=== PATIENT | female | born 1950 | race Caucasian/White ===

== ENCOUNTER 2016-05-30 12:26 | Outpatient (CLI) | payer OTHER | END 2016-05-30 12:27 | disposition home or self-care (01) | DX: E11.9 Type 2 diabetes mellitus without complications (principal) ==

== ENCOUNTER 2016-06-06 10:42 | Outpatient (CLI) | payer OTHER | END 2016-06-06 10:43 | disposition home or self-care (01) | DX: M25.50 Pain in unspecified joint (principal) ==

== ENCOUNTER 2016-07-03 09:10 | Outpatient (CLI) | payer OTHER | END 2016-07-03 09:11 | disposition home or self-care (01) | DX: Z12.2 Encounter for screening for malignant neoplasm of respiratory organs (principal); Z87.891 Personal history of nicotine dependence; J43.9 Emphysema, unspecified ==

== ENCOUNTER 2016-12-31 09:56 | Outpatient (CLI) | payer OTHER ==
--- NOTE | 2017-01-01 16:06 | Mammography Report ---
DIGITAL SCREENING MAMMOGRAM: 12/31/2016 CLINICAL INDICATION: A 66-year-old, for screening. COMPARISON: 10/2015, 10/2014, 09/2013, 09/2012, 09/2011, 07/2010, 07/2009. TECHNIQUE: Routine CC and MLO projections were obtained of the breasts. FINDINGS: Parenchymal tissue within both breasts is heterogeneously dense, which may lower the sensi tivity of mammography; however, there are no dominant masses, suspicious microcalcifications, or seco ndary signs of malignancy. In comparison to the previous studies, there are no significant changes. ASSESSMENT: NO MAMMOGRAPHIC EVIDENCE OF MALIGNANCY. NO SIGNIFICANT INTERVAL CHANGES. RECOMMENDATION: Screening mammography is recommended annually. BIRADS category 1 - negative. STANDARD QUALIFYING STATEMENTS 1. This examination was reviewed with the aid of Computed-Aided Detection (CAD). 2. A negative or benign imaging report should not delay biopsy if clinically suspicious findings are present. Consider surgical consultation if warranted. More than 5% of cancers are not identified by i maging. 3. Dense breasts may obscure an underlying neoplasm. JOB #: [id number] EXT JOB #:[id number]
== END 2016-12-31 09:57 | disposition home or self-care (01) ==
LOC: DI.N 09:56
PROVIDERS: ATTEND Family Medicine
DX: Z12.31 Encounter for screening mammogram for malignant neoplasm of breast (principal)
CPT/HCPCS: 77067

== ENCOUNTER 2017-06-27 08:00 | Outpatient (CLI) | payer OTHER ==
[2017-06-27 13:42] LABS: BASOPHILS % (AUTO) 0.3 %; EOSINOPHILS # (AUTO) 0.2 10^3/uL (0.0-0.7); EOSINOPHILS % (AUTO) 2.5 %; HGB - HEMOGLOBIN 12.4 g/dL (12.0-16.0); LYMPHOCYTES # (AUTO) 2.9 10^3/uL (1.5-3.5); LYMPHOCYTES % (AUTO) 44.2 %; MEAN CORPUSCULAR HEMOGLOBIN 30.5 pg (27.0-31.0); MEAN CORPUSCULAR VOLUME 89.8 fL (81.0-99.0); MEAN PLATELET VOLUME 8.2 fL (7.9-10.8); MONOCYTES # (AUTO) 0.6 10^3/uL (0.0-1.0); MONOCYTES % (AUTO) 9.2 %; NEUTROPHILS # (AUTO) 2.9 10^3/uL (1.5-6.6); NEUTROPHILS % (AUTO) 43.8 %; PLT - PLATELET COUNT 234 10^3/uL (130-450); RED BLOOD COUNT 4.05 10^6/uL (4.20-5.40); RED CELL DISTRIBUTION WIDTH 13.9 % (12.0-15.0); WHITE BLOOD COUNT 6.6 x10^3/uL (4.8-10.8)
[2017-06-27 14:04] LABS: ALBUMIN 4.1 g/dL (3.2-5.5); ALBUMIN/GLOBULIN RATIO 1.3 (1.0-2.2); ALKALINE PHOSPHATASE 61 IU/L (42-121); ALT ALANINE AMINOTRANSFERASE 17 IU/L (10-60); AST ASPARTATE AMINOTRANSFERASE 22 IU/L (10-42); BILIRUBIN,TOTAL 0.7 mg/dL (0.2-1.0); BUN - BLOOD UREA NITROGEN 13 mg/dL (6-20); CALCIUM 8.8 mg/dL (8.5-10.3); CARBON DIOXIDE - CO2 22 mmol/L (21-32); CHLORIDE 100 mmol/L (101-111); CHOL/HDL RATIO 3.1 (<4.4); CHOLESTEROL 137 mg/dL; GFR - MDRD 56 (>89); GLUCOSE 125 mg/dL (70-100); HDL CHOLESTEROL 44 mg/dL; LDL CHOLESTEROL,CALCULATED 52 mg/dL; LDL/HDL RATIO 1.2 (<4.4); SODIUM 131 mmol/L (135-145); TOTAL PROTEIN 7.2 g/dL (6.7-8.2); VLDL CHOLESTEROL 41 mg/dL
[2017-06-27 14:07] LABS: THYROID STIMULATING HORMONE 4.24 uIU/mL (0.34-5.60)
[2017-06-27 14:12] LABS: HB2 TOTAL 13.4 g/dL; HEMOGLOBIN A1C 0.63 g/dL; HEMOGLOBIN A1C % 6.5 % (4.6-6.2)
[2017-06-27 14:13] LABS: FERRITIN 26.4 ng/mL (11.0-306.8)
== END 2017-06-27 08:01 | disposition home or self-care (01) ==
LOC: LAB.WCP 08:00
PROVIDERS: ATTEND Family Medicine
DX: E11.9 Type 2 diabetes mellitus without complications (principal); G25.9 Extrapyramidal and movement disorder, unspecified
CPT/HCPCS: 36415; 80053; 80061; 82043; 82728; 83036; 83721; 84443; 85025

== ENCOUNTER 2017-07-12 07:31 | Outpatient (CLI) | payer OTHER ==
--- NOTE | 2017-07-14 10:42 | CT Report ---
EXAM CT LUNG SCREEN EXAM DATE: 07/12/2017 08:00 AM. HISTORY: 67-year-old patient with 84-ibbq-dvyn smoking history and other risk factors. Currently smok ing: No. Years since quitting: Within the last 15 years. In remission. COMPARISON: 07/03/2016. 10/31/2012. TECHNIQUE: CT examination of the entire thorax without contrast was performed using low-dose techniqu e. Thin section coronal, axial, sagittal and MIP axial images were obtained. In accordance with CT protocol optimization, one or more of the following dose reduction techniques w ere utilized for this exam: automated exposure control, adjustment of mA and/or KV based on patient s ize, or use of iterative reconstructive technique. FINDINGS: Nodules: Right upper lobe: None. Right middle lobe: None. Right lower lobe: None. Left upper lobe: None. Left lower lobe: None. Emphysema: Emphysematous changes again evident. Pleura: Unremarkable. Aorta: Calcified plaque in the thoracic aorta. No aneurysm. Mediastinum: Visualized thyroid gland is unremarkable. No enlarged mediastinal or hilar lymph nodes o n these unenhanced images. The largest lymph node is precarinal measuring 8-9 mm with fatty hilum. Fi ndings are unchanged. Tiny hiatal hernia. Coronary Calcifications: Moderate degree of coronary artery calcified plaque. Other Findings: Bronchial dilatation is noted bilaterally with scattered very minimal ground-glass op acities. There is bronchial dilatation. There is linear scar/atelectasis bilaterally. Included portions of the liver, gallbladder, spleen, adrenals and kidneys are unremarkable. Fatty rep lacement of the pancreas. Abdominal aortic calcified plaque. Included portions of the stomach and sma ll bowel are unremarkable. Included portions of the colon demonstrate several diverticula. Degenerative changes of the thoracic spine. Thoracic scoliosis. Small left fifth rib again seen. IMPRESSION: Lung-RADS ASSESSMENT CATEGORY: 1 - negative. Probability of malignancy: Follow-up low-dose chest CT in 12 months with annual screening. RECOMMENDATION: Recommended follow up based on Lung-RADS guidelines. [facility] Referring Provider Line: [phone] SITE ID: [id number]
== END 2017-07-12 07:32 | disposition home or self-care (01) ==
LOC: DI 07:31
PROVIDERS: ATTEND Family Medicine
DX: Z12.2 Encounter for screening for malignant neoplasm of respiratory organs (principal); J43.9 Emphysema, unspecified; I25.10 Atherosclerotic heart disease of native coronary artery without angina pectoris; Z87.891 Personal history of nicotine dependence

== ENCOUNTER 2018-04-01 10:09 | Outpatient (CLI) | payer MEDICARE ==
--- NOTE | 2018-04-03 08:46 | Mammography Report ---
Reason: SCREENING MAMMO Procedure Date: 04/01/2018 Accession Number: [id number] / [id number] Procedure: MGN - Screening Mammo Dig Bilat CPT Code: FULL RESULT: EXAM: Screening Mammo Dig Bilat DATE: 04/01/2018 10:41 AM CLINICAL HISTORY: 68-year-old female presents for screening. TECHNIQUE: Bilateral CC and MLO views were obtained. COMPARISON: 12/31/2016, 10/24/2015, 10/20/2014, 10/10/2014. FINDINGS: The breasts demonstrate heterogeneously dense fibroglandular parenchyma bilaterally. No suspicious masses, clustered microcalcifications, or regions of architectural distortion are identified. IMPRESSION: Negative examination RECOMMENDATION: Routine annual screening unless otherwise clinically indicated. BIRADS CATEGORY 1: Negative STANDARD QUALIFYING STATEMENTS: 1. This examination was reviewed with the aid of Computer-Aided Detection (CAD). 2. A negative or benign imaging report should not delay biopsy if clinically suspicious findings are present. Consider surgical consultation if warranted. More than 5% of cancers are not identified by imaging. 3. Dense breasts may obscure an underlying neoplasm. 4. This examination was reviewed without the aid of 3D breast imaging (tomosynthesis).
== END 2018-04-01 10:10 | disposition home or self-care (01) ==
LOC: DI.N 10:09
DX: Z12.31 Encounter for screening mammogram for malignant neoplasm of breast (principal)
CPT/HCPCS: 77067

== ENCOUNTER 2018-10-01 12:25 | Outpatient (CLI) | payer MEDICARE ==
--- NOTE | 2018-10-01 15:33 | CT Report ---
Reason: HX OF TOBACCO USE Procedure Date: 10/01/2018 Accession Number: [id number] / [id number] Procedure: CT - Low Dose Lung Cancer Screen CPT Code: FULL RESULT: EXAM CT LUNG SCREEN EXAM DATE: 10/01/2018 12:47 PM. HISTORY: 68-year-old patient with 21-kogl-dylt smoking history. Currently smoking: No. Years since quittin. COMPARISON: CHEST SCREEN LOW DOSE W/O 07/12/2017 7:50 AM. TECHNIQUE: CT examination of the entire thorax without contrast was performed using low-dose technique. Thin section coronal, axial, sagittal and MIP axial images were obtained. In accordance with CT protocol optimization, one or more of the following dose reduction techniques were utilized for this exam: automated exposure control, adjustment of mA and/or KV based on patient size, or use of iterative reconstructive technique. FINDINGS: Nodules: Right upper lobe: 0.6 cm groundglass focus image 30 series 4. 2 mm nodule medially image 30 peripheral calcified 2 mm nodule consistent with granuloma image 51. Right middle lobe: None. Right lower lobe: None. Left upper lobe: None. Left lower lobe: 3 mm nodule image 98. Emphysema: Moderate. Pleura: Unremarkable. Aorta: Mildly calcified. Mediastinum: Prominent subcarinal lymph node measuring up to 1.5 cm in short axis with preserved morphology, and does not meet size criteria. Coronary calcifications: Moderate three-vessel calcifications. Other pulmonary findings: None. Other extrapulmonary findings: None. IMPRESSION: Lung-RADS ASSESSMENT CATEGORY: 2 - benign appearance. Probability of malignancy: Less than 1%. RECOMMENDATION: Continue annual low-dose chest CT screening. [facility]
== END 2018-10-01 12:26 | disposition home or self-care (01) ==
LOC: DI 12:25
PROVIDERS: ATTEND Family Medicine
DX: Z12.2 Encounter for screening for malignant neoplasm of respiratory organs (principal); J43.9 Emphysema, unspecified; Z87.891 Personal history of nicotine dependence

== ENCOUNTER 2018-10-28 07:13 | Outpatient (CLI) | payer MEDICARE ==
[2018-10-28 12:52] LABS: ALBUMIN 4.1 g/dL (3.2-5.5); ALBUMIN/GLOBULIN RATIO 1.2 (1.0-2.2); ALKALINE PHOSPHATASE 62 IU/L (42-121); ALT ALANINE AMINOTRANSFERASE 19 IU/L (10-60); AST ASPARTATE AMINOTRANSFERASE 19 IU/L (10-42); BILIRUBIN,TOTAL 0.7 mg/dL (0.2-1.0); BUN - BLOOD UREA NITROGEN 9 mg/dL (6-20); CALCIUM 8.9 mg/dL (8.5-10.3); CARBON DIOXIDE - CO2 23 mmol/L (21-32); CHLORIDE 100 mmol/L (101-111); CHOL/HDL RATIO 2.7 (<4.4); CHOLESTEROL 142 mg/dL; CREATININE 0.9 mg/dL (0.4-1.0); GFR - MDRD 63 (>89); GLUCOSE 141 mg/dL (70-100); HDL CHOLESTEROL 52 mg/dL; LDL CHOLESTEROL,CALCULATED 62 mg/dL; LDL/HDL RATIO 1.2 (<4.4); SODIUM 133 mmol/L (135-145); TOTAL PROTEIN 7.5 g/dL (6.7-8.2); VLDL CHOLESTEROL 28 mg/dL
[2018-10-28 12:59] LABS: HB2 TOTAL 13.3 g/dL; HEMOGLOBIN A1C 0.69 g/dL; HEMOGLOBIN A1C % 6.9 % (4.6-6.2)
== END 2018-10-28 07:14 | disposition home or self-care (01) ==
LOC: LAB.WCP 07:13
PROVIDERS: ATTEND Family Medicine
DX: I10 Essential (primary) hypertension (principal); E78.5 Hyperlipidemia, unspecified; E11.9 Type 2 diabetes mellitus without complications
CPT/HCPCS: 36415; 80053; 80061; 83036; 83721

== ENCOUNTER 2018-12-04 11:15 | Outpatient (CLI) | payer MEDICARE ==
--- NOTE | 2018-12-04 23:36 | Ultrasound Report ---
Reason: DIABETES MELLITUS, NICOTINE ADDICTION, IN REMISSIO Procedure Date: 12/04/2018 Accession Number: [id number] / [id number] Procedure: US - Ankle Brachial Index CPT Code: FULL RESULT: EXAM: BILATERAL ANKLE/BRACHIAL INDEX EXAM DATE: 12/04/2018 12:12 PM. CLINICAL HISTORY: DIABETES MELLITUS, NICOTINE ADDICTION, IN REMISSION. COMPARISON: None. TECHNIQUE: A blood pressure cuff and pulse volume recording Doppler ultrasound was used to evaluate the arterial pressures in the arms and ankle. No images were acquired. FINDINGS: Brachial pressure: Right brachial artery: 155 mmHg, index 1.00 Left brachial artery: 155 mmHg, index 1.00 Right ankle pressures: 155 mmHg, index 1.0 Left ankle pressures: 164 mmHg, index 1.06 IMPRESSION: 1. Right ankle/brachial index: 1.0. 2. Left ankle/brachial index: 1.06. ANKLE/BRACHIAL INDEX REFERENCE STANDARDS 1.0-1.4: Normal 0.90-0.99: Borderline < 0.9: Abnormal [facility]
== END 2018-12-04 11:16 | disposition home or self-care (01) ==
LOC: DI 11:15
PROVIDERS: ATTEND Family Medicine
DX: E11.9 Type 2 diabetes mellitus without complications (principal); F17.201 Nicotine dependence, unspecified, in remission
CPT/HCPCS: 93922

== ENCOUNTER 2019-04-13 09:13 | Outpatient (CLI) | payer MEDICARE ==
--- NOTE | 2019-04-13 15:03 | Mammography Report ---
Reason: ROUTINE MAMMO Procedure Date: 04/13/2019 Accession Number: [id number] / [id number] Procedure: MGN - Screening Mammo Dig Bilat CPT Code: Final Report FULL RESULT: EXAM: Screening Mammo Dig Bilat DATE: 04/13/2019 9:43 AM CLINICAL HISTORY: The patient is an asymptomatic 68-year-old female presenting for screening mammography. No personal nor family history breast cancer. TECHNIQUE: (B) - Bilateral CC and MLO views were obtained. COMPARISON: 04/01/2018, a 01/07/2016, 10/24/2015, 10/10/2014 and 10/05/2013 PARENCHYMAL PATTERN: (D) - The breasts demonstrate heterogeneously dense fibroglandular parenchyma bilaterally. FINDINGS: The pattern of asymmetry is stable given positional variation. There are no suspicious masses, calcifications, or areas of distortion. IMPRESSION: Negative examination. BI-RADS category 1. RECOMMENDATION: (ANNUAL) - Recommend routine annual screening mammography. BI-RADS CATEGORY: (1) - Negative. STANDARD QUALIFYING STATEMENTS: 1. This examination was not reviewed with the aid of Computer-Aided Detection (CAD). 2. A negative or benign imaging report should not preclude biopsy if clinically suspicious findings are present. 3. Dense breasts may obscure an underlying neoplasm.
== END 2019-04-13 09:14 | disposition home or self-care (01) ==
LOC: DI.N 09:13
DX: Z12.31 Encounter for screening mammogram for malignant neoplasm of breast (principal)
CPT/HCPCS: 77067

== ENCOUNTER 2019-04-20 08:00 | Outpatient (CLI) | payer MEDICARE ==
[2019-04-20 13:53] LABS: BASOPHILS % (AUTO) 0.5 %; EOSINOPHILS # (AUTO) 0.2 10^3/uL (0.0-0.7); EOSINOPHILS % (AUTO) 2.9 %; HGB - HEMOGLOBIN 12.7 g/dL (12.0-16.0); LYMPHOCYTES # (AUTO) 2.8 10^3/uL (1.5-3.5); LYMPHOCYTES % (AUTO) 36.2 %; MEAN CORPUSCULAR HEMOGLOBIN 30.5 pg (27.0-31.0); MEAN CORPUSCULAR HGB CONC 32.2 g/dL (32.0-36.0); MEAN CORPUSCULAR VOLUME 94.5 fL (81.0-99.0); MONOCYTES # (AUTO) 0.7 10^3/uL (0.0-1.0); MONOCYTES % (AUTO) 8.7 %; NEUTROPHILS # (AUTO) 3.9 10^3/uL (1.5-6.6); NEUTROPHILS % (AUTO) 51.2 %; PLT - PLATELET COUNT 246 10^3/uL (130-450); RED BLOOD COUNT 4.17 10^6/uL (4.20-5.40); RED CELL DISTRIBUTION WIDTH 13.8 % (12.0-15.0); WHITE BLOOD COUNT 7.7 x10^3/uL (4.8-10.8)
[2019-04-20 14:04] LABS: ALBUMIN 4.1 g/dL (3.2-5.5); ALBUMIN/GLOBULIN RATIO 1.3 (1.0-2.2); ALKALINE PHOSPHATASE 56 IU/L (42-121); ALT ALANINE AMINOTRANSFERASE 17 IU/L (10-60); AST ASPARTATE AMINOTRANSFERASE 18 IU/L (10-42); BILIRUBIN,TOTAL 0.9 mg/dL (0.2-1.0); BUN - BLOOD UREA NITROGEN 8 mg/dL (6-20); CALCIUM 9.1 mg/dL (8.5-10.3); CARBON DIOXIDE - CO2 25 mmol/L (21-32); CHLORIDE 97 mmol/L (101-111); CHOL/HDL RATIO 2.8 (<4.4); CHOLESTEROL 129 mg/dL; CREATININE 0.9 mg/dL (0.4-1.0); GFR - MDRD 62 (>89); GLUCOSE 136 mg/dL (70-100); HDL CHOLESTEROL 46 mg/dL; LDL CHOLESTEROL,CALCULATED 52 mg/dL; LDL/HDL RATIO 1.1 (<4.4); SODIUM 132 mmol/L (135-145); TOTAL PROTEIN 7.3 g/dL (6.7-8.2); VLDL CHOLESTEROL 31 mg/dL
[2019-04-20 14:27] LABS: HB2 TOTAL 12.9 g/dL; HEMOGLOBIN A1C 0.68 g/dL
[2019-04-20 14:44] LABS: CREATININE,URINE 211.9 mg/dL; MICROALBUM/CREATININE RATIO,UR 265.2 ug/mg (<30.0); MICROALBUMIN,URINE 56.2 mg/dL (0-300.0)
== END 2019-04-20 23:59 | disposition home or self-care (01) ==
LOC: LAB.WCP 08:00
PROVIDERS: ATTEND Family Medicine
DX: I10 Essential (primary) hypertension (principal); E11.9 Type 2 diabetes mellitus without complications; E78.5 Hyperlipidemia, unspecified
CPT/HCPCS: 36415; 80053; 80061; 82043; 82570; 83036; 83721; 84443; 85025

== ENCOUNTER 2019-11-16 07:19 | Outpatient (CLI) | payer MEDICARE ==
[2019-11-16 12:57] LABS: ALBUMIN 4.5 g/dL (3.2-5.5); ALBUMIN/GLOBULIN RATIO 1.6 (1.0-2.2); BILIRUBIN,TOTAL 0.6 mg/dL (0.2-1.0); CALCIUM 9.4 mg/dL (8.5-10.3); CREATININE 0.9 mg/dL (0.4-1.0); TOTAL PROTEIN 7.3 g/dL (6.7-8.2)
[2019-11-16 13:31] LABS: HB2 TOTAL 13.1 g/dL; HEMOGLOBIN A1C 0.63 g/dL; HEMOGLOBIN A1C % 6.6 % (4.6-6.2)
== END 2019-11-16 23:59 | disposition home or self-care (01) ==
LOC: LAB.WCP 07:19
PROVIDERS: ATTEND Family Medicine
DX: G89.18 Other acute postprocedural pain (principal); M25.561 Pain in right knee
CPT/HCPCS: 36415; 80053; 83036

== ENCOUNTER 2020-01-19 10:56 | Outpatient (CLI) | payer MEDICARE ==
--- NOTE | 2020-01-19 14:10 | CT Report ---
PROCEDURE: Low Dose Lung Cancer Screen INDICATIONS: NICOTINE ADDICTION,IN REMISSION TECHNIQUE: Noncontrast low-dose 5 mm thick sections acquired from the pulmonary apices to the posterior costophr enic angles. 7 mm thick coronal and sagittal MIP reformats were then acquired. For radiation dose r eduction, the following was used: automated exposure control, adjustment of mA and/or kV according t o patient size. COMPARISON: 10/01/2018 FINDINGS: Image quality: Excellent. Lungs and pleura: Subpleural paraseptal emphysematous changes in the apices bilaterally. Occasional centrilobular emphysema. Minor peripheral reticulation in the midlung zones and septal thickening at the lung bases. The right upper lobe 6 mm groundglass nodule and 2 mm medial apical nodule are no quynh yamilet seen. Subpleural granuloma anteriorly in the right upper lobe is stable. There is a 5 mm nodule i n the juxta fissural right middle lobe adjacent patchy groundglass atelectatic changes. No left lung nodules or suspicious masses. Airways are patent and of normal caliber. No pleural effusion. Mediastinum: Heart size is normal. Mild coronary artery calcification. No pericardial effusion. St able prominent precarinal lymph node measures 1.3 cm with preserved benign morphology. No other adeno chidi. Thoracic aorta and central pulmonary arteries are normal in size. Esophagus is normal in robert lisa. No hiatal hernia. Bones and chest wall: There is been a left fifth rib resection and there is mild thickening of the p osterolateral left pleural surface. Moderate S-shaped scoliosis of the thoracic spine with multilevel disc and endplate degeneration. No suspicious bony lesions. No vertebral body compression fractures . No axillary or supraclavicular adenopathy by size criteria. The thyroid is normal in size. Abdomen: Visualized upper abdomen solid organs and bowel loops appear normal in the absence of contr ast. IMPRESSION: 1. 5 mm juxta fissural right middle lobe lung nodule is likely a lymph node. 2. Emphysematous changes and minor peripheral reticulation. No other changes of pulmonary fibrosis. 3. Scoliosis, accentuated by remote left fifth rib resection. Reviewed by: Yovana Bryson MD on 01/19/2020 2:08 PM PDT Approved by: Yovana Bryson MD on 01/19/2020 2:08 PM PDT Station ID: [id number]
== END 2020-01-19 10:57 | disposition home or self-care (01) ==
LOC: DI 10:56
PROVIDERS: ATTEND Family Medicine
DX: Z12.2 Encounter for screening for malignant neoplasm of respiratory organs (principal); R91.1 Solitary pulmonary nodule; J43.9 Emphysema, unspecified; M41.9 Scoliosis, unspecified; F17.201 Nicotine dependence, unspecified, in remission
CPT/HCPCS: G0297 ×2

== ENCOUNTER 2020-03-02 06:32 | Day surgery (SDC) | payer MEDICARE ==
[2020-03-02] MEDS ORDERED: LACTATED RINGERS 1,000 ML IV ONE ×2 (06:55→09:01)
[2020-03-02] MEDS ORDERED: MIDAZOLAM 2 MG/2 ML VIAL IVP ONE (08:15)
[2020-03-02] MEDS ORDERED: fentaNYL 250 MCG/5 ML VIAL IVP ONE (08:15)
[2020-03-02 09:25] VITALS: BP 112/54
== END 2020-03-02 06:33 | disposition home or self-care (01) ==
LOC: SDS 06:32
PROVIDERS: ATTEND Surgery
PROC: 0DBL8ZZ Excision of Transverse Colon, Via Natural or Artificial Opening Endoscopic (ICD-10-PCS; 2020-03-02)
PROC: 0DBM8ZZ Excision of Descending Colon, Via Natural or Artificial Opening Endoscopic (ICD-10-PCS; principal; 2020-03-02 07:30)
DX: Z12.11 Encounter for screening for malignant neoplasm of colon (principal); D12.3 Benign neoplasm of transverse colon; K63.89 Other specified diseases of intestine; K57.30 Diverticulosis of large intestine without perforation or abscess without bleeding; Z87.891 Personal history of nicotine dependence
CPT/HCPCS: 45380; J3010; J7120

== ENCOUNTER 2020-05-17 08:49 | Outpatient (CLI) | payer MEDICARE ==
--- NOTE | 2020-05-18 12:30 | Mammography Report ---
BILATERAL DIGITAL SCREENING MAMMOGRAM 3D/2D: 05/17/2020 CLINICAL: Routine screening. Comparison is made to exams dated: 04/13/2019 mammogram, 04/01/2018 mammogram, 12/31/2016 mammogram, mammogram, 10/20/2014 mammogram, and 10/10/2014 mammogram - [facility]. The tissue of both breasts is predominantly fatty. No significant masses, calcifications, or other findings are seen in either breast. There has been no significant interval change. IMPRESSION: NEGATIVE There is no mammographic evidence of malignancy. Return to annual mammogram screening schedule is rec ommended. This exam was interpreted at Station ID: [id number]. NOTE: For mammograms, a report in lay terms will be sent to the patient. Approximately 15% of breast malignancies will not be visualized mammographically. In the management of a palpable breast mass, a negative mammogram must not discourage biopsy of a clinically suspicious lesion. Electronically Signed By: Vitaly Webber M.D., jr/velma:05/17/2020 09:27:41 ACR BI-RADS Category 1: Negative 3341F PARENCHYMAL PATTERN: (F) - The breast(s) demonstrate(s) diffuse fatty replacement. BI-RADS CATEGORY: (1) - 1 RECOMMENDATION: (ANNUAL) - Recommend routine annual screening mammography. [id number] return to screening LATERALITY: (B)
== END 2020-05-17 08:50 | disposition home or self-care (01) ==
LOC: DI.N 08:49
DX: Z12.31 Encounter for screening mammogram for malignant neoplasm of breast (principal)
CPT/HCPCS: 77067

== ENCOUNTER 2020-05-23 07:20 | Outpatient (CLI) | payer MEDICARE ==
[2020-05-23 12:56] LABS: HEMOGLOBIN A1c% 6.9 % (4.27-6.07)
[2020-05-23 13:20] LABS: BASOPHILS % (AUTO) 0.3 %; EOSINOPHILS # (AUTO) 0.3 10^3/uL (0.0-0.7); EOSINOPHILS % (AUTO) 4.9 %; HGB - HEMOGLOBIN 12.2 g/dL (12.0-16.0); LYMPHOCYTES # (AUTO) 2.5 10^3/uL (1.5-3.5); LYMPHOCYTES % (AUTO) 37.1 %; MEAN CORPUSCULAR HGB CONC 32.8 g/dL (32.0-36.0); MEAN CORPUSCULAR VOLUME 94.4 fL (81.0-99.0); MONOCYTES # (AUTO) 0.5 10^3/uL (0.0-1.0); NEUTROPHILS # (AUTO) 3.3 10^3/uL (1.5-6.6); NEUTROPHILS % (AUTO) 49.4 %; PLT - PLATELET COUNT 252 10^3/uL (130-450); RED BLOOD COUNT 3.94 10^6/uL (4.20-5.40); RED CELL DISTRIBUTION WIDTH 13.3 % (12.0-15.0); WHITE BLOOD COUNT 6.8 x10^3/uL (4.8-10.8)
[2020-05-23 13:42] LABS: CREATININE,URINE 140.4 mg/dL; MICROALBUM/CREATININE RATIO,UR 67.7 ug/mg (<30.0); MICROALBUMIN,URINE 9.5 mg/dL (0-300.0)
[2020-05-23 14:00] LABS: ALBUMIN/GLOBULIN RATIO 1.3 (1.0-2.2); ALKALINE PHOSPHATASE 57 IU/L (42-121); ALT ALANINE AMINOTRANSFERASE 14 IU/L (10-60); AST ASPARTATE AMINOTRANSFERASE 14 IU/L (10-42); BILIRUBIN,TOTAL 0.7 mg/dL (0.2-1.0); BUN - BLOOD UREA NITROGEN 9 mg/dL (6-20); CARBON DIOXIDE - CO2 25 mmol/L (21-32); CHLORIDE 95 mmol/L (101-111); CHOL/HDL RATIO 2.4 (<4.4); CHOLESTEROL 117 mg/dL; CREATININE 0.9 mg/dL (0.4-1.0); GLUCOSE 120 mg/dL (70-100); HDL CHOLESTEROL 48 mg/dL; LDL CHOLESTEROL,CALCULATED 52 mg/dL; LDL/HDL RATIO 1.1 (<4.4); SODIUM 129 mmol/L (135-145); TOTAL PROTEIN 7.2 g/dL (6.7-8.2); VLDL CHOLESTEROL 17 mg/dL
== END 2020-05-23 23:59 | disposition home or self-care (01) ==
LOC: LAB.WCP 07:20
PROVIDERS: ATTEND Family Medicine
DX: E87.1 Hypo-osmolality and hyponatremia (principal); E11.9 Type 2 diabetes mellitus without complications
CPT/HCPCS: 36415; 80053; 80061; 82043; 82570; 83036; 83721; 83930; 83935; 84300; 84443; 85025

== ENCOUNTER 2020-05-23 09:09 | Inpatient (IN) | payer MEDICARE ==
--- NOTE | 2020-05-23 10:19 | ED Physician Documentation ---
History of Present Illness - Stated complaint Stated Complaint: GLF - Chief complaint Chief Complaint: Trauma Ch/Bk - History obtained from History obtained from: Patient - Additonal information Additional information: Patient comes emergency department chief complaint of left shoulder, tailbone, and hip pain after sustaining a ground-level fall on the sidewalk. Patient states that she is not sure exactly what happened to cause her fall. She states she did not feel dizzy and thinks she may have just missed the curb or tripped on something. She states that somebody helped her get up into the car, but it hurt to walk. She did not hit her head or lose consciousness. No other complaints at this time. Review of Systems Ten Systems: 10 systems reviewed and negative Constitutional: reports: Reviewed and negative Eyes: reports: Reviewed and negative Ears: reports: Reviewed and negative Nose: reports: Reviewed and negative Throat: reports: Reviewed and negative Cardiac: reports: Reviewed and negative Respiratory: reports: Reviewed and negative GI: reports: Reviewed and negative : reports: Reviewed and negative Skin: reports: Reviewed and negative Musculoskeletal: reports: Extremity pain, Joint pain Neurologic: reports: Reviewed and negative Psychiatric: reports: Reviewed and negative Endocrine: reports: Reviewed and negative Immunocompromised: reports: Reviewed and negative PD PAST MEDICAL HISTORY - Past Medical History Cardiovascular: Hypertension, High cholesterol Respiratory: Other Endocrine/Autoimmune: Type 2 diabetes GI: Colon polyps : None HEENT: Other Psych: None Musculoskeletal: Osteoarthritis, Osteoporosis, Osteopenia Derm: None - Past Surgical History General: Colonoscopy Ortho: Knee replacement, Carpal Tunnel surgery HEENT: Tonsil/Adenoidectomy - Present Medications Home Medications: Ambulatory Orders Medication Instructions Recorded Confirmed Aspirin [Aspir 81] 81 mg PO DAILY 12/22/12 05/24/20 Atorvastatin Calcium 20 mg PO QPM 12/22/12 05/24/20 Calcium Carbonate/Vitamin D3 1 each PO BID 12/22/12 05/24/20 [Calcium + Vitamin D Tablet] Metformin HCl 1,000 mg PO BID 12/22/12 05/24/20 Pramipexole Di-HCl [Pramipexole 0.375 mg PO QPM 12/22/12 05/24/20 Dihydrochloride] diltiaZEM [Cardizem] 30 mg PO QPM 12/22/12 05/24/20 LORazepam [Lorazepam] 0.5 mg PO DAILY PRN 12/10/13 05/24/20 Gabapentin 300 mg PO BID 03/01/20 05/24/20 Metoprolol Succinate 25 mg PO BID 03/01/20 05/24/20 Albuterol Sulfate [Proair Hfa 1 - 2 puffs INH Q4H PRN 03/02/20 05/24/20 Inhaler] Iron,Carbonyl [Iron Chews] 1,565 mg PO DAILY 03/02/20 05/24/20 Loratadine 10 mg PO DAILY 03/02/20 05/24/20 Melatonin 5 mg PO DAILY 03/02/20 05/24/20 - Allergies Allergies/Adverse Reactions: Allergies Allergy/AdvReac Type Severity Reaction Status Date / Time No Known Drug Allergies Allergy Verified 05/23/20 09:19 - Social History Does the pt smoke?: No Smoking Status: Never smoker Does the pt drink ETOH?: Yes ETOH Use: Wine Does the pt have substance abuse?: No PD ED PE NORMAL - Vitals Vital signs reviewed: Yes - General General: Alert and oriented X 3, No acute distress - HEENT HEENT: Atraumatic, PERRL, EOMI, Moist mucous membranes - Neck Neck: Supple, no meningeal sign, No bony TTP - Cardiac Cardiac: RRR, No murmur, Strong equal pulses - Respiratory Respiratory: No respiratory distress, Clear bilaterally - Abdomen Abdomen: Soft, Non tender, Non distended - Derm Derm: Normal color, Warm and dry, No rash - Extremities Extremities: No deformity, Other (Tenderness palpation over posterior aspect of patient's left hip. Pain with attempts at range of motion. Mild shortening and rotation of the left lower extremity.) - Neuro Neuro: Alert and oriented X 3 - Psych Psych: Normal mood, Normal affect Results - Vitals Vitals: Oxygen O2 Source Room air - EKG (time done) 1034 Rate: Rate (enter#) (78) Rhythm: NSR, LAE Hood: Normal Intervals: Normal CA QRS: Normal Ischemia: Normal ST segments, Non specific changes Compare to prior EKG: Old EKG unavailable Computer interpretation: Agree with computer - Labs Labs: Laboratory Tests 05/23/20 05/23/20 05/23/20 10:29 10:29 10:29 WBC 14.8 H RBC 3.78 L Hgb 11.6 L Hct 36.0 L MCV 95.2 MCH 30.7 MCHC 32.2 RDW 13.3 Plt Count 230 MPV 9.6 Neut # (Auto) 12.3 H Lymph # (Auto) 1.3 L [place] # (Auto) 1.0 Eos # (Auto) 0.1 Baso # (Auto) 0.0 Absolute Nucleated RBC 0.00 Nucleated RBC % 0.0 PT 11.7 INR 1.0 Sodium Potassium Chloride Carbon Dioxide Anion Gap BUN Creatinine Estimated GFR (MDRD) Glucose Calcium Total Bilirubin AST ALT Alkaline Phosphatase Total Protein Albumin Globulin Albumin/Globulin Ratio Lipase Blood Type O POSITIVE Antibody Screen NEGATIVE 05/23/20 10:29 WBC RBC Hgb Hct MCV MCH MCHC RDW Plt Count MPV Neut # (Auto) Lymph # (Auto) [place] # (Auto) Eos # (Auto) Baso # (Auto) Absolute Nucleated RBC Nucleated RBC % PT INR Sodium 129 L Potassium 4.3 Chloride 95 L Carbon Dioxide 24 Anion Gap 10.0 BUN 10 Creatinine 0.9 Estimated GFR (MDRD) 62 L Glucose 149 H Calcium 8.9 Total Bilirubin 0.6 AST 21 ALT 13 Alkaline Phosphatase 59 Total Protein 6.5 L Albumin 3.8 Globulin 2.7 Albumin/Globulin Ratio 1.4 Lipase 29 Blood Type Antibody Screen - Rads (name of study) L hip/pelvis XR Radiology: Final report received, EMP read indepedently, See rad report (subcapital fx) CXR Radiology: Final report received, EMP read indepedently, See rad report (NAD) PD MEDICAL DECISION MAKING - ED course Complexity details: reviewed results, re-evaluated patient, considered differential, d/w patient, d/w education sales consultant ED course: The patient was worked up with x-rays of the left hip and pelvis, and found to have a subcapital fracture with possible rami fractures, as well. I did speak with Dr. Erickson about this, who agreed to consult on the patient but asked that medicine admit primarily. I spoke with Dr. Bunn, who did agree to admit to his service. The patient was treated symptomatically for her pain. Preoperative studies, including labs, EKG, and chest x-ray obtained in the emergency department. I discussed the findings with the patient, who is stable in the emergency department. Departure - Departure Disposition: 68 [facility] DC/Xfer Clinical Impression: Hip fracture Qualifiers: Encounter type: initial encounter Fracture type: closed Laterality: left Qualified Code(s): S72.002A - Fracture of unspecified part of neck of left femur, initial encounter for closed fracture Pelvic fracture Qualifiers: Encounter type: initial encounter Pelvic bone location: other part of pelvis Fracture type: closed Qualified Code(s): S32.89XA - Fracture of other parts of pelvis, initial encounter for closed fracture Condition: Serious Discharge Date/Time: 05/23/20 11:52
[2020-05-23] MEDS ORDERED: HYDROmorphone 1 MG/ML CARPUJECT IVP STA (10:24)
--- NOTE | 2020-05-23 10:31 | XRAY Report ---
PROCEDURE: Hip w/Pelvis 2-3V LT INDICATIONS: GLF, pain TECHNIQUE: AP pelvis with lateral view(s) of the left hip(s). COMPARISON: None. FINDINGS: Bones: There are degenerative changes of the bilateral hip joints more severe on the left. Suggestio n of mild cortical irregularity overlying the superolateral margin of the left femoral head possibly representing a prominent osteophyte. There is also cortical irregularity of the left mid superior pub ic ramus as well as the left inferior pubic ramus near the pubic symphysis. Moderate degenerative víctor nges of the lower lumbar spine. No suspicious bony lesions. Soft tissues: The visualized bowel gas pattern is normal. No suspicious soft tissue calcifications. IMPRESSION: Possible subcapital left femoral neck fracture versus prominent marginal osteophyte. Suspected left superior and inferior pubic ramus fracture. Consider CT of the pelvis to confirm findings. Reviewed by: Santhosh Garcia MD on 05/23/2020 9:30 AM [facility] Approved by: Santhosh Garcia MD on 05/23/2020 9:30 AM [facility] Station ID: [id number]
--- NOTE | 2020-05-23 10:34 | XRAY Report ---
PROCEDURE: Shoulder 3 View LT INDICATIONS: GLF, pain TECHNIQUE: 3 views of the shoulder were acquired. COMPARISON: None. FINDINGS: Bones: There is a nondisplaced fracture of the distal left clavicle in close proximity to the acromio clavicular joint. Degenerative changes of the acromioclavicular joint are also noted. Coracoclavicula r interval is maintained. No suspicious bony lesions. Visualized ribs appear intact. Soft tissues: No suspicious soft tissue calcifications. IMPRESSION: Nondisplaced fracture of the distal left clavicle, just medial to the acromioclavicular joint. Reviewed by: Santhosh Garcia MD on 05/23/2020 9:33 AM [facility] Approved by: Santhosh Garcia MD on 05/23/2020 9:33 AM [facility] Station ID: [id number]
[2020-05-23 10:48] LABS: BASOPHILS % (AUTO) 0.2 %; EOSINOPHILS # (AUTO) 0.1 10^3/uL (0.0-0.7); EOSINOPHILS % (AUTO) 0.6 %; HGB - HEMOGLOBIN 11.6 g/dL (12.0-16.0); LYMPHOCYTES # (AUTO) 1.3 10^3/uL (1.5-3.5); LYMPHOCYTES % (AUTO) 8.6 %; MEAN CORPUSCULAR HEMOGLOBIN 30.7 pg (27.0-31.0); MEAN CORPUSCULAR HGB CONC 32.2 g/dL (32.0-36.0); MEAN CORPUSCULAR VOLUME 95.2 fL (81.0-99.0); MEAN PLATELET VOLUME 9.6 fL (7.9-10.8); MONOCYTES % (AUTO) 6.4 %; NEUTROPHILS # (AUTO) 12.3 10^3/uL (1.5-6.6); NEUTROPHILS % (AUTO) 83.6 %; PLT - PLATELET COUNT 230 10^3/uL (130-450); RED BLOOD COUNT 3.78 10^6/uL (4.20-5.40); RED CELL DISTRIBUTION WIDTH 13.3 % (12.0-15.0); WHITE BLOOD COUNT 14.8 x10^3/uL (4.8-10.8)
[2020-05-23 10:54] LABS: PT - PROTHROMBIN TIME 11.7 secs (9.9-12.6)
[2020-05-23 11:07] LABS: ALBUMIN 3.8 g/dL (3.2-5.5); ALBUMIN/GLOBULIN RATIO 1.4 (1.0-2.2); BILIRUBIN,TOTAL 0.6 mg/dL (0.2-1.0); CALCIUM 8.9 mg/dL (8.5-10.3); CREATININE 0.9 mg/dL (0.4-1.0); TOTAL PROTEIN 6.5 g/dL (6.7-8.2)
--- NOTE | 2020-05-23 11:13 | XRAY Report ---
PROCEDURE: Chest 1 View X-Ray INDICATIONS: chest pain TECHNIQUE: One view of the chest was acquired. COMPARISON: 08/09/2014 FINDINGS: Surgical changes and devices: None. Lungs and pleura: No pleural effusions or pneumothorax. Lungs are clear. Mediastinum: Mediastinal contours appear normal. Heart size is normal. Bones and chest wall: Chronic left fourth rib fracture stable compared to prior exam. Convex right t horacic spine scoliosis is stable. No suspicious bony lesions. Overlying soft tissues appear unremar kable. IMPRESSION: No acute cardiopulmonary disease process. If there is clinical concern for rib fracture, consider ded icated left rib series for further evaluation. Reviewed by: Bridget Bahena MD, PhD on 05/23/2020 11:12 AM PST Approved by: Bridget Bahena MD, PhD on 05/23/2020 11:12 AM PST Station ID: [id number]
[2020-05-23] MEDS ORDERED: ACETAMINOPHEN 325 MG TABLET PO PRN (11:16)
--- NOTE | 2020-05-23 11:22 | HISTORY & PHYSICAL EXAMINATION ---
Chief Complaint - Chief Complaint Chief Complaint: Left hip pain/fracture status post mechanical fall History of Present Illness - Admitted From Admitted From:: [facility] ED - History Obtained From Records Reviewed: yes History obtained from: patient - History of Present Illness HPI Comment/Other: Patient is a 70 -year-old female with medical history significant for diabetes mellitus on Metformin, hypertension and hyperlipidemia who presented to the ED after a mechanical fall. 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 She had gone there to assist when she realized the business was still closed. While she was going back to the car she slipped on the curb and fell. She did not hit her head or blackout. Her fall was witnessed by passerby's who came to the aid. Her then brought her to the ED via personal car. Work-up in the ED included an x-ray of the pelvis and hip which was significant for a left subcapital femoral neck fracture. Consequently the patient was presented for admission for further treatment. At bedside she was trying to rest but appeared to be in moderate to severe pain. She denied chest pain, abdominal pain, nausea, vomiting, fever or chills. Dr. Aldo Erickson with orthopedic surgery was contacted and is agreeable to see the patient in consult. History - Past Medical History Cardiovascular: reports: Hypertension, High cholesterol Respiratory: reports: Other Endocrine/Autoimmune: reports: Type 2 diabetes GI: reports: Colon polyps : reports: None HEENT: reports: Other Psych: reports: None Musculoskeletal: reports: Osteoarthritis, Osteoporosis, Osteopenia Derm: reports: None MRSA Hx?: No - Past Surgical History General: reports: Colonoscopy Ortho: reports: Knee replacement, Carpal Tunnel surgery HEENT: reports: Tonsil/Adenoidectomy - Family & Social History Family History Comment/Other: Patient's father and mother had significant cardiac history is on both underwent CABG Social History Notes: She lives at home with her . She quit smoking 15 years ago. She has a 35-year pack per day history. She occasionally drinks alcohol but denied any recreational substances. - POLST Patient has POLST: No POLST Status: Full Code Meds/Allgy - Home Medications Home Medications: Ambulatory Orders Medication Instructions Recorded Confirmed Aspirin [Aspir 81] 81 mg PO DAILY 12/22/12 05/23/20 Atorvastatin Calcium 20 mg PO QPM 12/22/12 05/23/20 Calcium Carbonate/Vitamin D3 1 each PO BID 12/22/12 05/23/20 [Calcium + Vitamin D Tablet] Metformin HCl 1,000 mg PO BID 12/22/12 05/23/20 Pramipexole Di-HCl [Pramipexole 0.375 mg PO QPM 12/22/12 05/23/20 Dihydrochloride] diltiaZEM [Cardizem] 30 mg PO QPM 12/22/12 05/23/20 LORazepam [Lorazepam] 0.5 mg PO DAILY PRN 12/10/13 05/23/20 Gabapentin 300 mg PO BID 03/01/20 05/23/20 Metoprolol Succinate 25 mg PO BID 03/01/20 05/23/20 Albuterol Sulfate [Proair Hfa 1 - 2 puffs INH Q4H PRN 03/02/20 05/23/20 Inhaler] Iron,Carbonyl [Iron Chews] 1,565 mg PO DAILY 03/02/20 05/23/20 Loratadine 10 mg PO DAILY 03/02/20 05/23/20 Melatonin 5 mg PO DAILY 03/02/20 05/23/20 - Allergies Allergies/Adverse Reactions: Allergies Allergy/AdvReac Type Severity Reaction Status Date / Time No Known Drug Allergies Allergy Verified 05/23/20 09:19 Review of Systems - Constitutional Constitutional: denies: Fatigue, Fever, Chills - Eyes Eyes: denies: Pain, Vision loss - Ears, Nose & Throat Ears, Nose & Throat: denies: Ear pain, Sore throat, Hoarseness - Cardiovascular Cariovascular: denies: Irregular heart rate, Palpitations, Chest pain, Edema, Lightheadedness, Syncope, Exertional dyspnea - Respiratory Respiratory: denies: Cough, Wheezing, SOB at rest, SOB with exertion - Gastrointestinal Gastrointestinal: denies: Abdominal pain, Abdominal distention, Constipation, Diarrhea, Black stools, Nausea, Vomiting, Coffee grounds emesis, Reflux/heartburn - Genitourinary Genitourinary: denies: Dysuria, Frequency, Urgency, Hematuria - Musculoskeletal Musculoskeletal: reports: Joint pain (left hip). denies: Muscle pain, Back p ain, Muscle aches - Integumentary Integumentary: denies: Rash, Pruritis, Lesions - Neurological Neurological: denies: General weakness, Focal weakness, Headache, Dizziness, Numbness - Psychiatric Psychiatric: denies: Depression, Anxiety - Endocrine Endocrine: denies: Polyuria, Polydypsia - Hematologic/Lymphatic Hematologic/Lymphatic: denies: Anemia, Bruising, Petechiae Prior Level of Functionality: Patient is a very active person. She is independent of activities of daily living. Exam - Vital Signs Vital Signs: Vital Signs x48h Temp Pulse Resp BP Pulse Ox 05/23/20 11:13 88 L 05/23/20 10:40 78 16 126/74 96 05/23/20 09:51 81 18 142/77 H 92 05/23/20 09:19 36.4 C L 75 16 134/62 H 96 - Physical Exam General Appearance: positive: Alert, Moderate distress Eyes Bilateral: positive: PERRL, EOMI ENT: positive: No signs of dehydration Neck: positive: No JVD, Trachea midline Respiratory: positive: Chest non-tender, No respiratory distress, Breath sounds nml. negative: Wheezes, Rales, Rhonchi Cardiovascular: positive: Regular rate & rhythm, No murmur Abdomen: positive: Non-tender, No organomegaly, Nml bowel sounds, No distention. negative: Guarding, Rebound Back: positive: Nml inspection Skin: positive: Color nml, No rash, Warm. negative: Diaphoresis Extremities: positive: No pedal edema, Other (Left hip pain) Neurologic/Psychiatric: positive: Oriented x3, Mood/affect nml Conclusion/Plan - Problem List (1) Closed left hip fracture Conclusion/Plan: Patient will be n.p.o. after midnight. Pain management with Tylenol, [place] and oral Dilaudid as needed. Dr. Aldo Erickson with orthopedic was consulted and plans for surgery tomorrow. Patient is a very active individual. She is currently medically optimized. According to the ACS NSQIP Surgical risk calculator, the patient has 4.2% risk of any serious complication. This is in comparison to an average risk of 10.7%. The patient has a risk of 3.8% for any complication. This is an comprising to an average risk of 10.5%. The patient is well below the average risk. Her predicted length of stay is 2 days. PT OT to evaluate and treat the patient. The patient would likely need rehab upon discharge. We will asked case management to help facilitate. (2) Diabetes mellitus Conclusion/Plan: We will hold the patient's Metformin. Sliding scale insulin and Accu-Cheks ordered. Carb controlled diet ordered when patient is able to eat. Patient will be n.p.o. after midnight in preparation for surgery. Patient also takes gabapentin 300 mg p.o. twice daily for diabetic neuropathy. (3) Hypertension Conclusion/Plan: Patient is on metoprolol and diltiazem. Will resume. (4) Hyperlipidemia Conclusion/Plan: Patient is on Atorvastatin 20 mg p.o. nightly. (5) Restless leg syndrome Conclusion/Plan: Patient is on pramipexole 0.375mg po daily - Lab Results Fish Bones: 05/23/20 10:29 05/23/20 10:29 Core Measures - Anticipated LOS I expect patient to be DC'd or transferred within 96 hours.: Yes - DVT/VTE - Prophylaxis VTE/DVT Device ordered at admit?: Yes VTE/DVT Prophylaxis med ordered at admit?: Yes
--- NOTE | 2020-05-23 12:46 | CONSULTATION NOTE ---
DATE OF SERVICE: 05/23/2020 Physician: Aldo Erickson MD REFERRING PHYSICIAN: Dr. Opal Cavazos MD, of the emergency room department. CHIEF COMPLAINT: "My left side hurts." HISTORY OF PRESENT ILLNESS: Ms. Marianna Treadwell is a 70-year-old female, retired kitchen work er, employed previously at [employer], who apparently sustained a ground level fall on the sidewalk prior to her admission to the hospital. She complained on presentation of left shoulder and left hip discomfort. She had difficulty standing without pain. She denied any loss of consciou sness or any distal weakness or numbness. PHYSICAL EXAM: The patient does have some slight tenderness with no real swelling over the lateral a spect of her left clavicle. No tenderness around her shoulder joint or proximal humerus was noted. Some pain with passive range of motion of the shoulder. Neurovascular appears to be intact distally in the left upper extremity. The left hip shows some mild tenderness in the anterior groin on palpat ion. No lateral tenderness noted. The leg was minimally shortened or rotated. Has some discomfort with range of motion of her hip. Moves her toes satisfactory. Sensation intact distally. Good capi llary filling noted. Also, on palpation anteriorly, she also has some mild discomfort on palpation o yareli her anterior left site groin. No palpable tenderness or discomfort in her posterior pelvic regio n overlying her SI joints or her lower spine. X-RAYS: Reviewed the x-rays were taken from the emergency room shows a nondisplaced lateral clavicle fracture on the left side. X-rays of her pelvic region shows a nondisplaced left superior and infer ior pubic ramus fracture, also essentially nondisplaced subcapital left hip fracture as well. ASSESSMENT: 1. Closed, nondisplaced left subcapital hip fracture. 2. Left nondisplaced lateral clavicle fracture. 3. Nondisplaced left inferior and superior pubic ramus fractures. PLAN: The patient will be admitted and evaluated preoperatively for anticipated surgery for hip in . Plan on proceeding with multiple cannulated screw fixation of her left hip fracture . She will be n.p.o. after midnight tonight. Her leg has been marked. Her consent has been signed. TD: 05/23/2020 12:39
[2020-05-23] MEDS ORDERED: FLU VACC QS2020-21(6MOS UP)/PF 60 MCG/0.5 ML SYRINGE IM ONE (12:48)
--- NOTE | 2020-05-23 12:57 | CT Report ---
PROCEDURE: PELVIS WO INDICATIONS: hip fx TECHNIQUE: Noncontrast 3 mm axial sections acquired through the bony pelvis, with coronal and sagittal reformatt ing. For radiation dose reduction, the following was used: automated exposure control, adjustment of mA and/or kV according to patient size. COMPARISON: Radiograph from earlier same day. FINDINGS: Image quality: Excellent. Bones: Diffuse osteopenia. Moderate degenerative changes of the bilateral femoral acetabular joints more severe on the left. No definite left femur fracture noted. Findings noted on comparison radiogra ph likely represents prominent marginal osteophyte at the femoral head neck junction. No evidence for cortical disruption. A few prominent nutrient foramen noted. Right femur appears intact. There is a moderately comminuted fracture of the superior left pubic ramus with preservation of the p ubic symphysis interval. There is also a mildly displaced, minimally comminuted fracture of the infer ior left pubic ramus. There is a nondisplaced left sacral alar fracture without diastases of the left sacroiliac joint. The right sacroiliac joint appears intact. Degenerative changes of the lower lumba r spine with chronic appearing anterolisthesis of L4 and L5.. Soft tissues: There is swelling of the left iliopsoas muscle anterior to the left iliac wing. No def inite hematoma or extravasation visualized. Colonic diverticulosis without acute diverticulitis. No p elvic free fluid. Visualized portions of the urinary bladder appear intact. Reproductive organs unrem arkable as imaged. Scattered atherosclerotic calcifications. IMPRESSION: 1. Comminuted fractures of the left inferior and superior pubic rami. 2. Left sacral alar fracture without diastases of the left sacroiliac joint. 3. Moderate left greater than right bilateral femoroacetabular joint osteoarthrosis without definite fracture visualized. Radiographic finding likely correlates with prominent marginal osteophytes at th e femoral head neck junction on the left. If there is persistent high clinical concern for occult fem oral neck fracture given presence of osteopenia and degenerative change, consider limited MRI to furt her assess. 4. Edematous left iliopsoas muscle compatible with contusion. No definite hematoma or suggestion of e xtravasation visualized. No pelvic free fluid seen. 5. Colonic diverticulosis without acute diverticulitis. 6. Anterolisthesis of L4 on L5 compatible with sequela of spondylosis. Reviewed by: Santhosh Garcia MD on 05/23/2020 11:55 AM [place] Approved by: Santhosh Garcia MD on 05/23/2020 11:55 AM [facility] Station ID: [id number]
[2020-05-23] MEDS ORDERED: ceFAZolin 1 GM in SODIUM CHLORIDE 0.9% MINIBAG 100 ML IV SCH (13:00)
[2020-05-23 13:08] LABS: C. PNEUMONIAE- RESP PCR PANEL NOT DETECTED
[2020-05-23] MEDS: SODIUM CHLORIDE 0.9% 1,000 ML IV SCH (14:21)
[2020-05-23] MEDS: HYDROmorphone 1 MG/ML CARPUJECT IVP PRN ×2 (14:23→17:37)
[2020-05-23] MEDS: HYDROcod/ACETAM 10 MG/325 MG TABLET PO PRN ×2 (16:13→20:30)
[2020-05-23] MEDS: INSULIN REGULAR HUMAN 300 UNIT/3 ML VIAL SUBQ SCH (17:38)
[2020-05-23] MEDS: SODIUM CHLORIDE FLUSH 0.9% 10 ML SYRINGE IVP SCH (17:40)
[2020-05-24] MEDS: HYDROmorphone 1 MG/ML CARPUJECT IVP PRN ×4 (00:57→19:09)
[2020-05-24] MEDS: INSULIN REGULAR HUMAN 300 UNIT/3 ML VIAL SUBQ SCH ×4 (01:11→17:40)
[2020-05-24] MEDS: SODIUM CHLORIDE FLUSH 0.9% 10 ML SYRINGE IVP SCH ×3 (03:30→17:41)
[2020-05-24] MEDS: SODIUM CHLORIDE 0.9% 1,000 ML IV SCH ×2 (03:49→16:01)
[2020-05-24] MEDS: HYDROcod/ACETAM 10 MG/325 MG TABLET PO PRN ×4 (04:01→17:36)
[2020-05-24 06:13] LABS: BASOPHILS % (AUTO) 0.1 %; EOSINOPHILS # (AUTO) 0.2 10^3/uL (0.0-0.7); EOSINOPHILS % (AUTO) 2.2 %; HGB - HEMOGLOBIN 9.3 g/dL (12.0-16.0); LYMPHOCYTES # (AUTO) 1.5 10^3/uL (1.5-3.5); LYMPHOCYTES % (AUTO) 22.4 %; MEAN CORPUSCULAR HGB CONC 32.4 g/dL (32.0-36.0); MEAN CORPUSCULAR VOLUME 95.7 fL (81.0-99.0); MEAN PLATELET VOLUME 9.3 fL (7.9-10.8); MONOCYTES # (AUTO) 0.8 10^3/uL (0.0-1.0); MONOCYTES % (AUTO) 11.2 %; NEUTROPHILS # (AUTO) 4.3 10^3/uL (1.5-6.6); NEUTROPHILS % (AUTO) 63.5 %; PLT - PLATELET COUNT 168 10^3/uL (130-450); RED CELL DISTRIBUTION WIDTH 13.5 % (12.0-15.0); WHITE BLOOD COUNT 6.8 x10^3/uL (4.8-10.8)
[2020-05-24] MEDS: PANTOPRAZOLE 40 MG VIAL IVP SCH (06:14)
[2020-05-24] MEDS: SODIUM CHLORIDE FLUSH 0.9% 10 ML SYRINGE IVP PRN ×2 (06:15→06:31)
[2020-05-24 06:24] LABS: CALCIUM 7.9 mg/dL (8.5-10.3); CREATININE 0.7 mg/dL (0.4-1.0)
[2020-05-24] MEDS ORDERED: ceFAZolin 1 GM VIAL IVP SCH (07:15)
[2020-05-24] MEDS ORDERED: polyethylene glycoL 3350 17 GM PACKET PO SCH (09:00)
[2020-05-24] MEDS ORDERED: LORazepam 0.5 MG TABLET PO PRN (12:48)
[2020-05-24] MEDS ORDERED: ASPIRIN EC 81 MG TABLET PO SCH (13:00)
[2020-05-24] MEDS: METOPROLOL SUCCINATE 25 MG TABLET PO SCH ×2 (15:16→20:44)
--- NOTE | 2020-05-24 17:21 | PROVIDER PROGRESS NOTE ---
Assessment/Plan - Problem List (1) Closed left hip fracture Assessment/Plan: Surgery was initially planned for today however due to th in the [facility] region last night 05/23/2020 surgeries on standby until power returns. Patient is currently medically optimized for surgery. Dr. Erickson has been consulted. We will continue to manage patient's pain with Now, [place] and oral Dilaudid as needed (2) Diabetes mellitus Qualifiers: Diabetes mellitus type: type 2 Assessment/Plan: Metformin held. Patient is on sliding scale insulin and Accu-Cheks. Carb controlled diet ordered. Gabapentin 300 mg p.o. twice daily ordered for diabetic neuropathy. (3) Hypertension Assessment/Plan: On metoprolol succinate 25 mg p.o. twice daily and diltiazem. (4) Hyperlipidemia Assessment/Plan: On atorvastatin 20 mg p.o. every afternoon (5) Restless leg syndrome Assessment/Plan: On Mirapex 0.375 mg p.o. every afternoon - Current Meds Current Meds: Current Medications Generic Name Dose Route Start Last Admin Trade Name Freq PRN Reason Stop Dose Admin Hydrocodone Bitart/Acetaminophen 1 tab 05/23/20 11:16 05/24/20 13:57 Hydrocod/Acetam 10 Mg/325 Mg Tablet PO 1 tab Q4HR PRN Administration Pain 8 to 10 Aspirin 81 mg 05/24/20 13:00 05/24/20 13:57 Aspirin Ec 81 Mg Tablet PO 81 mg DAILY STACY Administration Hydromorphone HCl 1 mg 05/23/20 13:51 05/24/20 12:31 Hydromorphone 1 Mg/Ml Carpuject IVP 1 mg Q3H PRN Administration PAIN Sodium Chloride 1,000 mls @ 75 mls/hr 05/23/20 12:00 05/24/20 16:01 Normal Saline 0.9% IV 75 mls/hr .[id number] STACY Administration Insulin Human Regular 1 - 5 unit 05/23/20 18:00 05/24/20 06:24 Insulin Regular Human 300 Unit/3 Ml Vial SUBQ 1 unit Q6HR STACY Administration Protocol Lorazepam 0.5 mg 05/24/20 12:48 05/24/20 13:57 Lorazepam 0.5 Mg Tablet PO 0.5 mg DAILY PRN Administration Cramp Metoprolol Succinate 25 mg 05/24/20 13:00 05/24/20 15:16 Metoprolol Succinate 25 Mg Tablet PO 25 mg BID STACY Administration Pantoprazole Sodium 40 mg 05/24/20 07:00 05/24/20 06:14 Pantoprazole 40 Mg Vial IVP 40 mg QDAC STACY Administration Sodium Chloride 10 ml 05/23/20 11:16 05/24/20 06:31 Sodium Chloride Flush 0.9% 10 Ml Syringe IVP 10 ml PRN PRN Administration NEEDED PER PROVIDER ORDERS Sodium Chloride 10 ml 05/23/20 17:00 05/24/20 03:30 Sodium Chloride Flush 0.9% 10 Ml Syringe IVP Not Given 0100,0900,1700 STACY - Lab Result Fish Bone Diagrams: 05/24/20 05:40 05/24/20 05:40 - Additional Planning My Orders: My Active Orders 05/23/20 17:00 Sodium Chloride Flush 0.9% [Normal Saline Flush 0.9%] 10 ml IVP 0100,0900,1700 05/23/20 18:00 Insulin Regular Human [Humulin R] 1 - 5 unit SUBQ Q6HR 05/24/20 07:00 Pantoprazole [Protonix] 40 mg IVP QDAC 05/24/20 09:00 polyethylene glycoL 3350 [Miralax] 17 gm PO DAILY 05/24/20 12:48 LORazepam [Ativan] 0.5 mg PO DAILY PRN 05/24/20 13:00 Aspirin EC [Ecotrin] 81 mg PO DAILY Metoprolol Succinate [Toprol Xl] 25 mg PO BID 05/24/20 21:00 Atorvastatin [Lipitor] 20 mg PO QPM Gabapentin [Neurontin] 300 mg PO BID Pramipexole [Mirapex] 0.375 mg PO QPM diltiaZEM [Cardizem] 30 mg PO QPM 05/25/20 05:00 BMP - BASIC METABOLIC PANEL [CHEM] DAILYLAB CBC - COMP BLD CT W/AUTO DIFF [HEME] DAILYLAB 05/26/20 05:00 BMP - BASIC METABOLIC PANEL [CHEM] DAILYLAB CBC - COMP BLD CT W/AUTO DIFF [HEME] DAILYLAB 05/27/20 05:00 BMP - BASIC METABOLIC PANEL [CHEM] DAILYLAB CBC - COMP BLD CT W/AUTO DIFF [HEME] DAILYLAB 05/28/20 05:00 BMP - BASIC METABOLIC PANEL [CHEM] DAILYLAB CBC - COMP BLD CT W/AUTO DIFF [HEME] DAILYLAB Subjective - Subjective Patient Reports: Other (Patient was tearful at the time of my exam. She rated her pain 8-9 out of 10 scale. However she had not requested for as needed pain medication She expressed frustration because she felt no plan had been related to her regarding her surgery.) Objective Vital Signs: Vital Signs - 24 hr 05/23/20 05/24/20 05/24/20 21:00 01:00 05:00 Temperature 36.6 C 37.1 C Heart Rate [ 83 86 91 Brachial] Respiratory 20 18 18 Rate Blood Pressure 117/67 112/68 122/70 [Right Brachial artery] O2 Saturation 93 96 98 05/24/20 07:43 Temperature 37.0 C Heart Rate [ 97 Brachial] Respiratory 19 Rate Blood Pressure 105/56 L [Right Brachial artery] O2 Saturation 92 Oxygen O2 Source Nasal cannula I&O (Last 24 Hrs): Intake and Output Totals x24h 05/22/20 05/23/20 05/24/20 23:59 23:59 23:59 Intake Total 985 1470 Output Total 25 Balance 985 1445 General: Alert, Oriented x3, Moderate distress, Severe distress, Other (Tearful) HEENT: PERRLA, EOMI Neck: Supple, No JVD Neuro: Alert, Oriented Times 3 Cardiovascular: Regular rate, Normal S1, Normal S2 Respiratory: Chest non-tender, No respiratory distress, Breath sounds nml Abdomen: Normal bowel sounds, Soft, No tenderness Extremities: No clubbing, No cyanosis, No edema Skin: No rashes - Results Results: Laboratory Results WBC 6.8 x10^3/uL (4.8-10.8) 05/24/20 05:40 RBC 3.00 10^6/uL (4.20-5.40) L 05/24/20 05:40 Hgb 9.3 g/dL (12.0-16.0) L 05/24/20 05:40 Hct 28.7 % (37.0-47.0) L 05/24/20 05:40 MCV 95.7 fL (81.0-99.0) 05/24/20 05:40 MCH 31.0 pg (27.0-31.0) 05/24/20 05:40 MCHC 32.4 g/dL (32.0-36.0) 05/24/20 05:40 RDW 13.5 % (12.0-15.0) 05/24/20 05:40 Plt Count 168 10^3/uL (130-450) 05/24/20 05:40 MPV 9.3 fL (7.9-10.8) 05/24/20 05:40 Neut # (Auto) 4.3 10^3/uL (1.5-6.6) 05/24/20 05:40 Lymph # (Auto) 1.5 10^3/uL (1.5-3.5) 05/24/20 05:40 [place] # (Auto) 0.8 10^3/uL (0.0-1.0) 05/24/20 05:40 Eos # (Auto) 0.2 10^3/uL (0.0-0.7) 05/24/20 05:40 Baso # (Auto) 0.0 10^3/uL (0.0-0.1) 05/24/20 05:40 Absolute Nucleated RBC 0.00 x10^3/uL 05/24/20 05:40 Nucleated RBC % 0.0 /100WBC 05/24/20 05:40 PT 11.7 secs (9.9-12.6) 05/23/20 10:29 INR 1.0 (0.8-1.2) 05/23/20 10:29 Sodium 127 mmol/L (135-145) L 05/24/20 05:40 Potassium 4.2 mmol/L (3.5-5.0) 05/24/20 05:40 Chloride 94 mmol/L (101-111) L 05/24/20 05:40 Carbon Dioxide 23 mmol/L (21-32) 05/24/20 05:40 Anion Gap 10.0 (6-13) 05/24/20 05:40 BUN 10 mg/dL (6-20) 05/24/20 05:40 Creatinine 0.7 mg/dL (0.4-1.0) 05/24/20 05:40 Estimated GFR (MDRD) 83 (>89) L 05/24/20 05:40 Glucose 145 mg/dL (70-100) H 05/24/20 05:40 POC Whole Bld Glucose 114 mg/dL (70 - 100) H 05/24/20 17:00 Calcium 7.9 mg/dL (8.5-10.3) L 05/24/20 05:40 Total Bilirubin 0.6 mg/dL (0.2-1.0) 05/23/20 10:29 AST 21 IU/L (10-42) 05/23/20 10:29 ALT 13 IU/L (10-60) 05/23/20 10:29 Alkaline Phosphatase 59 IU/L (42-121) 05/23/20 10:29 Total Protein 6.5 g/dL (6.7-8.2) L 05/23/20 10:29 Albumin 3.8 g/dL (3.2-5.5) 05/23/20 10:29 Globulin 2.7 g/dL (2.1-4.2) 05/23/20 10:29 Albumin/Globulin Ratio 1.4 (1.0-2.2) 05/23/20 10:29 Lipase 29 U/L (22-51) 05/23/20 10:29 Nasal Adenovirus (PCR) NOT DETECTED 05/23/20 12:09 Nasal B. parapertussis DNA (PCR) NOT DETECTED 05/23/20 12:09 Nasal Coronavir 229E PCR NOT DETECTED 05/23/20 12:09 Nasal Coronavir HKU1 PCR NOT DETECTED 05/23/20 12:09 Nasal Coronavir NL63 PCR NOT DETECTED 05/23/20 12:09 Nasal Coronavir OC43 PCR NOT DETECTED 05/23/20 12:09 Nasal Enterovir/Rhinovir PCR NOT DETECTED 05/23/20 12:09 Nasal Influenza B PCR NOT DETECTED 05/23/20 12:09 Nasal Influenza A PCR NOT DETECTED 05/23/20 12:09 Nasal Parainfluen 1 PCR NOT DETECTED 05/23/20 12:09 Nasal Parainfluen 2 PCR NOT DETECTED 05/23/20 12:09 Nasal Parainfluen 3 PCR NOT DETECTED 05/23/20 12:09 Nasal Parainfluen 4 PCR NOT DETECTED 05/23/20 12:09 Nasal RSV (PCR) NOT DETECTED 05/23/20 12:09 Nasal B.pertussis DNA PCR NOT DETECTED 05/23/20 12:09 Nasal C.pneumoniae (PCR) NOT DETECTED 05/23/20 12:09 [place] Human Metapneumo PCR NOT DETECTED 05/23/20 12:09 Nasal M.pneumoniae (PCR) NOT DETECTED 05/23/20 12:09 Nasal SARS-CoV-2 (PCR) NOT DETECTED 05/23/20 12:09 Blood Type O POSITIVE 05/23/20 10:29 Antibody Screen NEGATIVE 05/23/20 10:29 - Procedures Procedures: Procedures DESTRUCT-KNEE LESION NEC (12/13/13) EXCISION OF DESCENDING COLON, ENDO (03/02/20) EXCISION OF TRANSVERSE COLON, ENDO (03/02/20) LOC EXC LES TIBIA/FIBULA (12/13/13) TOTAL KNEE REPLACEMENT (12/28/12) ABX Reporting Has patient been on IV antibiotics over the past 48 hours?: No
--- NOTE | 2020-05-24 18:37 | PHARMACY PROGRESS NOTE ---
- Best Possible Medication History Admit Date and Time: 05/23/20 1116 Processed by: Pharmacy Medication History completed: Yes Patient Interview: Completed Secondary Source(s): Pharmacy records (M) As the person ultimately responsible for medication therapy, providers are able to order a medication from an existing home medication list in [facility] via the "Reconcile Routine" prior to Confirmation of that medication by manager product support. Such practice is discouraged except when the physician, in their clinical judgment, deems that a medical need exists for a medication without regard to previous use.
[2020-05-24] MEDS: ATORVASTATIN 10 MG TABLET PO SCH (20:43)
[2020-05-24] MEDS: GABAPENTIN 300 MG CAPSULE PO SCH (20:43)
[2020-05-24] MEDS: PRAMIPEXOLE 0.25 MG TABLET PO SCH (20:49)
[2020-05-24] MEDS ORDERED: BUPIVACAINE 0.5%-EPI 1:200000 PF 30 ML VIAL ONE (22:04)
[2020-05-24] MEDS ORDERED: MIDAZOLAM 2 MG/2 ML VIAL ONE (22:20)
[2020-05-24] MEDS ORDERED: SODIUM CHLORIDE FLUSH 0.9% 10 ML SYRINGE IVP PRN (22:26)
[2020-05-24] MEDS ORDERED: ACETAMINOPHEN 325 MG TABLET PO PRN (22:26)
[2020-05-24] MEDS ORDERED: SENNA 8.6 MG TABLET PO PRN (22:26)
[2020-05-24] MEDS ORDERED: MORPHINE 2 MG/ML CARPUJECT IVP PRN ×2 (22:26→23:32)
[2020-05-24] MEDS ORDERED: PROCHLORPERAZINE 10 MG/2 ML VIAL IVP PRN (22:26)
[2020-05-24] MEDS ORDERED: ONDANSETRON 4 MG/2 ML VIAL IVP PRN ×2 (22:26→23:32)
--- NOTE | 2020-05-24 22:26 | PROVIDER PROGRESS NOTE ---
Assessment/Plan - Problem List (1) Closed left hip fracture Qualifiers: Encounter type: initial encounter Qualified Code(s): S72.002A - Fracture of unspecified part of neck of left femur, initial encounter for closed fracture - Current Meds Current Meds: Current Medications Generic Name Dose Route Start Last Admin Trade Name Freq PRN Reason Stop Dose Admin Hydrocodone Bitart/Acetaminophen 1 tab 05/23/20 11:16 05/24/20 17:36 Hydrocod/Acetam 10 Mg/325 Mg Tablet PO 1 tab Q4HR PRN Administration Pain 8 to 10 Aspirin 81 mg 05/24/20 13:00 05/24/20 13:57 Aspirin Ec 81 Mg Tablet PO 81 mg DAILY STACY Administration Atorvastatin Calcium 20 mg 05/24/20 21:00 05/24/20 20:43 Atorvastatin 10 Mg Tablet PO 20 mg QPM STACY Administration Diltiazem HCl 30 mg 05/24/20 21:00 05/24/20 20:43 Diltiazem 60 Mg Tablet PO 30 mg QPM STACY Administration Gabapentin 300 mg 05/24/20 21:00 05/24/20 20:43 Gabapentin 300 Mg Capsule PO 300 mg BID STACY Administration Hydromorphone HCl 1 mg 05/23/20 13:51 05/24/20 19:09 Hydromorphone 1 Mg/Ml Carpuject IVP 1 mg Q3H PRN Administration PAIN Sodium Chloride 1,000 mls @ 75 mls/hr 05/23/20 12:00 05/24/20 16:01 Normal Saline 0.9% IV 75 mls/hr .[id number] STACY Administration Insulin Human Regular 1 - 5 unit 05/23/20 18:00 05/24/20 17:40 Insulin Regular Human 300 Unit/3 Ml Vial SUBQ Not Given Q6HR STACY Protocol Lorazepam 0.5 mg 05/24/20 12:48 05/24/20 13:57 Lorazepam 0.5 Mg Tablet PO 0.5 mg DAILY PRN Administration Cramp Metoprolol Succinate 25 mg 05/24/20 13:00 05/24/20 20:44 Metoprolol Succinate 25 Mg Tablet PO 25 mg BID STACY Administration Pantoprazole Sodium 40 mg 05/24/20 07:00 05/24/20 06:14 Pantoprazole 40 Mg Vial IVP 40 mg QDAC STACY Administration Pramipexole Dihydrochloride 0.375 mg 05/24/20 21:00 05/24/20 20:49 Pramipexole 0.25 Mg Tablet PO 0.375 mg QPM STACY Administration Sodium Chloride 10 ml 05/23/20 11:16 05/24/20 06:31 Sodium Chloride Flush 0.9% 10 Ml Syringe IVP 10 ml PRN PRN Administration NEEDED PER PROVIDER ORDERS Sodium Chloride 10 ml 05/23/20 17:00 05/24/20 17:41 Sodium Chloride Flush 0.9% 10 Ml Syringe IVP 10 ml 0100,0900,1700 STACY Administration - Lab Result Fish Bone Diagrams: 05/24/20 05:40 05/24/20 05:40 - Other Other Results/Comments: No interval changes in condition or exam.Due to power outage at hospital surgery was delayed from morning to evening, once power was restored. - Additional Planning My Orders: My Active Orders 05/24/20 10:16 OR C-Arm Procedure [FL] Routine 05/24/20 Dinner DIET [Clear Liquid Diet] [DIET] Objective Vital Signs: Vital Signs - 24 hr 05/24/20 05/24/20 05/24/20 01:00 05:00 07:43 Temperature 37.1 C 37.0 C Heart Rate [ 86 91 97 Brachial] Respiratory 18 18 19 Rate Blood Pressure Blood Pressure [Left Brachial artery] Blood Pressure 112/68 122/70 105/56 L [Right Brachial artery] O2 Saturation 96 98 92 05/24/20 05/24/20 05/24/20 15:40 17:32 20:31 Temperature 37.6 C 37.3 C Heart Rate [ 106 H 105 H Brachial] Respiratory 20 19 Rate Blood Pressure Blood Pressure 125/81 H 130/59 L [Left Brachial artery] Blood Pressure 114/58 L [Right Brachial artery] O2 Saturation 91 L 93 92 05/24/20 20:43 Temperature Heart Rate [ Brachial] Respiratory Rate Blood Pressure 130/59 L Blood Pressure [Left Brachial artery] Blood Pressure [Right Brachial artery] O2 Saturation Oxygen O2 Source Nasal cannula I&O (Last 24 Hrs): Intake and Output Totals x24h 05/22/20 05/23/20 05/24/20 23:59 23:59 23:59 Intake Total 985 2390 Output Total 25 Balance 985 2365 - Results Results: Laboratory Results WBC 6.8 x10^3/uL (4.8-10.8) 05/24/20 05:40 RBC 3.00 10^6/uL (4.20-5.40) L 05/24/20 05:40 Hgb 9.3 g/dL (12.0-16.0) L 05/24/20 05:40 Hct 28.7 % (37.0-47.0) L 05/24/20 05:40 MCV 95.7 fL (81.0-99.0) 05/24/20 05:40 MCH 31.0 pg (27.0-31.0) 05/24/20 05:40 MCHC 32.4 g/dL (32.0-36.0) 05/24/20 05:40 RDW 13.5 % (12.0-15.0) 05/24/20 05:40 Plt Count 168 10^3/uL (130-450) 05/24/20 05:40 MPV 9.3 fL (7.9-10.8) 05/24/20 05:40 Neut # (Auto) 4.3 10^3/uL (1.5-6.6) 05/24/20 05:40 Lymph # (Auto) 1.5 10^3/uL (1.5-3.5) 05/24/20 05:40 Will # (Auto) 0.8 10^3/uL (0.0-1.0) 05/24/20 05:40 Eos # (Auto) 0.2 10^3/uL (0.0-0.7) 05/24/20 05:40 Baso # (Auto) 0.0 10^3/uL (0.0-0.1) 05/24/20 05:40 Absolute Nucleated RBC 0.00 x10^3/uL 05/24/20 05:40 Nucleated RBC % 0.0 /100WBC 05/24/20 05:40 PT 11.7 secs (9.9-12.6) 05/23/20 10:29 INR 1.0 (0.8-1.2) 05/23/20 10:29 Sodium 127 mmol/L (135-145) L 05/24/20 05:40 Potassium 4.2 mmol/L (3.5-5.0) 05/24/20 05:40 Chloride 94 mmol/L (101-111) L 05/24/20 05:40 Carbon Dioxide 23 mmol/L (21-32) 05/24/20 05:40 Anion Gap 10.0 (6-13) 05/24/20 05:40 BUN 10 mg/dL (6-20) 05/24/20 05:40 Creatinine 0.7 mg/dL (0.4-1.0) 05/24/20 05:40 Estimated GFR (MDRD) 83 (>89) L 05/24/20 05:40 Glucose 145 mg/dL (70-100) H 05/24/20 05:40 POC Whole Bld Glucose 114 mg/dL (70 - 100) H 05/24/20 17:00 Calcium 7.9 mg/dL (8.5-10.3) L 05/24/20 05:40 Total Bilirubin 0.6 mg/dL (0.2-1.0) 05/23/20 10:29 AST 21 IU/L (10-42) 05/23/20 10:29 ALT 13 IU/L (10-60) 05/23/20 10:29 Alkaline Phosphatase 59 IU/L (42-121) 05/23/20 10:29 Total Protein 6.5 g/dL (6.7-8.2) L 05/23/20 10:29 Albumin 3.8 g/dL (3.2-5.5) 05/23/20 10:29 Globulin 2.7 g/dL (2.1-4.2) 05/23/20 10:29 Albumin/Globulin Ratio 1.4 (1.0-2.2) 05/23/20 10:29 Lipase 29 U/L (22-51) 05/23/20 10:29 Nasal Adenovirus (PCR) NOT DETECTED 05/23/20 12:09 Nasal B. parapertussis DNA (PCR) NOT DETECTED 05/23/20 12:09 Nasal Coronavir 229E PCR NOT DETECTED 05/23/20 12:09 Nasal Coronavir HKU1 PCR NOT DETECTED 05/23/20 12:09 Nasal Coronavir NL63 PCR NOT DETECTED 05/23/20 12:09 Nasal Coronavir OC43 PCR NOT DETECTED 05/23/20 12:09 Nasal Enterovir/Rhinovir PCR NOT DETECTED 05/23/20 12:09 Nasal Influenza B PCR NOT DETECTED 05/23/20 12:09 Nasal Influenza A PCR NOT DETECTED 05/23/20 12:09 Nasal Parainfluen 1 PCR NOT DETECTED 05/23/20 12:09 Nasal Parainfluen 2 PCR NOT DETECTED 05/23/20 12:09 Nasal Parainfluen 3 PCR NOT DETECTED 05/23/20 12:09 Nasal Parainfluen 4 PCR NOT DETECTED 05/23/20 12:09 Nasal RSV (PCR) NOT DETECTED 05/23/20 12:09 Nasal B.pertussis DNA PCR NOT DETECTED 05/23/20 12:09 Nasal C.pneumoniae (PCR) NOT DETECTED 05/23/20 12:09 [place] Human Metapneumo PCR NOT DETECTED 05/23/20 12:09 Nasal M.pneumoniae (PCR) NOT DETECTED 05/23/20 12:09 Nasal SARS-CoV-2 (PCR) NOT DETECTED 05/23/20 12:09 Blood Type O POSITIVE 05/23/20 10:29 Antibody Screen NEGATIVE 05/23/20 10:29 - Procedures Procedures: Procedures DESTRUCT-KNEE LESION NEC (12/13/13) EXCISION OF DESCENDING COLON, ENDO (03/02/20) EXCISION OF TRANSVERSE COLON, ENDO (03/02/20) LOC EXC LES TIBIA/FIBULA (12/13/13) TOTAL KNEE REPLACEMENT (12/28/12) ABX Reporting Has patient been on IV antibiotics over the past 48 hours?: No
[2020-05-24] MEDS ORDERED: ePHEDrine 50 MG/ML VIAL IVP ONE (22:54)
[2020-05-24] MEDS ORDERED: PHENYLEPHRINE 10 MG/ML VIAL ONE (22:55)
[2020-05-24] MEDS ORDERED: BUPIVACAINE 0.5%-EPI 1:200000 PF 30 ML VIAL SUBQ ONE ×2 (23:04)
[2020-05-24] MEDS ORDERED: ONDANSETRON 4 MG/2 ML VIAL ONE (23:26)
[2020-05-24] MEDS ORDERED: fentaNYL 100 MCG/2 ML VIAL IVP PRN (23:32)
[2020-05-24] MEDS ORDERED: ATROPINE ABBOJECT 1 MG/10 ML SYRINGE IVP PRN (23:32)
[2020-05-24] MEDS ORDERED: ePHEDrine 50 MG/ML VIAL IVP PRN (23:32)
[2020-05-24] MEDS ORDERED: NALOXONE 0.4 MG/ML VIAL IVP PRN (23:32)
[2020-05-24] MEDS ORDERED: HYDROmorphone 0.5 MG/0.5 ML SYRINGE IVP PRN (23:32)
[2020-05-24] MEDS ORDERED: LACTATED RINGERS 1,000 ML IV SCH (23:45)
[2020-05-24] MEDS ORDERED: LACTATED RINGERS 1,000 ML IV ONE (23:46)
--- NOTE | 2020-05-24 23:53 | OPERATIVE REPORT ---
Operative Report - General Admit Date: 05/23/20 Procedure Date: 05/24/20 Planned Procedure: Multiple cannulated screw fixation of left subcapital hip fracture Pre-Op Diagnosis: Minimally displaced left subcapital hip fracture Procedure Performed: Multiple cannulated screw fixation of left hip fracture Post Op Diagnosis: Same - Procedure Note Primary Surgeon: Gurwinder Erickson MD Anesthesia Provider: Valencia Stanton CRNA Anesthesia Technique: Spinal IV Fluids (mL): 800 Estimated Blood Loss (mL): 100 Complications: None
--- NOTE | 2020-05-25 00:09 | ANESTHESIA ---
Pre-Anesthesia VS, & Labs - Diagnosis L hip fracture - Procedure L hip IM nailing Vital Signs: Temp Pulse Resp BP Pulse Ox 37.3 C 105 H 19 130/59 L 92 05/24/20 20:31 05/24/20 20:31 05/24/20 20:31 05/24/20 20:43 05/24/20 20:31 Height: 5 ft 6 in Weight (kg): 74.5 kg Body Mass Index: 26.5 BMI Classification: Overweight - NPO Other (clear liquids until 190) Last Fluid Intake: 1899 Last Food Intake: greater than 12 hours - Is Patient ?: No - Lab Results Current Lab Results: Laboratory Tests 05/24/20 17:00: POC Whole Bld Glucose 114 H 05/24/20 11:47: POC Whole Bld Glucose 119 H 05/24/20 08:22: POC Whole Bld Glucose 108 H 05/24/20 05:40: Sodium 127 L, Potassium 4.2, Chloride 94 L, Carbon Dioxide 23, Anion Gap 10.0, BUN 10, Creatinine 0.7, Estimated GFR (MDRD) 83 L, Glucose 145 H , Calcium 7.9 L 05/24/20 05:40: WBC 6.8, RBC 3.00 L, Hgb 9.3 L, Hct 28.7 L, MCV 95.7, MCH 31.0, MCHC 32.4, RDW 13.5, Plt Count 168, MPV 9.3, Neut # (Auto) 4.3, Lymph # (Auto) 1.5, [place] # (Auto) 0.8, Eos # (Auto) 0.2, Baso # (Auto) 0.0, Absolute Nucleated RBC 0.00, Nucleated RBC % 0.0 05/23/20 20:23: POC Whole Bld Glucose 128 H 05/23/20 16:52: POC Whole Bld Glucose 119 H 05/23/20 10:29: Sodium 129 L, Potassium 4.3, Chloride 95 L, Carbon Dioxide 24, Anion Gap 10.0, BUN 10, Creatinine 0.9, Estimated GFR (MDRD) 62 L, Glucose 149 H , Calcium 8.9, Total Bilirubin 0.6, AST 21, ALT 13, Alkaline Phosphatase 59, Total Protein 6.5 L, Albumin 3.8, Globulin 2.7, Albumin/Globulin Ratio 1.4, Lipase 29 05/23/20 10:29: PT 11.7, INR 1.0 05/23/20 10:29: WBC 14.8 H, RBC 3.78 L, Hgb 11.6 L, Hct 36.0 L, MCV 95.2, MCH 30.7, MCHC 32.2, RDW 13.3, Plt Count 230, MPV 9.6, Neut # (Auto) 12.3 H, Lymph # (Auto) 1.3 L, [place] # (Auto) 1.0, Eos # (Auto) 0.1, Baso # (Auto) 0.0, Absolute Nucleated RBC 0.00, Nucleated RBC % 0.0 05/23/20 10:29: Blood Type O POSITIVE, Antibody Screen NEGATIVE Fish Bones: 05/24/20 05:40 05/24/20 05:40 Home Medications and Allergies Active Medications Acetaminophen (Acetaminophen 325 Mg Tablet) 650 mg PO Q4HR PRN PRN Reason: Pain 1 to 4 Acetaminophen (Acetaminophen 325 Mg Tablet) 650 - 975 mg PO Q4HR PRN PRN Reason: PAIN Hydrocodone Bitart/Acetaminophen (Hydrocod/Acetam 10 Mg/325 Mg Tablet) 1 tab PO Q4HR PRN PRN Reason: Pain 8 to 10 Last Admin: 05/24/20 17:36 Dose: 1 tab Documented by: Aspirin (Aspirin Ec 81 Mg Tablet) 81 mg PO DAILY [facility] Last Admin: 05/24/20 13:57 Dose: 81 mg Documented by: Aspirin (Aspirin 325 Mg Tablet) 325 mg PO BIDWM [facility] Atorvastatin Calcium (Atorvastatin 10 Mg Tablet) 20 mg PO QPM [facility] Last Admin: 05/24/20 20:43 Dose: 20 mg Documented by: Atropine Sulfate (Atropine Abboject 1 Mg/10 Ml Syringe) 0.5 mg IVP Q5M PRN PRN Reason: Bradycardia Stop: 05/25/20 23:35 Diltiazem HCl (Diltiazem 60 Mg Tablet) 30 mg PO QPM [facility] Last Admin: 05/24/20 20:43 Dose: 30 mg Documented by: Docusate Sodium (Docusate Sodium 100 Mg Capsule) 100 mg PO BID PRN PRN Reason: Constipation Ephedrine Sulfate (Ephedrine 50 Mg/Ml Vial) 10 mg IVP Q5M PRN PRN Reason: HYPOTENSION Stop: 05/25/20 23:35 Fentanyl (Fentanyl 100 Mcg/2 Ml Vial) 25 - 50 mcg IVP Q5M PRN PRN Reason: BREAKTHROUGH PAIN (2nd Choice) Stop: 05/25/20 23:35 Gabapentin (Gabapentin 300 Mg Capsule) 300 mg PO BID [facility] Last Admin: 05/24/20 20:43 Dose: 300 mg Documented by: Hydromorphone HCl (Hydromorphone 1 Mg/Ml Carpuject) 1 mg IVP Q3H PRN PRN Reason: PAIN Last Admin: 05/24/20 19:09 Dose: 1 mg Documented by: Hydromorphone HCl (Hydromorphone 0.5 Mg/0.5 Ml Syringe) 0.2 - 0.6 mg IVP Q5M PRN PRN Reason: PAIN (First Choice) Stop: 05/25/20 23:35 Sodium Chloride (Normal Saline 0.9%) 1,000 mls @ 75 mls/hr IV .[id number] [facility] Last Admin: 05/24/20 16:01 Dose: 75 mls/hr Documented by: Cefazolin Sodium/Dextrose (Ancef 2 Gm/50 Ml) 2 gm in 50 mls @ 100 mls/hr IV Q8HR [facility] Stop: 05/25/20 14:29 Sodium Chloride (Normal Saline 0.9%) 1,000 mls @ 100 mls/hr IV .Q10H [facility] Lactated Ringer's (Lr) 1,000 mls @ 100 mls/hr IV .Q10H [facility] Stop: 05/25/20 09:44 Insulin Human Regular (Insulin Regular Human 300 Unit/3 Ml Vial) 1 - 5 unit SUBQ Q6HR [facility]; Protocol Last Admin: 05/24/20 17:40 Dose: Not Given Documented by: Lorazepam (Lorazepam 0.5 Mg Tablet) 0.5 mg PO DAILY PRN PRN Reason: Cramp Last Admin: 05/24/20 13:57 Dose: 0.5 mg Documented by: Metoprolol Succinate (Metoprolol Succinate 25 Mg Tablet) 25 mg PO BID [facility] Last Admin: 05/24/20 20:44 Dose: 25 mg Documented by: Morphine Sulfate (Morphine 2 Mg/Ml Carpuject) 2 mg IVP Q2HR PRN PRN Reason: PAIN Morphine Sulfate (Morphine 2 Mg/Ml Carpuject) 2 - 4 mg IVP Q5M PRN PRN Reason: PAIN (3rd Choice) Stop: 05/25/20 23:35 Naloxone HCl (Naloxone 0.4 Mg/Ml Vial) 0.1 mg IVP Q2M PRN PRN Reason: RESP RATE <8 Stop: 05/25/20 23:35 Ondansetron HCl (Ondansetron 4 Mg/2 Ml Vial) 4 mg IVP Q6HR PRN PRN Reason: Nausea / Vomiting Ondansetron HCl (Ondansetron 4 Mg/2 Ml Vial) 4 mg IVP ONCE PRN PRN Reason: N/V (First Choice) Stop: 05/25/20 23:35 Oxycodone HCl (Oxycodone 5 Mg Tablet) 5 mg PO Q4HR PRN PRN Reason: PAIN Pantoprazole Sodium (Pantoprazole 40 Mg Vial) 40 mg IVP QDAC [facility] Last Admin: 05/24/20 06:14 Dose: 40 mg Documented by: Pramipexole Dihydrochloride (Pramipexole 0.25 Mg Tablet) 0.375 mg PO QPM [facility] Last Admin: 05/24/20 20:49 Dose: 0.375 mg Documented by: Prochlorperazine Edisylate (Prochlorperazine 10 Mg/2 Ml Vial) 10 mg IVP Q6HR PRN PRN Reason: Nausea / Vomiting Senna (Senna 8.6 Mg Tablet) 17.2 mg PO Q12H PRN PRN Reason: Constipation Sodium Chloride (Sodium Chloride Flush 0.9% 10 Ml Syringe) 10 ml IVP PRN PRN PRN Reason: NEEDED PER PROVIDER ORDERS Last Admin: 05/24/20 06:31 Dose: 10 ml Documented by: Sodium Chloride (Sodium Chloride Flush 0.9% 10 Ml Syringe) 10 ml IVP 0100,0900,1700 [facility] Last Admin: 05/24/20 17:41 Dose: 10 ml Documented by: Sodium Chloride (Sodium Chloride Flush 0.9% 10 Ml Syringe) 10 ml IVP 0100,0900 ,1700 [facility] Sodium Chloride (Sodium Chloride Flush 0.9% 10 Ml Syringe) 10 ml IVP PRN PRN PRN Reason: NEEDED PER PROVIDER ORDERS Aspirin [Aspir 81] 81 mg PO DAILY 12/22/12 Atorvastatin Calcium 20 mg PO QPM 12/22/12 Calcium Carbonate/Vitamin D3 [Calcium + Vitamin D Tablet] 1 each PO BID 12/22/12 Metformin HCl 1,000 mg PO BID 12/22/12 Pramipexole Di-HCl [Pramipexole Dihydrochloride] 0.375 mg PO QPM 12/22/12 diltiaZEM [Cardizem] 30 mg PO QPM 12/22/12 LORazepam [Lorazepam] 0.5 mg PO DAILY PRN 12/10/13 Gabapentin 300 mg PO BID 03/01/20 Metoprolol Succinate 25 mg PO BID 03/01/20 Albuterol Sulfate [Proair Hfa Inhaler] 1 - 2 puffs INH Q4H PRN 03/02/20 Iron,Carbonyl [Iron Chews] 1,565 mg PO DAILY 03/02/20 Loratadine 10 mg PO DAILY 03/02/20 Melatonin 5 mg PO DAILY 03/02/20 Allergies/Adverse Reactions: Allergies Allergy/AdvReac Type Severity Reaction Status Date / Time No Known Drug Allergies Allergy Verified 05/23/20 09:19 Anes History & Medical History - Anesthetic History Family history of Anesthesia Complications: Denies Family history of Malignant Hyperthermia: Denies - Medical History Cardiovascular: reports: Hypertension, High cholesterol Pulmonary: reports: Emphysema, Other Gastrointestinal: reports: Colon polyps Urinary: reports: None Neuro: reports: None Musculoskeletal: reports: Osteoarthritis, Osteoporosis, Osteopenia Endocrine/Autoimmune: reports: Type 2 diabetes Blood Disorders: reports: None Skin: reports: None Smoking Status: Former smoker - Surgical History General: Colonoscopy Eyes Ears Nose Throat (EENT): Tonsil/Adenoidectomy Orthopedic: Knee replacement, Carpal Tunnel surgery Exam Dental: WNL Mouth Openin Fingerbreadth Neck Mobility: Normal Mallampati classification: II Thyromental Distance: 4-6 cm Respiratory: Lungs clear Cardiovascular: Regular rate Abdomen: Normal bowel sounds Extremities: No clubbing, No cyanosis, No edema, Normal pulses, No tenderness/swelling Neurological: Normal gait, Normal speech, Strength at 5/5 X4 ext, Normal tone, Sensation intact, Cranial nerves 3-12 NL, Reflexes 2+ Mental/Cognitive Status: Alert/Oriented X3 Cognitive Status: Within normal limits Plan Anesthesia Type: Spinal Consent for Procedure(s) Verified and Reviewed: Yes Code Status: Attempt Resuscitation ASA classification: 2-Mild systemic disease Is this case an emergency?: No
[2020-05-25] MEDS: SODIUM CHLORIDE 0.9% 1,000 ML IV SCH ×4 (00:47→20:53)
[2020-05-25] MEDS: INSULIN REGULAR HUMAN 300 UNIT/3 ML VIAL SUBQ SCH ×2 (00:57→06:30)
--- NOTE | 2020-05-25 02:16 | OPERATIVE REPORT ---
DATE OF SERVICE: 05/24/2020 Physician: Aldo Erickson MD PREOPERATIVE DIAGNOSIS: Closed, nondisplaced left subcapital hip fracture. POSTOPERATIVE DIAGNOSIS: Closed, nondisplaced left subcapital hip fracture. PROCEDURE PERFORMED: Multiple cannulated screw fixation of left subcapital hip fracture. SURGEON: Aldo Erickson MD ANESTHESIA: Spinal. DESCRIPTION OF PROCEDURE: The patient was taken to the operating room on the evening of 05/24/2020 w here she was placed under spinal anesthetic without any complications. She was then repositioned sup ine and transferred over to the [place] fracture table. Her right unfractured extremity had her hip fle xed and widely abducted and held with a well leg diaz. Her fractured left extremity was then place d into axial traction and internally rotated about 10-15 degrees. Fluoroscopic views were then obtai celestine, showing the fracture remained essentially nondisplaced and we were able to visualize the proxima l femur and hip joint satisfactorily in both AP and lateral projections. We then prepped and draped the lateral aspect of the left hip in the usual fashion for our procedure. Making a 4-5 cm longitudinal skin incision laterally in the proximal thigh, we dissected through th e skin and subcutaneous tissues and the fascia carley down to the lateral aspect of the proximal femora l shaft. Fluoroscopic view determined where we would begin placing our threaded tip guidewires. Thi s was done under power so that we went through the proximal femoral neck and femoral head in an obliq ue fashion. We positioned the pins within about 2-3 mm of the subchondral bone. This was in both AP and lateral projection. We then were satisfied with the reduction of the fracture and the placement of our guide pins. The measuring guide was then determined and we determined that we would use thre e 9 mm length, 16 mm short-threaded 7.0 mm cannulated screws. Next, we used the cannulated drill to perforate the proximal femoral shaft and up through the femoral neck and into the femoral head. We u sed the inserted guide pins to assist in performing the drilling of the proximal femur with our teresa tothd drill. We then followed this with the selected cannulated screws. Fluoroscopic views in AP an d lateral projection showed the fracture to still be essentially nondisplaced. One of the screws on the lateral view was not quite to the subchondral bone, but on the AP view was within 2-3 mm of subch ondral bone, so we elected not to advance this any further. Satisfied with both the AP and lateral p rojections of the hip joint as far as the fracture reduction and placement of our hardware, we then r emoved our guide pins from within the screws and obtained permanent views of the hip. We then irriga inder the wound thoroughly with saline. We closed the fascia carley layer with one buried simple stitch of 0 Vicryl. Then, several buried simple stitches of 0 Vicryl used to close the subcutaneous tissues . Finally, skin manish used to approximate the skin edge. We then injected 9 mL of 0.5% Marcaine w ith epinephrine to provide incisional local anesthesia. We then dressed the wound with Xeroform gauz e, 4 x 4's, and a Tegaderm dressing. The patient transferred then off the fracture table onto her be d and taken to the recovery room in satisfactory condition. ESTIMATED BLOOD LOSS: 100 mL. REPLACEMENT: 800 mL of crystalloid. INTRAOPERATIVE COMPLICATIONS: None. PLAN: The patient will be begin physical therapy starting tomorrow, walker ambulating and weightbear ing as tolerated on this extremity. TD: 05/24/2020 23:53
[2020-05-25] MEDS: SODIUM CHLORIDE FLUSH 0.9% 10 ML SYRINGE IVP SCH ×6 (03:34→23:38)
[2020-05-25 05:07] LABS: BASOPHILS % (AUTO) 0.1 %; EOSINOPHILS # (AUTO) 0.2 10^3/uL (0.0-0.7); EOSINOPHILS % (AUTO) 2.2 %; HGB - HEMOGLOBIN 8.4 g/dL (12.0-16.0); LYMPHOCYTES % (AUTO) 13.2 %; MEAN CORPUSCULAR HEMOGLOBIN 30.3 pg (27.0-31.0); MEAN CORPUSCULAR HGB CONC 31.3 g/dL (32.0-36.0); MEAN CORPUSCULAR VOLUME 96.8 fL (81.0-99.0); MEAN PLATELET VOLUME 9.9 fL (7.9-10.8); MONOCYTES # (AUTO) 0.7 10^3/uL (0.0-1.0); MONOCYTES % (AUTO) 8.9 %; NEUTROPHILS # (AUTO) 5.7 10^3/uL (1.5-6.6); NEUTROPHILS % (AUTO) 74.9 %; PLT - PLATELET COUNT 149 10^3/uL (130-450); RED BLOOD COUNT 2.77 10^6/uL (4.20-5.40); RED CELL DISTRIBUTION WIDTH 13.4 % (12.0-15.0); WHITE BLOOD COUNT 7.7 x10^3/uL (4.8-10.8)
[2020-05-25 05:12] LABS: CALCIUM 7.7 mg/dL (8.5-10.3); CREATININE 0.7 mg/dL (0.4-1.0)
[2020-05-25] MEDS: oxyCODONE 5 MG TABLET PO PRN ×2 (05:47→11:13)
[2020-05-25] MEDS: ceFAZolin 2 GM/50 ML 2 GM/50 ML BAG IV SCH ×2 (05:47→14:02)
[2020-05-25] MEDS: PANTOPRAZOLE 40 MG VIAL IVP SCH (06:44)
[2020-05-25] MEDS: ASPIRIN 325 MG TABLET PO SCH ×2 (07:53→20:39)
--- NOTE | 2020-05-25 08:10 | PROVIDER PROGRESS NOTE ---
Assessment/Plan - Problem List (1) Closed left hip fracture Qualifiers: Encounter type: subsequent encounter Assessment/Plan: Patient is postop day 0 of left hip repair. She is doing well. Orthopedic following. They recommended weight bearing as tolerated. Follow-up in orthopedic clinic in 2 weeks for manish removal and new x-ray. PT OT to evaluate patient, treat and give recommendations for discharge. Anticipate discharge in 1-2 days (2) Diabetes mellitus Qualifiers: Diabetes mellitus type: type 2 Assessment/Plan: Metformin held. Patient is on sliding scale insulin and Accu-Cheks. Carb controlled diet ordered. Gabapentin 300 mg p.o. twice daily ordered for diabetic neuropathy. (3) Hypertension Assessment/Plan: On metoprolol succinate 25 mg p.o. twice daily and diltiazem. (4) Hyperlipidemia Assessment/Plan: On atorvastatin 20 mg p.o. every afternoon (5) Restless leg syndrome Assessment/Plan: On Mirapex 0.375 mg p.o. every afternoon - Current Meds Current Meds: Current Medications Generic Name Dose Route Start Last Admin Trade Name Freq PRN Reason Stop Dose Admin Hydrocodone Bitart/Acetaminophen 1 tab 05/23/20 11:16 05/24/20 17:36 Hydrocod/Acetam 10 Mg/325 Mg Tablet PO 1 tab Q4HR PRN Administration Pain 8 to 10 Aspirin 325 mg 05/25/20 08:00 05/25/20 07:53 Aspirin 325 Mg Tablet PO 325 mg BIDWM STACY Administration Atorvastatin Calcium 20 mg 05/24/20 21:00 05/24/20 20:43 Atorvastatin 10 Mg Tablet PO 20 mg QPM STACY Administration Diltiazem HCl 30 mg 05/24/20 21:00 05/24/20 20:43 Diltiazem 60 Mg Tablet PO 30 mg QPM STACY Administration Gabapentin 300 mg 05/24/20 21:00 05/24/20 20:43 Gabapentin 300 Mg Capsule PO 300 mg BID STACY Administration Hydromorphone HCl 1 mg 05/23/20 13:51 05/24/20 19:09 Hydromorphone 1 Mg/Ml Carpuject IVP 1 mg Q3H PRN Administration PAIN Sodium Chloride 1,000 mls @ 75 mls/hr 05/23/20 12:00 05/25/20 05:31 Normal Saline 0.9% IV Not Given .[id number] STACY Cefazolin Sodium/Dextrose 2 gm in 50 mls @ 100 mls/hr 05/25/20 06:00 05/25/20 06:20 Ancef 2 Gm/50 Ml IV 05/25/20 14:29 Infused Q8HR STACY Infusion Sodium Chloride 1,000 mls @ 100 mls/hr 05/24/20 23:00 05/25/20 00:47 Normal Saline 0.9% IV 100 mls/hr .Q10H STACY Administration Lorazepam 0.5 mg 05/24/20 12:48 05/24/20 13:57 Lorazepam 0.5 Mg Tablet PO 0.5 mg DAILY PRN Administration Cramp Metoprolol Succinate 25 mg 05/24/20 13:00 05/24/20 20:44 Metoprolol Succinate 25 Mg Tablet PO 25 mg BID STACY Administration Oxycodone HCl 5 mg 05/24/20 22:26 05/25/20 05:47 Oxycodone 5 Mg Tablet PO 5 mg Q4HR PRN Administration PAIN Pantoprazole Sodium 40 mg 05/24/20 07:00 05/25/20 06:44 Pantoprazole 40 Mg Vial IVP 40 mg QDAC STACY Administration Pramipexole Dihydrochloride 0.375 mg 05/24/20 21:00 05/24/20 20:49 Pramipexole 0.25 Mg Tablet PO 0.375 mg QPM STACY Administration Sodium Chloride 10 ml 05/23/20 11:16 05/24/20 06:31 Sodium Chloride Flush 0.9% 10 Ml Syringe IVP 10 ml PRN PRN Administration NEEDED PER PROVIDER ORDERS Sodium Chloride 10 ml 05/23/20 17:00 05/25/20 03:34 Sodium Chloride Flush 0.9% 10 Ml Syringe IVP Not Given 0100,0900,1700 STACY Sodium Chloride 10 ml 05/25/20 01:00 05/25/20 03:47 Sodium Chloride Flush 0.9% 10 Ml Syringe IVP Not Given 0100,0900,1700 STACY - Lab Result Fish Bone Diagrams: 05/25/20 03:55 05/25/20 03:55 - Additional Planning My Orders: My Active Orders 05/24/20 12:48 LORazepam [Ativan] 0.5 mg PO DAILY PRN 05/24/20 13:00 Metoprolol Succinate [Toprol Xl] 25 mg PO BID 05/24/20 21:00 Atorvastatin [Lipitor] 20 mg PO QPM Gabapentin [Neurontin] 300 mg PO BID Pramipexole [Mirapex] 0.375 mg PO QPM diltiaZEM [Cardizem] 30 mg PO QPM 05/26/20 05:00 BMP - BASIC METABOLIC PANEL [CHEM] DAILYLAB CBC - COMP BLD CT W/AUTO DIFF [HEME] DAILYLAB 05/27/20 05:00 BMP - BASIC METABOLIC PANEL [CHEM] DAILYLAB CBC - COMP BLD CT W/AUTO DIFF [HEME] DAILYLAB 05/28/20 05:00 BMP - BASIC METABOLIC PANEL [CHEM] DAILYLAB CBC - COMP BLD CT W/AUTO DIFF [HEME] DAILYLAB Subjective - Subjective Patient Reports: Other (Patient is postop day 0 of left hip replacement. She reports moderate pain but overall is doing well. She denies any other complaints.) Objective Vital Signs: Vital Signs - 24 hr 05/24/20 05/24/20 05/24/20 15:40 17:32 20:31 Temperature 37.6 C 37.3 C Heart Rate Heart Rate [ 106 H 105 H Brachial] Respiratory 20 19 Rate Blood Pressure Blood Pressure 125/81 H 130/59 L [Left Brachial artery] Blood Pressure 114/58 L [Right Brachial artery] O2 Saturation 91 L 93 92 05/24/20 05/24/20 05/24/20 20:43 23:46 23:55 Temperature 36 C L Heart Rate 93 93 Heart Rate [ Brachial] Respiratory 16 15 Rate Blood Pressure 130/59 L 104/63 112/100 H Blood Pressure [Left Brachial artery] Blood Pressure [Right Brachial artery] O2 Saturation 95 95 05/25/20 05/25/20 05/25/20 00:00 00:05 00:10 Temperature Heart Rate 94 91 88 Heart Rate [ Brachial] Respiratory 15 18 19 Rate Blood Pressure 141/120 H 100/76 103/92 H Blood Pressure [Left Brachial artery] Blood Pressure [Right Brachial artery] O2 Saturation 93 97 95 05/25/20 05/25/20 05/25/20 00:15 00:20 00:25 Temperature 36.2 C L Heart Rate 92 92 90 Heart Rate [ Brachial] Respiratory 13 17 13 Rate Blood Pressure 113/65 107/62 136/86 H Blood Pressure [Left Brachial artery] Blood Pressure [Right Brachial artery] O2 Saturation 96 91 L 91 L 05/25/20 05/25/20 05/25/20 00:45 01:15 01:51 Temperature 36.4 C L Heart Rate Heart Rate [ 86 93 83 Brachial] Respiratory 12 Rate Blood Pressure Blood Pressure 108/60 116/61 122/61 [Left Brachial artery] Blood Pressure [Right Brachial artery] O2 Saturation 94 97 96 05/25/20 05/25/20 05/25/20 02:45 03:45 06:00 Temperature 37.1 C Heart Rate Heart Rate [ 85 86 Brachial] Respiratory 16 Rate Blood Pressure Blood Pressure 134/63 H 134/63 H [Left Brachial artery] Blood Pressure [Right Brachial artery] O2 Saturation 97 99 05/25/20 07:51 Temperature 37 C Heart Rate Heart Rate [ 98 Brachial] Respiratory 18 Rate Blood Pressure Blood Pressure 120/58 L [Left Brachial artery] Blood Pressure [Right Brachial artery] O2 Saturation 94 Oxygen O2 Source Nasal cannula I&O (Last 24 Hrs): Intake and Output Totals x24h 05/23/20 05/24/20 05/25/20 23:59 23:59 23:59 Intake Total 985 2390 707.5 Output Total 775 550 Balance 985 1615 157.5 General: Alert, Oriented x3, Mild distress, Severe distress HEENT: PERRLA, EOMI Neck: Supple, No JVD Neuro: Alert, Non Focal, Oriented Times 3 Cardiovascular: Regular rate Respiratory: Chest non-tender, No respiratory distress, Other (Crackles heard on lung bases. Right worse than left.) Abdomen: Normal bowel sounds, Soft Extremities: No clubbing, No cyanosis, No edema Skin: No rashes - Results Results: Laboratory Results WBC 7.7 x10^3/uL (4.8-10.8) 05/25/20 03:55 RBC 2.77 10^6/uL (4.20-5.40) L 05/25/20 03:55 Hgb 8.4 g/dL (12.0-16.0) L 05/25/20 03:55 Hct 26.8 % (37.0-47.0) L 05/25/20 03:55 MCV 96.8 fL (81.0-99.0) 05/25/20 03:55 MCH 30.3 pg (27.0-31.0) 05/25/20 03:55 MCHC 31.3 g/dL (32.0-36.0) L 05/25/20 03:55 RDW 13.4 % (12.0-15.0) 05/25/20 03:55 Plt Count 149 10^3/uL (130-450) 05/25/20 03:55 MPV 9.9 fL (7.9-10.8) 05/25/20 03:55 Neut # (Auto) 5.7 10^3/uL (1.5-6.6) 05/25/20 03:55 Lymph # (Auto) 1.0 10^3/uL (1.5-3.5) L 05/25/20 03:55 [place] # (Auto) 0.7 10^3/uL (0.0-1.0) 05/25/20 03:55 Eos # (Auto) 0.2 10^3/uL (0.0-0.7) 05/25/20 03:55 Baso # (Auto) 0.0 10^3/uL (0.0-0.1) 05/25/20 03:55 Absolute Nucleated RBC 0.00 x10^3/uL 05/25/20 03:55 Nucleated RBC % 0.0 /100WBC 05/25/20 03:55 PT 11.7 secs (9.9-12.6) 05/23/20 10:29 INR 1.0 (0.8-1.2) 05/23/20 10:29 Sodium 129 mmol/L (135-145) L 05/25/20 03:55 Potassium 4.2 mmol/L (3.5-5.0) 05/25/20 03:55 Chloride 96 mmol/L (101-111) L 05/25/20 03:55 Carbon Dioxide 25 mmol/L (21-32) 05/25/20 03:55 Anion Gap 8.0 (6-13) 05/25/20 03:55 BUN 8 mg/dL (6-20) 05/25/20 03:55 Creatinine 0.7 mg/dL (0.4-1.0) 05/25/20 03:55 Estimated GFR (MDRD) 83 (>89) L 05/25/20 03:55 Glucose 144 mg/dL (70-100) H 05/25/20 03:55 POC Whole Bld Glucose 108 mg/dL (70 - 100) H 05/25/20 00:40 Calcium 7.7 mg/dL (8.5-10.3) L 05/25/20 03:55 Total Bilirubin 0.6 mg/dL (0.2-1.0) 05/23/20 10:29 AST 21 IU/L (10-42) 05/23/20 10:29 ALT 13 IU/L (10-60) 05/23/20 10:29 Alkaline Phosphatase 59 IU/L (42-121) 05/23/20 10:29 Total Protein 6.5 g/dL (6.7-8.2) L 05/23/20 10:29 Albumin 3.8 g/dL (3.2-5.5) 05/23/20 10:29 Globulin 2.7 g/dL (2.1-4.2) 05/23/20 10:29 Albumin/Globulin Ratio 1.4 (1.0-2.2) 05/23/20 10:29 Lipase 29 U/L (22-51) 05/23/20 10:29 Nasal Adenovirus (PCR) NOT DETECTED 05/23/20 12:09 Nasal B. parapertussis DNA (PCR) NOT DETECTED 05/23/20 12:09 Nasal Coronavir 229E PCR NOT DETECTED 05/23/20 12:09 Nasal Coronavir HKU1 PCR NOT DETECTED 05/23/20 12:09 Nasal Coronavir NL63 PCR NOT DETECTED 05/23/20 12:09 Nasal Coronavir OC43 PCR NOT DETECTED 05/23/20 12:09 Nasal Enterovir/Rhinovir PCR NOT DETECTED 05/23/20 12:09 Nasal Influenza B PCR NOT DETECTED 05/23/20 12:09 Nasal Influenza A PCR NOT DETECTED 05/23/20 12:09 Nasal Parainfluen 1 PCR NOT DETECTED 05/23/20 12:09 Nasal Parainfluen 2 PCR NOT DETECTED 05/23/20 12:09 Nasal Parainfluen 3 PCR NOT DETECTED 05/23/20 12:09 Nasal Parainfluen 4 PCR NOT DETECTED 05/23/20 12:09 Nasal RSV (PCR) NOT DETECTED 05/23/20 12:09 Nasal B.pertussis DNA PCR NOT DETECTED 05/23/20 12:09 Nasal C.pneumoniae (PCR) NOT DETECTED 05/23/20 12:09 [place] Human Metapneumo PCR NOT DETECTED 05/23/20 12:09 Nasal M.pneumoniae (PCR) NOT DETECTED 05/23/20 12:09 Nasal SARS-CoV-2 (PCR) NOT DETECTED 05/23/20 12:09 Blood Type O POSITIVE 05/23/20 10:29 Antibody Screen NEGATIVE 05/23/20 10:29 - Procedures Procedures: Procedures DESTRUCT-KNEE LESION NEC (12/13/13) EXCISION OF DESCENDING COLON, ENDO (03/02/20) EXCISION OF TRANSVERSE COLON, ENDO (03/02/20) LOC EXC LES TIBIA/FIBULA (12/13/13) TOTAL KNEE REPLACEMENT (12/28/12) ABX Reporting Has patient been on IV antibiotics over the past 48 hours?: No
[2020-05-25] MEDS ORDERED: FUROSEMIDE 20 MG/2 ML VIAL IVP STA (08:35)
[2020-05-25] MEDS: DOCUSATE SODIUM 100 MG CAPSULE PO PRN (08:37)
[2020-05-25] MEDS: METOPROLOL SUCCINATE 25 MG TABLET PO SCH ×2 (08:37→20:51)
[2020-05-25] MEDS: GABAPENTIN 300 MG CAPSULE PO SCH ×2 (08:37→20:39)
--- NOTE | 2020-05-25 11:11 | PROVIDER PROGRESS NOTE ---
Subjective - Prog Note Date Prog Note Date: 05/25/20 Prog Note Time: 11:08 - Subjective Pt reports feeling: Improved Objective - Vital Signs/Intake & Output Vital Signs: Vital Signs x48h Temp Pulse Resp BP Pulse Ox 05/25/20 07:51 37 C 98 18 120/58 L 94 05/25/20 06:00 37.1 C 16 05/25/20 03:45 86 134/63 H 99 Intake & Output: Intake & Output 05/22/20 05/23/20 05/24/20 05/25/20 23:59 23:59 23:59 23:59 Intake Total 985 2390 1187.5 Output Total 775 550 Balance 985 1615 637.5 - Lab Results Fish Bones: 05/25/20 03:55 05/25/20 03:55 Other Labs: Lab Results x24hrs 05/25/20 05/25/20 05/25/20 Range/Units 03:55 03:55 00:40 WBC 7.7 (4.8-10.8) x10^3/uL RBC 2.77 L (4.20-5.40) 10^6/uL Hgb 8.4 L (12.0-16.0) g/dL Hct 26.8 L (37.0-47.0) % MCV 96.8 (81.0-99.0) fL MCH 30.3 (27.0-31.0) pg MCHC 31.3 L (32.0-36.0) g/dL RDW 13.4 (12.0-15.0) % Plt Count 149 (130-450) 10^3/uL MPV 9.9 (7.9-10.8) fL Neut # (Auto) 5.7 (1.5-6.6) 10^3/uL Lymph # (Auto) 1.0 L (1.5-3.5) 10^3/uL [place] # (Auto) 0.7 (0.0-1.0) 10^3/uL Eos # (Auto) 0.2 (0.0-0.7) 10^3/uL Baso # (Auto) 0.0 (0.0-0.1) 10^3/uL Absolute Nucleated RBC 0.00 x10^3/uL Nucleated RBC % 0.0 /100WBC Sodium 129 L (135-145) mmol/L Potassium 4.2 (3.5-5.0) mmol/L Chloride 96 L (101-111) mmol/L Carbon Dioxide 25 (21-32) mmol/L Anion Gap 8.0 (6-13) BUN 8 (6-20) mg/dL Creatinine 0.7 (0.4-1.0) mg/dL Estimated GFR (MDRD) 83 L (>89) Glucose 144 H (70-100) mg/dL POC Whole Bld Glucose 108 H (70 - 100) mg/dL Calcium 7.7 L (8.5-10.3) mg/dL 05/25/20 05/24/20 05/24/20 Range/Units 00:08 17:00 11:47 WBC (4.8-10.8) x10^3/uL RBC (4.20-5.40) 10^6/uL Hgb (12.0-16.0) g/dL Hct (37.0-47.0) % MCV (81.0-99.0) fL MCH (27.0-31.0) pg MCHC (32.0-36.0) g/dL RDW (12.0-15.0) % Plt Count (130-450) 10^3/uL MPV (7.9-10.8) fL Neut # (Auto) (1.5-6.6) 10^3/uL Lymph # (Auto) (1.5-3.5) 10^3/uL [place] # (Auto) (0.0-1.0) 10^3/uL Eos # (Auto) (0.0-0.7) 10^3/uL Baso # (Auto) (0.0-0.1) 10^3/uL Absolute Nucleated RBC x10^3/uL Nucleated RBC % /100WBC Sodium (135-145) mmol/L Potassium (3.5-5.0) mmol/L Chloride (101-111) mmol/L Carbon Dioxide (21-32) mmol/L Anion Gap (6-13) BUN (6-20) mg/dL Creatinine (0.4-1.0) mg/dL Estimated GFR (MDRD) (>89) Glucose (70-100) mg/dL POC Whole Bld Glucose 66 L 114 H 119 H (70 - 100) mg/dL Calcium (8.5-10.3) mg/dL - Other Results/Comments Other Results/Comments: EXAM: Dressing intact. Mild pain with hip rotation. N/V ok distally Assessment/Plan - Problem List (1) Closed left hip fracture Impression: Satis post op PLAN: Mobilize as tolerated. Walker ambulate - WBAT on left in PT. To SNF in 1-2 days, if she progresses as anticipated. Follow up in clinic in 2 weeks for manish out and new XR. Qualifiers: Encounter type: subsequent encounter
[2020-05-25] MEDS: HYDROcod/ACETAM 10 MG/325 MG TABLET PO PRN ×3 (13:58→22:30)
--- NOTE | 2020-05-25 16:51 | XRAY Report ---
PROCEDURE: OR C-Arm Procedure INDICATIONS: LEFT HIP FRACTURE TECHNIQUE: 2 fluoroscopic images of the hip were obtained. COMPARISON: None. FINDINGS: Left femoral pin fixation is present. Good anatomic alignment is noted. Hardware is intact. It is not ed prior CT demonstrated fractures within the pubic rami and sacral alar not included within the fiel d-of-view on current images. IMPRESSION: Left femoral pin fixation as above. Reviewed by: Sarah Vallejo MD on 05/25/2020 4:50 PM PST Approved by: Sarah Vallejo MD on 05/25/2020 4:50 PM PST Station ID: [id number]
--- NOTE | 2020-05-25 17:26 | XRAY Report ---
PROCEDURE: Chest 1 View X-Ray INDICATIONS: crackles, fever TECHNIQUE: One view of the chest was acquired. COMPARISON: 05/23/2020 FINDINGS: Surgical changes and devices: None. Lungs and pleura: Interval increase in mild diffuse interstitial prominence and patchy bibasilar opa cities more pronounced on the right. There is eventration of the right hemidiaphragm. Blunting of the right costophrenic angle suggestive of a small pleural effusion. No pneumothorax. No focal consolida tions. No pleural effusions or pneumothorax. Lungs are clear. Mediastinum: Mediastinal contours appear normal. Heart size is normal. Bones and chest wall: No suspicious bony lesions. Overlying soft tissues appear unremarkable. IMPRESSION: Diffuse interstitial prominence with increased patchy bibasilar opacities most pronounced in the righ t lung base. New trace right pleural effusion. Findings likely related to an infectious/inflammatory process with developing airspace disease/pneumonia. No focal consolidation seen at this time. Recommend follow-up chest radiograph 4-6 weeks after treatment to document return to baseline exam. Reviewed by: Santhosh Garcia MD on 05/25/2020 4:25 PM [place] Approved by: Santhosh Garcia MD on 05/25/2020 4:25 PM [place] Station ID: [id number]
[2020-05-25] MEDS: ATORVASTATIN 10 MG TABLET PO SCH (20:43)
[2020-05-25] MEDS: PRAMIPEXOLE 0.25 MG TABLET PO SCH (20:45)
[2020-05-25] MEDS ORDERED: diltiaZEM 30 MG TABLET PO SCH (21:00)
[2020-05-25] MEDS: HYDROmorphone 1 MG/ML CARPUJECT IVP PRN ×2 (22:08→22:09)
[2020-05-25] MEDS: INSULIN ASPART 300 UNIT/3 ML PEN SUBQ SCH ×3 (23:35→23:37)
[2020-05-25] MEDS ORDERED: SODIUM CHLORIDE 0.9% 500 ML IV ONE (23:51)
[2020-05-26] MEDS: SODIUM CHLORIDE FLUSH 0.9% 10 ML SYRINGE IVP SCH ×5 (00:34→15:39)
[2020-05-26] MEDS: SODIUM CHLORIDE 0.9% 1,000 ML IV SCH (02:33)
[2020-05-26 05:20] LABS: BASOPHILS % (AUTO) 0.3 %; EOSINOPHILS # (AUTO) 0.4 10^3/uL (0.0-0.7); EOSINOPHILS % (AUTO) 5.5 %; HGB - HEMOGLOBIN 7.1 g/dL (12.0-16.0); LYMPHOCYTES # (AUTO) 1.9 10^3/uL (1.5-3.5); MEAN CORPUSCULAR HEMOGLOBIN 30.9 pg (27.0-31.0); MEAN CORPUSCULAR HGB CONC 31.4 g/dL (32.0-36.0); MEAN CORPUSCULAR VOLUME 98.3 fL (81.0-99.0); MONOCYTES # (AUTO) 0.9 10^3/uL (0.0-1.0); MONOCYTES % (AUTO) 12.5 %; NEUTROPHILS # (AUTO) 4.1 10^3/uL (1.5-6.6); NEUTROPHILS % (AUTO) 55.3 %; PLT - PLATELET COUNT 119 10^3/uL (130-450); RED CELL DISTRIBUTION WIDTH 13.5 % (12.0-15.0); WHITE BLOOD COUNT 7.5 x10^3/uL (4.8-10.8)
[2020-05-26 05:23] LABS: CALCIUM 7.3 mg/dL (8.5-10.3); CREATININE 0.9 mg/dL (0.4-1.0)
[2020-05-26] MEDS: HYDROcod/ACETAM 10 MG/325 MG TABLET PO PRN ×3 (06:56→17:03)
[2020-05-26] MEDS: PANTOPRAZOLE 40 MG VIAL IVP SCH (06:57)
[2020-05-26] MEDS: polyethylene glycoL 3350 17 GM PACKET PO SCH (09:03)
[2020-05-26] MEDS: ASPIRIN 325 MG TABLET PO SCH ×2 (09:04→16:57)
[2020-05-26] MEDS: INSULIN ASPART 300 UNIT/3 ML PEN SUBQ SCH ×3 (09:05→21:37)
[2020-05-26] MEDS: SENNA 8.6 MG TABLET PO SCH (09:05)
[2020-05-26] MEDS: GABAPENTIN 300 MG CAPSULE PO SCH ×2 (09:06→20:45)
[2020-05-26] MEDS: DOCUSATE SODIUM 250 MG CAPSULE PO SCH (09:06)
[2020-05-26] MEDS: DOCUSATE SODIUM 100 MG CAPSULE PO PRN (09:06)
[2020-05-26] MEDS: METOPROLOL SUCCINATE 25 MG TABLET PO SCH ×2 (09:06→20:51)
[2020-05-26] MEDS: FERROUS SULFATE 325 MG TABLET PO SCH (11:37)
[2020-05-26] MEDS ORDERED: cefTRIAXone 1 GM in SODIUM CHLORIDE 0.9% MINIBAG 100 ML IV SCH (13:46)
[2020-05-26] MEDS ORDERED: AZITHROMYCIN INJ 500 MG in SODIUM CHLORIDE 0.9% 250 ML IV SCH (13:47)
[2020-05-26] MEDS ORDERED: FUROSEMIDE 40 MG/4 ML VIAL IVP STA (13:48)
[2020-05-26] MEDS ORDERED: KETOROLAC 15 MG/ML VIAL IVP PRN (13:50)
[2020-05-26] MEDS: HYDROmorphone 1 MG/ML CARPUJECT IVP PRN (14:17)
[2020-05-26] MEDS ORDERED: PIPERACILLIN/TAZOBACTAM 3.375 GM in SODIUM CHLORIDE 0.9% MINIBAG 100 ML IV SCH (15:00)
--- NOTE | 2020-05-26 18:13 | PROVIDER PROGRESS NOTE ---
Assessment/Plan - Problem List (1) Closed left hip fracture Qualifiers: Encounter type: subsequent encounter Assessment/Plan: Patient is postop day 2 of left hip repair. She is doing well. Orthopedic following. They recommended weight bearing as tolerated. Follow-up in orthopedic clinic in 2 weeks for manish removal and new x-ray. PT OT evaluated patient and is treating patient. Recommendations was for discharge tomorrow. Patient will be discharged home with home health. Anticipate discharge tomorrow. (2) Diabetes mellitus Qualifiers: Diabetes mellitus type: type 2 Assessment/Plan: Metformin held. Patient is on sliding scale insulin and Accu-Cheks. Carb controlled diet ordered. Gabapentin 300 mg p.o. twice daily ordered for diabetic neuropathy. (3) Hypertension Assessment/Plan: On metoprolol succinate 25 mg p.o. twice daily and diltiazem. (5) Restless leg syndrome Assessment/Plan: On Mirapex 0.375 mg p.o. every afternoon (6) Pneumonia Assessment/Plan: Patient required 2 L of oxygen via nasal cannula today. Chest x-ray last night showed Diffuse interstitial prominence with increased patchy bibasilar opacities more pronounced in the right lung base. There was n ew trace right pleural effusion. Findings likely related to an infectious/inflammatory process with developing airspace disease/pneumonia. HCAP versus community acquired pneumonia. Patient's IV fluids were discontinued. Patient was given Lasix 40 mg IV x1. Patient was started on Zosyn 3.375 mg with loading dose given and continuous infusion afterwards. We will continue to monitor. Patient is on supplemental oxygen. Goal would be to wean patient off oxygen. If patient's respiratory status is improved tomorrow, will continue to discharge on Augmentin. (7) Closed left clavicular fracture Assessment/Plan: This happened at the same time as the patient's left femoral neck fracture. No intervention is required. Pain management as needed with Tylenol. - Current Meds Current Meds: Current Medications Generic Name Dose Route Start Last Admin Trade Name Freq PRN Reason Stop Dose Admin Hydrocodone Bitart/Acetaminophen 1 tab 05/23/20 11:16 05/26/20 17:03 Hydrocod/Acetam 10 Mg/325 Mg Tablet PO 1 tab Q4HR PRN Administration Pain 8 to 10 Aspirin 325 mg 05/25/20 08:00 05/26/20 16:57 Aspirin 325 Mg Tablet PO 325 mg BIDWM STACY Administration Atorvastatin Calcium 20 mg 05/24/20 21:00 05/25/20 20:43 Atorvastatin 10 Mg Tablet PO 20 mg QPM STACY Administration Docusate Sodium 100 mg 05/24/20 22:26 05/26/20 09:06 Docusate Sodium 100 Mg Capsule PO 100 mg BID PRN Administration Constipation Docusate Sodium 250 - 500 mg 05/26/20 09:00 05/26/20 09:06 Docusate Sodium 250 Mg Capsule PO Not Given DAILY STACY Ferrous Sulfate 325 mg 05/26/20 11:00 05/26/20 11:37 Ferrous Sulfate 325 Mg Tablet PO 325 mg DAILYWM STACY Administration Gabapentin 300 mg 05/24/20 21:00 05/26/20 09:06 Gabapentin 300 Mg Capsule PO 300 mg BID STACY Administration Hydromorphone HCl 1 mg 05/23/20 13:51 05/26/20 14:17 Hydromorphone 1 Mg/Ml Carpuject IVP 1 mg Q3H PRN Administration PAIN Insulin Aspart 1 - 5 unit 05/25/20 08:00 05/26/20 12:38 Insulin Aspart 300 Unit/3 Ml Pen SUBQ 1 unit 0800,1200,1700,2100 STACY Administration Protocol Lorazepam 0.5 mg 05/24/20 12:48 05/24/20 13:57 Lorazepam 0.5 Mg Tablet PO 0.5 mg DAILY PRN Administration Cramp Metoprolol Succinate 25 mg 05/25/20 23:51 05/26/20 09:06 Metoprolol Succinate 25 Mg Tablet PO Not Given BID STACY Oxycodone HCl 5 mg 05/24/20 22:26 05/25/20 11:13 Oxycodone 5 Mg Tablet PO 5 mg Q4HR PRN Administration PAIN Pantoprazole Sodium 40 mg 05/24/20 07:00 05/26/20 06:57 Pantoprazole 40 Mg Vial IVP 40 mg QDAC STACY Administration Polyethylene Glycol 17 gm 05/26/20 09:00 05/26/20 09:03 Polyethylene Glycol 3350 17 Gm Packet PO 17 gm DAILY STACY Administration Pramipexole Dihydrochloride 0.375 mg 05/24/20 21:00 05/25/20 20:45 Pramipexole 0.25 Mg Tablet PO 0.375 mg QPM STACY Administration Senna 8.6 - 17.2 mg 05/26/20 09:00 05/26/20 09:05 Senna 8.6 Mg Tablet PO 17.2 mg DAILY STACY Administration Sodium Chloride 10 ml 05/23/20 11:16 05/24/20 06:31 Sodium Chloride Flush 0.9% 10 Ml Syringe IVP 10 ml PRN PRN Administration NEEDED PER PROVIDER ORDERS Sodium Chloride 10 ml 05/23/20 17:00 05/26/20 15:39 Sodium Chloride Flush 0.9% 10 Ml Syringe IVP 10 ml 0100,0900,1700 STACY Administration Sodium Chloride 10 ml 05/25/20 01:00 05/26/20 09:07 Sodium Chloride Flush 0.9% 10 Ml Syringe IVP 10 ml 0100,0900,1700 STACY Administration - Lab Result Fish Bone Diagrams: 05/26/20 04:28 05/26/20 04:28 - Additional Planning My Orders: My Active Orders 05/26/20 09:00 Docusate Sodium 250Mg Capsule [Colace 250Mg Capsule] 250 - 500 mg PO DAILY Senna [Senokot] 8.6 - 17.2 mg PO DAILY polyethylene glycoL 3350 [Miralax] 17 gm PO DAILY 05/26/20 10:24 Incentive Spirometry - RT [RC] .TID 05/26/20 10:25 RT [Oxygen Therapy] [RC] .PRN 05/26/20 11:00 Ferrous Sulfate [Feosol] 325 mg PO DAILYWM 05/26/20 19:30 Piperacillin/Tazobactam [Zosyn] 3.375 gm Sodium Chloride 0.9% Minibag [Normal Saline 0.9% Minibag] 100 ml IV Q8H 05/27/20 05:00 BMP - BASIC METABOLIC PANEL [CHEM] DAILYLAB CBC - COMP BLD CT W/AUTO DIFF [HEME] DAILYLAB 05/28/20 05:00 BMP - BASIC METABOLIC PANEL [CHEM] DAILYLAB CBC - COMP BLD CT W/AUTO DIFF [HEME] DAILYLAB Subjective - Subjective Patient Reports: Other (Patient was said up in bedside chair at time of exam having lunch. She denied chest pain. She reported breathing better today. However with ambulation it appears her oxygen dropped to the 80s. Her hip pain was manageable. Rest of the history is unremarkable.) Objective Vital Signs: Vital Signs - 24 hr 05/25/20 05/25/20 05/25/20 20:48 20:51 23:51 Temperature 36.5 C 37.0 C Heart Rate Heart Rate [ 102 H 70 Brachial] Respiratory 15 20 Rate Blood Pressure 110/64 Blood Pressure [Left Brachial artery] Blood Pressure 110/64 81/51 L [Right Brachial artery] O2 Saturation 100 93 05/26/20 05/26/20 05/26/20 04:57 07:42 08:45 Temperature 37 C 37.0 C Heart Rate Heart Rate [ 73 80 Brachial] Respiratory 18 20 Rate Blood Pressure Blood Pressure [Left Brachial artery] Blood Pressure 106/55 L 97/54 L [Right Brachial artery] O2 Saturation 94 90 L 86 L 05/26/20 05/26/20 05/26/20 09:00 10:20 12:00 Temperature 37 C 37.0 C Heart Rate 83 Heart Rate [ 82 Brachial] Respiratory 20 16 Rate Blood Pressure Blood Pressure 114/64 [Left Brachial artery] Blood Pressure [Right Brachial artery] O2 Saturation 91 L 87 L 95 05/26/20 16:35 Temperature 36.7 C Heart Rate Heart Rate [ 87 Brachial] Respiratory 18 Rate Blood Pressure Blood Pressure 101/57 L [Left Brachial artery] Blood Pressure [Right Brachial artery] O2 Saturation 93 Oxygen O2 Source Nasal cannula I&O (Last 24 Hrs): Intake and Output Totals x24h 05/24/20 05/25/20 05/26/20 23:59 23:59 23:59 Intake Total 2390 4359.166 2263.333 Output Total 775 1350 675 Balance 1615 3009.166 1588.333 General: Alert, Oriented x3, Mild distress, Moderate distress HEENT: PERRLA, EOMI Neck: No JVD Neuro: Alert, Oriented Times 3 Cardiovascular: Regular rate Respiratory: Wheezes (in lung bases) Abdomen: Normal bowel sounds, Soft, No tenderness Extremities: No cyanosis, No edema, Other Comments/Notes: Bruising over left clavicle from fall. - Results Results: Laboratory Results WBC 7.5 x10^3/uL (4.8-10.8) 05/26/20 04:28 RBC 2.30 10^6/uL (4.20-5.40) L 05/26/20 04:28 Hgb 7.1 g/dL (12.0-16.0) L 05/26/20 04:28 Hct 22.6 % (37.0-47.0) L 05/26/20 04:28 MCV 98.3 fL (81.0-99.0) 05/26/20 04:28 MCH 30.9 pg (27.0-31.0) 05/26/20 04:28 MCHC 31.4 g/dL (32.0-36.0) L 05/26/20 04:28 RDW 13.5 % (12.0-15.0) 05/26/20 04:28 Plt Count 119 10^3/uL (130-450) L 05/26/20 04:28 MPV 10.0 fL (7.9-10.8) 05/26/20 04:28 Neut # (Auto) 4.1 10^3/uL (1.5-6.6) 05/26/20 04:28 Lymph # (Auto) 1.9 10^3/uL (1.5-3.5) 05/26/20 04:28 [place] # (Auto) 0.9 10^3/uL (0.0-1.0) 05/26/20 04:28 Eos # (Auto) 0.4 10^3/uL (0.0-0.7) 05/26/20 04:28 Baso # (Auto) 0.0 10^3/uL (0.0-0.1) 05/26/20 04:28 Absolute Nucleated RBC 0.00 x10^3/uL 05/26/20 04:28 Nucleated RBC % 0.0 /100WBC 05/26/20 04:28 PT 11.7 secs (9.9-12.6) 05/23/20 10:29 INR 1.0 (0.8-1.2) 05/23/20 10:29 Sodium 128 mmol/L (135-145) L 05/26/20 04:28 Potassium 4.0 mmol/L (3.5-5.0) 05/26/20 04:28 Chloride 98 mmol/L (101-111) L 05/26/20 04:28 Carbon Dioxide 25 mmol/L (21-32) 05/26/20 04:28 Anion Gap 5.0 (6-13) L 05/26/20 04:28 BUN 10 mg/dL (6-20) 05/26/20 04:28 Creatinine 0.9 mg/dL (0.4-1.0) 05/26/20 04:28 Estimated GFR (MDRD) 62 (>89) L 05/26/20 04:28 Glucose 134 mg/dL (70-100) H 05/26/20 04:28 POC Whole Bld Glucose 95 mg/dL (70 - 100) 05/26/20 16:47 Calcium 7.3 mg/dL (8.5-10.3) L 05/26/20 04:28 Total Bilirubin 0.6 mg/dL (0.2-1.0) 05/23/20 10:29 AST 21 IU/L (10-42) 05/23/20 10:29 ALT 13 IU/L (10-60) 05/23/20 10:29 Alkaline Phosphatase 59 IU/L (42-121) 05/23/20 10:29 Total Protein 6.5 g/dL (6.7-8.2) L 05/23/20 10:29 Albumin 3.8 g/dL (3.2-5.5) 05/23/20 10:29 Globulin 2.7 g/dL (2.1-4.2) 05/23/20 10:29 Albumin/Globulin Ratio 1.4 (1.0-2.2) 05/23/20 10:29 Lipase 29 U/L (22-51) 05/23/20 10:29 Nasal Adenovirus (PCR) NOT DETECTED 05/23/20 12:09 Nasal B. parapertussis DNA (PCR) NOT DETECTED 05/23/20 12:09 Nasal Coronavir 229E PCR NOT DETECTED 05/23/20 12:09 Nasal Coronavir HKU1 PCR NOT DETECTED 05/23/20 12:09 Nasal Coronavir NL63 PCR NOT DETECTED 05/23/20 12:09 Nasal Coronavir OC43 PCR NOT DETECTED 05/23/20 12:09 Nasal Enterovir/Rhinovir PCR NOT DETECTED 05/23/20 12:09 Nasal Influenza B PCR NOT DETECTED 05/23/20 12:09 Nasal Influenza A PCR NOT DETECTED 05/23/20 12:09 Nasal Parainfluen 1 PCR NOT DETECTED 05/23/20 12:09 Nasal Parainfluen 2 PCR NOT DETECTED 05/23/20 12:09 Nasal Parainfluen 3 PCR NOT DETECTED 05/23/20 12:09 Nasal Parainfluen 4 PCR NOT DETECTED 05/23/20 12:09 Nasal RSV (PCR) NOT DETECTED 05/23/20 12:09 Nasal B.pertussis DNA PCR NOT DETECTED 05/23/20 12:09 Nasal C.pneumoniae (PCR) NOT DETECTED 05/23/20 12:09 [place] Human Metapneumo PCR NOT DETECTED 05/23/20 12:09 Nasal M.pneumoniae (PCR) NOT DETECTED 05/23/20 12:09 Nasal SARS-CoV-2 (PCR) NOT DETECTED 05/23/20 12:09 Blood Type O POSITIVE 05/23/20 10:29 Antibody Screen NEGATIVE 05/23/20 10:29 - Procedures Procedures: Procedures DESTRUCT-KNEE LESION NEC (12/13/13) EXCISION OF DESCENDING COLON, ENDO (03/02/20) EXCISION OF TRANSVERSE COLON, ENDO (03/02/20) LOC EXC LES TIBIA/FIBULA (12/13/13) TOTAL KNEE REPLACEMENT (12/28/12)
[2020-05-26] MEDS: PIPERACILLIN/TAZOBACTAM 3.375 GM in SODIUM CHLORIDE 0.9% MINIBAG 100 ML IV SCH (19:38)
[2020-05-26] MEDS: ATORVASTATIN 10 MG TABLET PO SCH (20:55)
[2020-05-26] MEDS: PRAMIPEXOLE 0.25 MG TABLET PO SCH (20:59)
[2020-05-27] MEDS: PIPERACILLIN/TAZOBACTAM 3.375 GM in SODIUM CHLORIDE 0.9% MINIBAG 100 ML IV SCH ×3 (03:27→19:10)
[2020-05-27] MEDS: SODIUM CHLORIDE FLUSH 0.9% 10 ML SYRINGE IVP SCH ×7 (03:31→17:21)
[2020-05-27 05:20] LABS: BASOPHILS % (AUTO) 0.3 %; EOSINOPHILS # (AUTO) 0.4 10^3/uL (0.0-0.7); EOSINOPHILS % (AUTO) 5.5 %; HGB - HEMOGLOBIN 7.5 g/dL (12.0-16.0); LYMPHOCYTES # (AUTO) 1.9 10^3/uL (1.5-3.5); LYMPHOCYTES % (AUTO) 24.5 %; MEAN CORPUSCULAR HEMOGLOBIN 30.5 pg (27.0-31.0); MEAN CORPUSCULAR HGB CONC 31.3 g/dL (32.0-36.0); MEAN CORPUSCULAR VOLUME 97.6 fL (81.0-99.0); MONOCYTES # (AUTO) 0.9 10^3/uL (0.0-1.0); MONOCYTES % (AUTO) 11.1 %; NEUTROPHILS # (AUTO) 4.6 10^3/uL (1.5-6.6); NEUTROPHILS % (AUTO) 58.1 %; PLT - PLATELET COUNT 165 10^3/uL (130-450); RED BLOOD COUNT 2.46 10^6/uL (4.20-5.40); RED CELL DISTRIBUTION WIDTH 13.4 % (12.0-15.0); WHITE BLOOD COUNT 7.9 x10^3/uL (4.8-10.8)
[2020-05-27] MEDS: HYDROcod/ACETAM 10 MG/325 MG TABLET PO PRN ×4 (05:27→22:04)
[2020-05-27 05:32] LABS: CALCIUM 7.8 mg/dL (8.5-10.3); CREATININE 0.8 mg/dL (0.4-1.0)
[2020-05-27] MEDS: PANTOPRAZOLE 40 MG VIAL IVP SCH (06:54)
[2020-05-27] MEDS: SODIUM CHLORIDE FLUSH 0.9% 10 ML SYRINGE IVP PRN (06:54)
--- NOTE | 2020-05-27 08:05 | DISCHARGE SUMMARY ---
Discharge Summary Admit Date: 05/23/20 Discharge Date: 05/27/20 Discharging Provider: Naseem Bunn Condition at Discharge: Serious Discharge Disposition: 06 Home Health Service - DIAGNOSES Admission Diagnoses: Closed left hip fracture Diabetes mellitus Hypertension Hyperlipidemia Restless leg syndrome Discharge Diagnoses with Status of Each Condition: Closed left hip fracture: Status post repair Diabetes mellitus: Chronic Hypertension: Chronic Hyperlipidemia: Chronic Restless leg syndrome: Chronic Pneumonia: Acute.being treated Closed left clavicular fracture Anemia: Acute on chronic: Improved/resolved - HPI History of Present Illness: Patient is a 70 -year-old female with medical history significant for diabetes mellitus on Metformin, hypertension and hyperlipidemia who presented to the ED after a mechanical fall. 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 She had gone there to assist when she realized the business was still closed. While she was going back to the car she slipped on the curb and fell. She did not hit her head or blackout. Her fall was witnessed by passerby's who came to the aid. Her then brought her to the ED via personal car. Work-up in the ED included an x-ray of the pelvis and hip which was significant for a left subcapital femoral neck fracture. Consequently the patient was presented for admission for further treatment. At bedside she was trying to rest but appeared to be in moderate to severe pain. She denied chest pain, abdominal pain, nausea, vomiting, fever or chills. Dr. Aldo Erickson with orthopedic surgery was contacted and is agreeable to see the patient in consult. - HOSPITAL COURSE Hospital Course: The patient was taken to the OR by Dr. Carlson. Surgery was uneventful and successful. Patient worked with physical therapy on the days following surgery. It was determined she could be discharged home home with PT OT. Over the course of the patient's hospital stay she still became hypoxic and was requiring about 2 L of oxygen. She also had significant crackles on auscultation. She was given several doses of Lasix over 2 to 3 days with no significant improvement or resolution of her hypoxia. Repeat chest x-ray suggested pneumonia. The patient was started on Zosyn and maintained on Zosyn for 3 days. Upon discharge she was given a prescription of Augmentin 875/125 mg p.o. twice daily for 5 days. Idea of admission the patient's hemoglobin was 11.6. On the day prior to discharge her hemoglobin was 7.5. This is a four-point drop over 3 days. The patient was given 2 units of packed red blood cells. There was no definite source of blood loss. She also received supplemental iron while she was in the hospital. She takes supplemental iron at home for chronic anemia. On the day of discharge she did not require oxygen for ambulation or at rest. She is to follow-up with orthopedics in 2 weeks. She is to take a full dose aspirin twice daily for 2 weeks then switch to her baby aspirin a day. - ALLERGIES Allergies/Adverse Reactions: Allergies Allergy/AdvReac Type Severity Reaction Status Date / Time No Known Drug Allergies Allergy Verified 05/23/20 09:19 - MEDICATIONS Home Medications: Ambulatory Orders Medication Instructions Recorded Confirmed Aspirin [Aspir 81] 81 mg PO DAILY 12/22/12 05/24/20 Atorvastatin Calcium 20 mg PO QPM 12/22/12 05/24/20 Calcium Carbonate/Vitamin D3 1 each PO BID 12/22/12 05/24/20 [Calcium 600-Vit D3 200 Tablet] Metformin HCl 1,000 mg PO BID 12/22/12 05/24/20 Pramipexole Di-HCl [Pramipexole 0.375 mg PO QPM 12/22/12 05/24/20 Dihydrochloride] diltiaZEM [Cardizem] 30 mg PO QPM 12/22/12 05/24/20 LORazepam [Lorazepam] 0.5 mg PO DAILY PRN 12/10/13 05/24/20 Gabapentin 300 mg PO BID 03/01/20 05/24/20 Metoprolol Succinate 25 mg PO BID 03/01/20 05/24/20 Albuterol Sulfate [Proair Hfa 1 - 2 puffs INH Q4H PRN 03/02/20 05/24/20 Inhaler] Iron,Carbonyl [Iron Chews] 1,565 mg PO DAILY 03/02/20 05/24/20 Loratadine 10 mg PO DAILY 03/02/20 05/24/20 Melatonin 5 mg PO DAILY 03/02/20 05/24/20 Amox/Clav 875/125 [Augmentin] 1 each PO Q12H 5 Days #10 tablet 05/28/20 Aspirin EC [Ecotrin] 325 mg PO BID 14 Days #28 tablet 05/28/20 HYDROcod/ACETAM 5/325 [[place] 5/325] 1 each PO Q6H PRN 7 Days #28 tablet 05/28/20 - PHYSICAL EXAM AT DISCHARGE General Appearance: positive: Alert, Mild distress, Moderate distress Eyes Bilateral: positive: PERRL, EOMI ENT: positive: No signs of dehydration Neck: positive: No JVD, Trachea midline Respiratory: positive: Chest non-tender, No respiratory distress, Breath sounds nml, Other (Mild crackles bilaterally) Cardiovascular: positive: Regular rate & rhythm Abdomen: positive: Non-tender, No organomegaly, Nml bowel sounds, No distention. negative: Guarding, Rebound Back: positive: Nml inspection Skin: positive: Color nml, No rash, Warm, Dry Extremities: positive: No pedal edema, Other (Mild to moderate tenderness s/p repair) Neurologic/Psychiatric: positive: Oriented x3, Mood/affect nml - LABS Result Diagrams: 05/28/20 04:47 05/28/20 04:47 - TIME SPENT Time Spent in Discharge (Minutes): 25
--- NOTE | 2020-05-27 08:08 | Discharge Plan ---
Discharge Plan Problem Reviewed?: Yes Disposition: 06 Home Health Service Condition: Serious Prescriptions: Amox/Clav 875/125 [Augmentin] 1 each PO Q12H 5 Days #10 tablet Activity Restrictions: Wt Bearing as Tolerated Health Concerns: You were admitted on 05/23/2020 with left hip fracture after a mechanical fall. You tripped on a curb and fell. You underwent surgery which went well. Your pain was managed as needed with pain medications. Through the course of your stay you were having some difficulty breathing and required some supplemental oxygen. Chest x-ray done also showed you had pneumonia. As a result you were placed on IV antibiotic with Zosyn. Also your hemoglobin dropped from 11.6 to 7.5 over the course of 4 days. As a result you were transfused 2 unit of packed red blood cells. You were also placed on iron supplements. You will continue to take your home iron supplements as Prescribed by your PCP You will be discharged home with a 5-day prescription of Augmentin 875/125 mg to take 1 tablet by mouth twice daily. You will follow-up with orthopedics in clinic in 2 weeks. You will follow up with your primary care physician within 1 week. You will be discharged home with home health PT/OT. Plan of Treatment: You were admitted on 05/23/2020 with left hip fracture after a mechanical fall. You tripped on a curb and fell. You underwent surgery which went well. Your pain was managed as needed with pain medications. Through the course of your stay you were having some difficulty breathing and required some supplemental oxygen. Chest x-ray done also showed you had pneumonia. As a result you were placed on IV antibiotic with Zosyn. Also your hemoglobin dropped from 11.6 to 7.5 over the course of 4 days. As a result you were transfused 2 unit of packed red blood cells. You were also placed on iron supplements. You will be discharged home with a 5-day prescription of Augmentin 875/125 mg to take 1 tablet by mouth twice daily. You will follow-up with orthopedics in clinic in 2 weeks. You will follow up with your primary care physician within 1 week. You will be discharged home with home health PT/OT. Care Goals: You were admitted on 05/23/2020 with left hip fracture after a mechanical fall. You tripped on a curb and fell. You underwent surgery which went well. Your pain was managed as needed with pain medications. Through the course of your stay you were having some difficulty breathing and required some supplemental oxygen. Chest x-ray done also showed you had pneumonia. As a result you were placed on IV antibiotic with Zosyn. Also your hemoglobin dropped from 11.6 to 7.5 over the course of 4 days. As a result you were transfused 2 unit of packed red blood cells. You were also placed on iron supplements. You will be discharged home with a 5-day prescription of Augmentin 875/125 mg to take 1 tablet by mouth twice daily. You will follow-up with orthopedics in clinic in 2 weeks. You will follow up with your primary care physician within 1 week. You will be discharged home with home health PT/OT. Assessment: It was explained to the patient who expressed understanding. She lives with her who would be able to provide support for her. Follow-Up Care: Home Health - PT, Home Health - OT No Smoking: If you smoke, Please STOP! Call for help. Follow-up with: Jeane Marley DO [Primary Care Provider] -
[2020-05-27] MEDS: INSULIN ASPART 300 UNIT/3 ML PEN SUBQ SCH ×5 (08:10→21:04)
[2020-05-27] MEDS: polyethylene glycoL 3350 17 GM PACKET PO SCH (08:27)
[2020-05-27] MEDS: GABAPENTIN 300 MG CAPSULE PO SCH ×2 (08:33→20:52)
[2020-05-27] MEDS: FERROUS SULFATE 325 MG TABLET PO SCH (08:35)
[2020-05-27] MEDS: SENNA 8.6 MG TABLET PO SCH (08:35)
[2020-05-27] MEDS: ASPIRIN 325 MG TABLET PO SCH ×2 (08:35→16:42)
[2020-05-27] MEDS: METOPROLOL SUCCINATE 25 MG TABLET PO SCH ×2 (08:35→20:52)
[2020-05-27] MEDS: DOCUSATE SODIUM 250 MG CAPSULE PO SCH (08:45)
[2020-05-27] MEDS ORDERED: FUROSEMIDE 40 MG/4 ML VIAL IVP PRN (10:12)
--- NOTE | 2020-05-27 11:10 | PROVIDER PROGRESS NOTE ---
Subjective - Prog Note Date Prog Note Date: 05/27/20 Prog Note Time: 11:08 - Subjective Pt reports feeling: Improved (Less hip and shoulder pain now) Subjective: Less pain today. No SOB, dizziness. Siting chair ok Objective - Vital Signs/Intake & Output Vital Signs: Vital Signs x48h Temp Pulse Resp BP Pulse Ox 05/27/20 08:00 37.2 C 80 18 120/80 93 05/27/20 06:53 37.2 C 05/27/20 04:47 37.2 C 87 18 108/53 L 96 Intake & Output: Intake & Output 05/24/20 05/25/20 05/26/20 05/27/20 23:59 23:59 23:59 23:59 Intake Total 2390 4359.166 2603.333 835 Output Total 775 1350 675 850 Balance 1615 3009.166 1928.333 -15 - Lab Results Fish Bones: 05/27/20 04:40 05/27/20 04:40 Other Labs: Lab Results x24hrs 05/27/20 05/27/20 05/27/20 Range/Units 08:37 07:50 04:40 WBC (4.8-10.8) x10^3/uL RBC (4.20-5.40) 10^6/uL Hgb (12.0-16.0) g/dL Hct (37.0-47.0) % MCV (81.0-99.0) fL MCH (27.0-31.0) pg MCHC (32.0-36.0) g/dL RDW (12.0-15.0) % Plt Count (130-450) 10^3/uL MPV (7.9-10.8) fL Neut # (Auto) (1.5-6.6) 10^3/uL Lymph # (Auto) (1.5-3.5) 10^3/uL [place] # (Auto) (0.0-1.0) 10^3/uL Eos # (Auto) (0.0-0.7) 10^3/uL Baso # (Auto) (0.0-0.1) 10^3/uL Absolute Nucleated RBC x10^3/uL Nucleated RBC % /100WBC Sodium 127 L (135-145) mmol/L Potassium 4.2 (3.5-5.0) mmol/L Chloride 97 L (101-111) mmol/L Carbon Dioxide 24 (21-32) mmol/L Anion Gap 6.0 (6-13) BUN 11 (6-20) mg/dL Creatinine 0.8 (0.4-1.0) mg/dL Estimated GFR (MDRD) 71 L (>89) Glucose 129 H (70-100) mg/dL POC Whole Bld Glucose 149 H (70 - 100) mg/dL Calcium 7.8 L (8.5-10.3) mg/dL Blood Type O POSITIVE Antibody Screen NEGATIVE Crossmatch IS Only See Detail 05/27/20 05/26/20 05/26/20 Range/Units 04:40 20:04 16:47 WBC 7.9 (4.8-10.8) x10^3/uL RBC 2.46 L (4.20-5.40) 10^6/uL Hgb 7.5 L (12.0-16.0) g/dL Hct 24.0 L (37.0-47.0) % MCV 97.6 (81.0-99.0) fL MCH 30.5 (27.0-31.0) pg MCHC 31.3 L (32.0-36.0) g/dL RDW 13.4 (12.0-15.0) % Plt Count 165 (130-450) 10^3/uL MPV 10.0 (7.9-10.8) fL Neut # (Auto) 4.6 (1.5-6.6) 10^3/uL Lymph # (Auto) 1.9 (1.5-3.5) 10^3/uL [place] # (Auto) 0.9 (0.0-1.0) 10^3/uL Eos # (Auto) 0.4 (0.0-0.7) 10^3/uL Baso # (Auto) 0.0 (0.0-0.1) 10^3/uL Absolute Nucleated RBC 0.00 x10^3/uL Nucleated RBC % 0.0 /100WBC Sodium (135-145) mmol/L Potassium (3.5-5.0) mmol/L Chloride (101-111) mmol/L Carbon Dioxide (21-32) mmol/L Anion Gap (6-13) BUN (6-20) mg/dL Creatinine (0.4-1.0) mg/dL Estimated GFR (MDRD) (>89) Glucose (70-100) mg/dL POC Whole Bld Glucose 152 H 95 (70 - 100) mg/dL Calcium (8.5-10.3) mg/dL Blood Type Antibody Screen Crossmatch IS Only - Other Results/Comments Other Results/Comments: Left clavicle - mild tender. Less pain with shoulder motion Left hip - mild tender;less pain with hip rotation. Moves toes well. Sensation intact. Good cap filling. Sitting in chair eating breakfast. Assessment/Plan - Problem List (1) Closed left hip fracture Impression: Satis post op PLAN: To SNF. Continue PT: walker ambulate as tolerated -WBAT on left. May be limited in mobility due nto left clavicle fracture.. Ice to clavicle and sling as needed. Pt to assist with ambulation as well as AAROM of left shoulder. Qualifiers: Encounter type: subsequent encounter
--- NOTE | 2020-05-27 16:36 | PROVIDER PROGRESS NOTE ---
Assessment/Plan - Problem List (1) Closed left hip fracture Qualifiers: Encounter type: subsequent encounter Assessment/Plan: Patient is postop day 3 of left hip repair. Orthopedic following. They recommended weight bearing as tolerated. Follow-up in orthopedic clinic in 2 weeks for manish removal and new x-ray. PT OT evaluated patient and is treating patient. Initial plan had been for patient to go home with home health today. However the patient becomes hypoxic when taken off oxygen. Also her hemoglobin has steadily trickled down from 11.6-7.5 over the past 4 days. There is no source of bleeding. Consequently the patient is being kept overnight for further antibiotic treatment and blood transfusion. She was given 2 units of packed red blood cells today. Will reevaluate in the morning for discharge. (2) Diabetes mellitus Qualifiers: Diabetes mellitus type: type 2 Assessment/Plan: Assessment/Plan: Metformin held. Patient is on sliding scale insulin and Accu-Cheks. Carb controlled diet ordered. Gabapentin 300 mg p.o. twice daily ordered for diabetic neuropathy. (3) Hypertension Assessment/Plan: On metoprolol succinate 25 mg p.o. twice daily and diltiazem. (5) Restless leg syndrome Assessment/Plan: On Mirapex 0.375 mg p.o. every afternoon (6) Pneumonia Assessment/Plan: Patient required 2 L of oxygen via nasal cannula today. Chest x-ray 2 nights ago showed Diffuse interstitial prominence with increased patchy bibasilar opacities more pronounced in the right lung base. There was new trace right pleural effusion. Findings likely related to an infectious /inflammatory process with developing airspace disease/pneumonia. HCAP versus community acquired pneumonia. Patient's IV fluids were discontinued. Patient was given Lasix 40 mg IV x1. Patient was started on Zosyn 3.375 mg with loading dose given and continuous infusion afterwards. We will continue to monitor. Patient is on supplemental oxygen. Goal would be to wean patient off oxygen. If patient's respiratory status is improved tomorrow, will continue to discharge on Augmentin. (7) Closed left clavicular fracture Assessment/Plan: This happened at the same time as the patient's left femoral neck fracture. No intervention is required. Pain management as needed with Tylenol. (8) Anemia Assessment/Plan: 4 days ago at admission the patient's hemoglobin was 11.6. Today it is 7.5. There is no source of bleeding. Patient is also hypoxic once taken off supplemental oxygen. She drops into the 80s. The patient does not use oxygen at home. 2 units of packed red blood cells were ordered and transfused. Patient is also on supplemental iron. - Current Meds Current Meds: Current Medications Generic Name Dose Route Start Last Admin Trade Name Freq PRN Reason Stop Dose Admin Hydrocodone Bitart/Acetaminophen 1 tab 05/23/20 11:16 05/27/20 10:48 Hydrocod/Acetam 10 Mg/325 Mg Tablet PO 1 tab Q4HR PRN Administration Pain 8 to 10 Aspirin 325 mg 05/25/20 08:00 05/27/20 08:35 Aspirin 325 Mg Tablet PO 325 mg BIDWM STACY Administration Atorvastatin Calcium 20 mg 05/24/20 21:00 05/26/20 20:55 Atorvastatin 10 Mg Tablet PO 20 mg QPM STACY Administration Docusate Sodium 100 mg 05/24/20 22:26 05/26/20 09:06 Docusate Sodium 100 Mg Capsule PO 100 mg BID PRN Administration Constipation Docusate Sodium 250 - 500 mg 05/26/20 09:00 05/27/20 08:45 Docusate Sodium 250 Mg Capsule PO 250 mg DAILY STACY Administration Ferrous Sulfate 325 mg 05/26/20 11:00 05/27/20 08:35 Ferrous Sulfate 325 Mg Tablet PO 325 mg DAILYWM STACY Administration Gabapentin 300 mg 05/24/20 21:00 05/27/20 08:33 Gabapentin 300 Mg Capsule PO 300 mg BID STACY Administration Hydromorphone HCl 1 mg 05/23/20 13:51 05/26/20 14:17 Hydromorphone 1 Mg/Ml Carpuject IVP 1 mg Q3H PRN Administration PAIN Piperacillin Sod/Tazobactam 100 mls @ 25 mls/hr 05/26/20 19:30 05/27/20 14:49 Sod 3.375 gm/ Sodium Chloride IV 25 mls/hr Q8H STACY Administration Insulin Aspart 1 - 5 unit 05/25/20 08:00 05/27/20 12:02 Insulin Aspart 300 Unit/3 Ml Pen SUBQ 2 unit 0800,1200,1700,2100 STACY Administration Protocol Lorazepam 0.5 mg 05/24/20 12:48 05/24/20 13:57 Lorazepam 0.5 Mg Tablet PO 0.5 mg DAILY PRN Administration Cramp Metoprolol Succinate 25 mg 05/25/20 23:51 05/27/20 08:35 Metoprolol Succinate 25 Mg Tablet PO 25 mg BID STACY Administration Oxycodone HCl 5 mg 05/24/20 22:26 05/25/20 11:13 Oxycodone 5 Mg Tablet PO 5 mg Q4HR PRN Administration PAIN Pantoprazole Sodium 40 mg 05/24/20 07:00 05/27/20 06:54 Pantoprazole 40 Mg Vial IVP 40 mg QDAC STACY Administration Polyethylene Glycol 17 gm 05/26/20 09:00 05/27/20 08:27 Polyethylene Glycol 3350 17 Gm Packet PO 17 gm DAILY STACY Administration Pramipexole Dihydrochloride 0.375 mg 05/24/20 21:00 05/26/20 20:59 Pramipexole 0.25 Mg Tablet PO 0.375 mg QPM STACY Administration Senna 8.6 - 17.2 mg 05/26/20 09:00 05/27/20 08:35 Senna 8.6 Mg Tablet PO 8.6 mg DAILY STACY Administration Sodium Chloride 10 ml 05/23/20 11:16 05/27/20 06:54 Sodium Chloride Flush 0.9% 10 Ml Syringe IVP 10 ml PRN PRN Administration NEEDED PER PROVIDER ORDERS Sodium Chloride 10 ml 05/23/20 17:00 05/27/20 08:36 Sodium Chloride Flush 0.9% 10 Ml Syringe IVP 10 ml 0100,0900,1700 STACY Administration Sodium Chloride 10 ml 05/25/20 01:00 05/27/20 08:46 Sodium Chloride Flush 0.9% 10 Ml Syringe IVP 10 ml 0100,0900,1700 STACY Administration Sodium Chloride 10 ml 05/24/20 22:26 05/27/20 06:54 Sodium Chloride Flush 0.9% 10 Ml Syringe IVP 10 ml PRN PRN Administration NEEDED PER PROVIDER ORDERS - Lab Result Fish Bone Diagrams: 05/27/20 04:40 05/27/20 04:40 - Additional Planning My Orders: My Active Orders 05/26/20 19:30 Piperacillin/Tazobactam [Zosyn] 3.375 gm Sodium Chloride 0.9% Minibag [Normal Saline 0.9% Minibag] 100 ml IV Q8H 05/27/20 08:17 Transfuse RBCs Leukoreduced [RC] .ONCE 05/27/20 08:20 Transfuse RBCs Leukoreduced [RC] .ONCE 05/27/20 08:37 RBC, LEUKOREDUCED Stat TYPE AND SCREEN Stat 05/28/20 05:00 BMP - BASIC METABOLIC PANEL [CHEM] DAILYLAB CBC - COMP BLD CT W/AUTO DIFF [HEME] DAILYLAB Subjective - Subjective Patient Reports: Other (Donato continues to be significantly dyspneic once taken off oxygen. It is more noticeable with ambulation. Over the past 4 days her hemoglobin has steadily dropped from 11.6 down to 7.5. There is no site or source of blood loss. She denies any other complaints.) Objective Vital Signs: Vital Signs - 24 hr 05/26/20 05/26/20 05/27/20 16:35 20:36 00:00 Temperature 36.7 C 37.1 C Heart Rate Heart Rate [ 87 88 87 Brachial] Respiratory 18 18 16 Rate Blood Pressure Blood Pressure 101/57 L 97/50 L 121/62 [Left Brachial artery] O2 Saturation 93 97 99 05/27/20 05/27/20 05/27/20 04:47 06:53 08:00 Temperature 37.2 C 37.2 C 37.2 C Heart Rate Heart Rate [ 87 80 Brachial] Respiratory 18 18 Rate Blood Pressure Blood Pressure 108/53 L 120/80 [Left Brachial artery] O2 Saturation 96 93 05/27/20 05/27/20 05/27/20 11:05 11:15 11:25 Temperature 36.6 C 36.8 C 36.8 C Heart Rate 67 74 75 Heart Rate [ Brachial] Respiratory 16 20 20 Rate Blood Pressure 100/55 L 93/49 L 96/56 L Blood Pressure [Left Brachial artery] O2 Saturation 05/27/20 05/27/20 05/27/20 14:47 16:10 16:15 Temperature 36.7 C 37 C 36.9 C Heart Rate 96 80 83 Heart Rate [ Brachial] Respiratory 20 16 18 Rate Blood Pressure 121/66 119/60 109/65 Blood Pressure [Left Brachial artery] O2 Saturation 05/27/20 16:30 Temperature 37 C Heart Rate 84 Heart Rate [ Brachial] Respiratory 20 Rate Blood Pressure 128/71 Blood Pressure [Left Brachial artery] O2 Saturation Oxygen O2 Source Nasal cannula I&O (Last 24 Hrs): Intake and Output Totals x24h 05/25/20 05/26/20 05/27/20 23:59 23:59 23:59 Intake Total 4359.166 2603.333 1515 Output Total 1350 675 850 Balance 3009.166 1928.333 665 General: Alert, Oriented x3, Mild distress, Moderate distress HEENT: PERRLA, EOMI Neck: Supple, No JVD Neuro: Alert, Non Focal, Oriented Times 3 Cardiovascular: Regular rate, No murmurs Respiratory: Chest non-tender, Wheezes Abdomen: Normal bowel sounds, Soft Extremities: No clubbing, No edema Skin: No rashes - Results Results: Laboratory Results WBC 7.9 x10^3/uL (4.8-10.8) 05/27/20 04:40 RBC 2.46 10^6/uL (4.20-5.40) L 05/27/20 04:40 Hgb 7.5 g/dL (12.0-16.0) L 05/27/20 04:40 Hct 24.0 % (37.0-47.0) L 05/27/20 04:40 MCV 97.6 fL (81.0-99.0) 05/27/20 04:40 MCH 30.5 pg (27.0-31.0) 05/27/20 04:40 MCHC 31.3 g/dL (32.0-36.0) L 05/27/20 04:40 RDW 13.4 % (12.0-15.0) 05/27/20 04:40 Plt Count 165 10^3/uL (130-450) 05/27/20 04:40 MPV 10.0 fL (7.9-10.8) 05/27/20 04:40 Neut # (Auto) 4.6 10^3/uL (1.5-6.6) 05/27/20 04:40 Lymph # (Auto) 1.9 10^3/uL (1.5-3.5) 05/27/20 04:40 [place] # (Auto) 0.9 10^3/uL (0.0-1.0) 05/27/20 04:40 Eos # (Auto) 0.4 10^3/uL (0.0-0.7) 05/27/20 04:40 Baso # (Auto) 0.0 10^3/uL (0.0-0.1) 05/27/20 04:40 Absolute Nucleated RBC 0.00 x10^3/uL 05/27/20 04:40 Nucleated RBC % 0.0 /100WBC 05/27/20 04:40 PT 11.7 secs (9.9-12.6) 05/23/20 10:29 INR 1.0 (0.8-1.2) 05/23/20 10:29 Sodium 127 mmol/L (135-145) L 05/27/20 04:40 Potassium 4.2 mmol/L (3.5-5.0) 05/27/20 04:40 Chloride 97 mmol/L (101-111) L 05/27/20 04:40 Carbon Dioxide 24 mmol/L (21-32) 05/27/20 04:40 Anion Gap 6.0 (6-13) 05/27/20 04:40 BUN 11 mg/dL (6-20) 05/27/20 04:40 Creatinine 0.8 mg/dL (0.4-1.0) 05/27/20 04:40 Estimated GFR (MDRD) 71 (>89) L 05/27/20 04:40 Glucose 129 mg/dL (70-100) H 05/27/20 04:40 POC Whole Bld Glucose 184 mg/dL (70 - 100) H 05/27/20 11:29 Calcium 7.8 mg/dL (8.5-10.3) L 05/27/20 04:40 Total Bilirubin 0.6 mg/dL (0.2-1.0) 05/23/20 10:29 AST 21 IU/L (10-42) 05/23/20 10:29 ALT 13 IU/L (10-60) 05/23/20 10:29 Alkaline Phosphatase 59 IU/L (42-121) 05/23/20 10:29 Total Protein 6.5 g/dL (6.7-8.2) L 05/23/20 10:29 Albumin 3.8 g/dL (3.2-5.5) 05/23/20 10:29 Globulin 2.7 g/dL (2.1-4.2) 05/23/20 10:29 Albumin/Globulin Ratio 1.4 (1.0-2.2) 05/23/20 10:29 Lipase 29 U/L (22-51) 05/23/20 10:29 Nasal Adenovirus (PCR) NOT DETECTED 05/23/20 12:09 Nasal B. parapertussis DNA (PCR) NOT DETECTED 05/23/20 12:09 Nasal Coronavir 229E PCR NOT DETECTED 05/23/20 12:09 Nasal Coronavir HKU1 PCR NOT DETECTED 05/23/20 12:09 Nasal Coronavir NL63 PCR NOT DETECTED 05/23/20 12:09 Nasal Coronavir OC43 PCR NOT DETECTED 05/23/20 12:09 Nasal Enterovir/Rhinovir PCR NOT DETECTED 05/23/20 12:09 Nasal Influenza B PCR NOT DETECTED 05/23/20 12:09 Nasal Influenza A PCR NOT DETECTED 05/23/20 12:09 Nasal Parainfluen 1 PCR NOT DETECTED 05/23/20 12:09 Nasal Parainfluen 2 PCR NOT DETECTED 05/23/20 12:09 Nasal Parainfluen 3 PCR NOT DETECTED 05/23/20 12:09 Nasal Parainfluen 4 PCR NOT DETECTED 05/23/20 12:09 Nasal RSV (PCR) NOT DETECTED 05/23/20 12:09 Nasal B.pertussis DNA PCR NOT DETECTED 05/23/20 12:09 Nasal C.pneumoniae (PCR) NOT DETECTED 05/23/20 12:09 [place] Human Metapneumo PCR NOT DETECTED 05/23/20 12:09 Nasal M.pneumoniae (PCR) NOT DETECTED 05/23/20 12:09 Nasal SARS-CoV-2 (PCR) NOT DETECTED 05/23/20 12:09 Blood Type O POSITIVE 05/27/20 08:37 Antibody Screen NEGATIVE 05/27/20 08:37 Crossmatch IS Only See Detail 05/27/20 08:37 - Procedures Procedures: Procedures DESTRUCT-KNEE LESION NEC (12/13/13) EXCISION OF DESCENDING COLON, ENDO (03/02/20) EXCISION OF TRANSVERSE COLON, ENDO (03/02/20) LOC EXC LES TIBIA/FIBULA (12/13/13) TOTAL KNEE REPLACEMENT (12/28/12) ABX Reporting Has patient been on IV antibiotics over the past 48 hours?: Yes
[2020-05-27] MEDS: PRAMIPEXOLE 0.25 MG TABLET PO SCH (20:52)
[2020-05-27] MEDS: ATORVASTATIN 10 MG TABLET PO SCH (20:52)
[2020-05-28] MEDS: SODIUM CHLORIDE FLUSH 0.9% 10 ML SYRINGE IVP SCH ×4 (00:30→08:23)
[2020-05-28] MEDS: PIPERACILLIN/TAZOBACTAM 3.375 GM in SODIUM CHLORIDE 0.9% MINIBAG 100 ML IV SCH (04:33)
[2020-05-28] MEDS: SODIUM CHLORIDE FLUSH 0.9% 10 ML SYRINGE IVP PRN ×2 (04:33→06:04)
[2020-05-28 05:33] LABS: BASOPHILS % (AUTO) 0.5 %; EOSINOPHILS # (AUTO) 0.5 10^3/uL (0.0-0.7); EOSINOPHILS % (AUTO) 7.4 %; HGB - HEMOGLOBIN 9.7 g/dL (12.0-16.0); LYMPHOCYTES % (AUTO) 32.7 %; MEAN CORPUSCULAR HEMOGLOBIN 30.7 pg (27.0-31.0); MEAN CORPUSCULAR HGB CONC 32.4 g/dL (32.0-36.0); MEAN CORPUSCULAR VOLUME 94.6 fL (81.0-99.0); MEAN PLATELET VOLUME 9.8 fL (7.9-10.8); MONOCYTES # (AUTO) 0.8 10^3/uL (0.0-1.0); MONOCYTES % (AUTO) 13.6 %; NEUTROPHILS # (AUTO) 2.8 10^3/uL (1.5-6.6); NEUTROPHILS % (AUTO) 45.2 %; PLT - PLATELET COUNT 180 10^3/uL (130-450); RED BLOOD COUNT 3.16 10^6/uL (4.20-5.40); RED CELL DISTRIBUTION WIDTH 13.8 % (12.0-15.0); WHITE BLOOD COUNT 6.2 x10^3/uL (4.8-10.8)
[2020-05-28 05:47] LABS: CALCIUM 8.2 mg/dL (8.5-10.3); CREATININE 0.8 mg/dL (0.4-1.0)
[2020-05-28] MEDS: PANTOPRAZOLE 40 MG VIAL IVP SCH (06:04)
[2020-05-28] MEDS ORDERED: MAGNESIUM HYDROXIDE 2,400 MG/30 ML UDC PO ONE (08:00)
[2020-05-28] MEDS: DOCUSATE SODIUM 250 MG CAPSULE PO SCH (08:21)
[2020-05-28] MEDS: ASPIRIN 325 MG TABLET PO SCH (08:21)
[2020-05-28] MEDS: FERROUS SULFATE 325 MG TABLET PO SCH (08:21)
[2020-05-28] MEDS: METOPROLOL SUCCINATE 25 MG TABLET PO SCH (08:22)
[2020-05-28] MEDS: polyethylene glycoL 3350 17 GM PACKET PO SCH (08:22)
[2020-05-28] MEDS: GABAPENTIN 300 MG CAPSULE PO SCH (08:22)
[2020-05-28] MEDS: SENNA 8.6 MG TABLET PO SCH (08:22)
[2020-05-28] MEDS: HYDROcod/ACETAM 10 MG/325 MG TABLET PO PRN (08:23)
[2020-05-28] MEDS: INSULIN ASPART 300 UNIT/3 ML PEN SUBQ SCH ×2 (08:23→11:58)
--- NOTE | 2020-05-28 11:25 | PROVIDER PROGRESS NOTE ---
Subjective - Prog Note Date Prog Note Date: 05/28/20 Prog Note Time: 11:23 - Subjective Pt reports feeling: Improved Objective - Vital Signs/Intake & Output Vital Signs: Vital Signs x48h Temp Pulse Resp BP Pulse Ox 05/28/20 07:52 36.8 C 92 16 134/69 H 92 05/28/20 05:29 36.8 C 76 20 112/65 92 Intake & Output: Intake & Output 05/25/20 05/26/20 05/27/20 05/28/20 23:59 23:59 23:59 23:59 Intake Total 4359.166 2603.333 2720 715 Output Total 9909 759 9209 500 Balance 3009.166 1928.333 670 215 - Lab Results Fish Bones: 05/28/20 04:47 05/28/20 04:47 Other Labs: Lab Results x24hrs 05/28/20 05/28/20 05/28/20 Range/Units 07:48 04:47 04:47 WBC 6.2 (4.8-10.8) x10^3/uL RBC 3.16 L (4.20-5.40) 10^6/uL Hgb 9.7 L (12.0-16.0) g/dL Hct 29.9 L (37.0-47.0) % MCV 94.6 (81.0-99.0) fL MCH 30.7 (27.0-31.0) pg MCHC 32.4 (32.0-36.0) g/dL RDW 13.8 (12.0-15.0) % Plt Count 180 (130-450) 10^3/uL MPV 9.8 (7.9-10.8) fL Neut # (Auto) 2.8 (1.5-6.6) 10^3/uL Lymph # (Auto) 2.0 (1.5-3.5) 10^3/uL Gregory # (Auto) 0.8 (0.0-1.0) 10^3/uL Eos # (Auto) 0.5 (0.0-0.7) 10^3/uL Baso # (Auto) 0.0 (0.0-0.1) 10^3/uL Absolute Nucleated RBC 0.00 x10^3/uL Nucleated RBC % 0.0 /100WBC Sodium 130 L (135-145) mmol/L Potassium 3.8 (3.5-5.0) mmol/L Chloride 94 L (101-111) mmol/L Carbon Dioxide 27 (21-32) mmol/L Anion Gap 9.0 (6-13) BUN 12 (6-20) mg/dL Creatinine 0.8 (0.4-1.0) mg/dL Estimated GFR (MDRD) 71 L (>89) Glucose 116 H (70-100) mg/dL POC Whole Bld Glucose 135 H (70 - 100) mg/dL Calcium 8.2 L (8.5-10.3) mg/dL Blood Type Antibody Screen Crossmatch IS Only 05/27/20 05/27/20 05/27/20 Range/Units 21:03 11:29 08:37 WBC (4.8-10.8) x10^3/uL RBC (4.20-5.40) 10^6/uL Hgb (12.0-16.0) g/dL Hct (37.0-47.0) % MCV (81.0-99.0) fL MCH (27.0-31.0) pg MCHC (32.0-36.0) g/dL RDW (12.0-15.0) % Plt Count (130-450) 10^3/uL MPV (7.9-10.8) fL Neut # (Auto) (1.5-6.6) 10^3/uL Lymph # (Auto) (1.5-3.5) 10^3/uL [place] # (Auto) (0.0-1.0) 10^3/uL Eos # (Auto) (0.0-0.7) 10^3/uL Baso # (Auto) (0.0-0.1) 10^3/uL Absolute Nucleated RBC x10^3/uL Nucleated RBC % /100WBC Sodium (135-145) mmol/L Potassium (3.5-5.0) mmol/L Chloride (101-111) mmol/L Carbon Dioxide (21-32) mmol/L Anion Gap (6-13) BUN (6-20) mg/dL Creatinine (0.4-1.0) mg/dL Estimated GFR (MDRD) (>89) Glucose (70-100) mg/dL POC Whole Bld Glucose 129 H 184 H (70 - 100) mg/dL Calcium (8.5-10.3) mg/dL Blood Type O POSITIVE Antibody Screen NEGATIVE Crossmatch IS Only See Detail - Other Results/Comments Other Results/Comments: EXAM: Wound benign. N/V ok distally. Up in PT - WBAT on right Assessment/Plan - Problem List (1) Closed left hip fracture Impression: [place] Post op PLAN: D/C home today. Follow up in clinic in 2 weeks for XR and manish out. Qualifiers: Encounter type: subsequent encounter
[2020-05-28] MEDS: oxyCODONE 5 MG TABLET PO PRN (11:58)
[2020-05-28 12:24] VITALS: BP 122/65
== END 2020-05-28 13:50 | disposition home health service (06) | DRG 957 ==
LOC: ED 09:09 → MS3 11:16
PROVIDERS: ADMIT Internal Medicine; ATTEND Internal Medicine
PROC: 0PHB04Z Insertion of Internal Fixation Device into Left Clavicle, Open Approach (ICD-10-PCS; principal; 2020-05-24 07:30)
PROC: 30233N1 Transfusion of Nonautologous Red Blood Cells into Peripheral Vein, Percutaneous Approach (ICD-10-PCS; 2020-05-27)
DX: S72.012A Unspecified intracapsular fracture of left femur, initial encounter for closed fracture (principal); J18.9 Pneumonia, unspecified organism; S32.592A Other specified fracture of left pubis, initial encounter for closed fracture; S32.19XA Other fracture of sacrum, initial encounter for closed fracture; D62 Acute posthemorrhagic anemia; S42.035A Nondisplaced fracture of lateral end of left clavicle, initial encounter for closed fracture; W01.0XXA Fall on same level from slipping, tripping and stumbling without subsequent striking against object, initial encounter; Y92.480 Sidewalk as the place of occurrence of the external cause; Y95 Nosocomial condition; E11.9 Type 2 diabetes mellitus without complications; I10 Essential (primary) hypertension; E78.5 Hyperlipidemia, unspecified; D64.89 Other specified anemias; M19.90 Unspecified osteoarthritis, unspecified site; M81.0 Age-related osteoporosis without current pathological fracture; G25.81 Restless legs syndrome; Z96.659 Presence of unspecified artificial knee joint; Z87.891 Personal history of nicotine dependence; Z79.82 Long term (current) use of aspirin; Z79.84 Long term (current) use of oral hypoglycemic drugs; Z79.51 Long term (current) use of inhaled steroids; Z79.899 Other long term (current) drug therapy
CPT/HCPCS: 36415; 71045; 72192; 73030; 73502; 80048; 80053; 83690; 85025; 85610; 86850; 86900; 86901; 86920; 87631; 93005; 96374; 97116; 97161; 97166; 97530; 99283; 99285; A9270; J0690; J1170; J1815; J7120; P9016; 0202U; 90686

== ENCOUNTER 2020-07-10 08:00 | Outpatient (CLI) | payer MEDICARE ==
[2020-07-10 18:08] LABS: BASOPHILS % (AUTO) 0.4 %; EOSINOPHILS # (AUTO) 0.1 10^3/uL (0.0-0.7); EOSINOPHILS % (AUTO) 2.1 %; HCT - HEMATOCRIT 35.5 % (37.0-47.0); MEAN CORPUSCULAR HEMOGLOBIN 30.6 pg (27.0-31.0); MEAN CORPUSCULAR HGB CONC 33.8 g/dL (32.0-36.0); MEAN CORPUSCULAR VOLUME 90.6 fL (81.0-99.0); MEAN PLATELET VOLUME 8.7 fL (7.9-10.8); MONOCYTES # (AUTO) 0.6 10^3/uL (0.0-1.0); MONOCYTES % (AUTO) 8.9 %; PLT - PLATELET COUNT 320 10^3/uL (130-450); RED BLOOD COUNT 3.92 10^6/uL (4.20-5.40); RED CELL DISTRIBUTION WIDTH 15.1 % (12.0-15.0); WHITE BLOOD COUNT 6.8 x10^3/uL (4.8-10.8)
[2020-07-10 18:44] LABS: ALBUMIN/GLOBULIN RATIO 1.4 (1.0-2.2); ALKALINE PHOSPHATASE 107 IU/L (42-121); ALT ALANINE AMINOTRANSFERASE 14 IU/L (10-60); AST ASPARTATE AMINOTRANSFERASE 18 IU/L (10-42); BILIRUBIN,TOTAL 0.8 mg/dL (0.2-1.0); BUN - BLOOD UREA NITROGEN 11 mg/dL (6-20); CALCIUM 8.9 mg/dL (8.5-10.3); CARBON DIOXIDE - CO2 25 mmol/L (21-32); CHOL/HDL RATIO 2.5 (<4.4); CHOLESTEROL 121 mg/dL; CREATININE 0.5 mg/dL (0.4-1.0); GFR - MDRD 123 (>89); GLUCOSE 125 mg/dL (70-100); HDL CHOLESTEROL 49 mg/dL; LDL CHOLESTEROL,CALCULATED 49 mg/dL; POTASSIUM 4.9 mmol/L (3.5-5.0); TOTAL PROTEIN 6.8 g/dL (6.7-8.2); TRIGLYCERIDES 113 mg/dL; VLDL CHOLESTEROL 23 mg/dL
[2020-07-10 18:54] LABS: CHLORIDE 80 mmol/L (101-111); SODIUM 116 mmol/L (135-145)
[2020-07-10 20:37] LABS: ESTIMATED AVERAGE GLUCOSE 128 mg/dL (70-100); HEMOGLOBIN A1c% 6.1 % (4.27-6.07)
== END 2020-07-10 23:59 | disposition home or self-care (01) ==
LOC: LAB.WCP 08:00
PROVIDERS: ATTEND Family Medicine
DX: I10 Essential (primary) hypertension (principal); E11.9 Type 2 diabetes mellitus without complications
CPT/HCPCS: 36415; 80053; 80061; 83036; 83721; 85025

== ENCOUNTER 2020-07-11 08:00 | Outpatient (CLI) | payer MEDICARE ==
[2020-07-11 12:27] LABS: ALBUMIN 3.8 g/dL (3.2-5.5); ALBUMIN/GLOBULIN RATIO 1.3 (1.0-2.2); BILIRUBIN,TOTAL 0.6 mg/dL (0.2-1.0); CALCIUM 8.9 mg/dL (8.5-10.3); CREATININE 0.6 mg/dL (0.4-1.0); POTASSIUM 4.6 mmol/L (3.5-5.0); TOTAL PROTEIN 6.8 g/dL (6.7-8.2)
== END 2020-07-11 08:01 | disposition home or self-care (01) ==
LOC: LAB.WCP 08:00
PROVIDERS: ATTEND Family Medicine
DX: E87.1 Hypo-osmolality and hyponatremia (principal)
CPT/HCPCS: 36415; 80053; 83930

== ENCOUNTER 2020-07-13 08:00 | Outpatient (CLI) | payer MEDICARE ==
[2020-07-13 12:57] LABS: CALCIUM 9.3 mg/dL (8.5-10.3); CREATININE 0.6 mg/dL (0.4-1.0); POTASSIUM 4.4 mmol/L (3.5-5.0)
== END 2020-07-13 23:59 | disposition home or self-care (01) ==
LOC: LAB.WCP 08:00
PROVIDERS: ATTEND Family Medicine
DX: E87.1 Hypo-osmolality and hyponatremia (principal)
CPT/HCPCS: 36415; 80048; 83935; 84300

== ENCOUNTER 2020-07-14 09:42 | Outpatient (CLI) | payer MEDICARE ==
--- NOTE | 2020-07-14 16:31 | XRAY Report ---
PROCEDURE: Hip w/Pelvis 2-3V LT INDICATIONS: LEFT HIP FRACTURE TECHNIQUE: AP pelvis with lateral view(s) of the bilateral hip(s). COMPARISON: Radiographs 05/23/2020. CT dated 05/23/2020.. FINDINGS: Screw fixation of the proximal left femur in expected alignment. The hardware appears intact. Soft ti ssues: The visualized bowel gas pattern is normal. No suspicious soft tissue calcifications. Spondy losis and facet arthropathy. Background moderate bilateral hip joint degeneration. Redemonstrated com minuted fracture of the left pubic body. Left sacral alar fracture is better seen on the comparison C T. IMPRESSION: Expected postoperative alignment. Reviewed by: Jayden Gonzalez MD on 07/14/2020 4:29 PM PST Approved by: Jayden Gonzalez MD on 07/14/2020 4:29 PM PST Station ID: [id number]
--- NOTE | 2020-07-14 16:34 | XRAY Report ---
PROCEDURE: Clavicle LT INDICATIONS: LT CLAVICLE FRACTURE TECHNIQUE: 2 views of the clavicle were acquired. COMPARISON: 05/23/2020 shoulder radiographs. FINDINGS: No change in alignment of the lateral clavicle. Moderate left shoulder joint degeneration Soft tissues: No suspicious soft tissue calcifications. IMPRESSION: No change in alignment Reviewed by: Jayden Gonzalez MD on 07/14/2020 4:32 PM PST Approved by: Jayden Gonzalez MD on 07/14/2020 4:32 PM PST Station ID: [id number]
== END 2020-07-14 23:59 | disposition home or self-care (01) ==
LOC: DI.N 09:42
PROVIDERS: ATTEND Physician Assistant
DX: S42.032D Displaced fracture of lateral end of left clavicle, subsequent encounter for fracture with routine healing (principal); S72.92XD Unspecified fracture of left femur, subsequent encounter for closed fracture with routine healing

== ENCOUNTER 2020-07-20 08:00 | Outpatient (CLI) | payer MEDICARE ==
[2020-07-20 14:23] LABS: CALCIUM 9.2 mg/dL (8.5-10.3); CREATININE 0.6 mg/dL (0.4-1.0); POTASSIUM 4.1 mmol/L (3.5-5.0)
== END 2020-07-20 23:59 | disposition home or self-care (01) ==
LOC: LAB.WCP 08:00
PROVIDERS: ATTEND Family Medicine
DX: E87.1 Hypo-osmolality and hyponatremia (principal)
CPT/HCPCS: 36415; 80048

== ENCOUNTER 2020-07-28 07:36 | Outpatient (CLI) | payer MEDICARE ==
[2020-07-28 13:20] LABS: CREATININE 0.7 mg/dL (0.4-1.0); POTASSIUM 3.8 mmol/L (3.5-5.0)
== END 2020-07-28 23:59 | disposition home or self-care (01) ==
LOC: LAB.WCP 07:36
PROVIDERS: ATTEND Family Medicine
DX: E87.1 Hypo-osmolality and hyponatremia (principal)
CPT/HCPCS: 36415; 80048; 83930; 83935; 84300

== ENCOUNTER 2020-08-09 08:00 | Outpatient (CLI) | payer MEDICARE ==
[2020-08-09 12:34] LABS: CALCIUM 9.3 mg/dL (8.5-10.3); CREATININE 0.7 mg/dL (0.4-1.0); POTASSIUM 4.1 mmol/L (3.5-5.0)
== END 2020-08-09 23:59 | disposition home or self-care (01) ==
LOC: LAB.WCP 08:00
PROVIDERS: ATTEND Family Medicine
DX: E87.1 Hypo-osmolality and hyponatremia (principal)
CPT/HCPCS: 36415; 80048

== ENCOUNTER 2020-08-14 09:44 | Outpatient (CLI) | payer MEDICARE ==
--- NOTE | 2020-08-14 13:26 | DEXA Report ---
PROCEDURE: Dexa Spine and/or Hip INDICATIONS: BONE DISORDER TECHNIQUE: Dual energy x-ray absorptiometry (DXA) was performed on a [employer] System. Regions measur ed are the AP Spine, femoral neck, and if needed forearm. COMPARISON: None. FINDINGS: Lumbar Spine: Bone Mineral Density 1.117 g/cm/cm,T score -0.5, normal Left Hip: Bone Mineral Density 0.970 g/cm/cm,T score -0.3, normal Left Femoral Neck: Bone Mineral Density 0.962 g/cm/cm, T score -0.5, normal (T score greater or equal to -1.0: NORMAL) (T score from -1.1 to -2.4: OSTEOPENIA) (T score less than or equal to -2.5 to: OSTEOPOROSIS) Impression: Normal bone mineral density. Patients with diagnosis of osteoporosis or osteopenia should have regular bone mineral density assess ment. For those eligible for Medicare, routine testing is allowed once every 2 years. Testing frequ ency can be increased for patients who have rapidly progressing disease or for those who are receivin g medical therapy to restore bone mass. Reviewed by: Bridget Bahena MD, PhD on 08/14/2020 1:25 PM PDT Approved by: Bridget Bahena MD, PhD on 08/14/2020 1:25 PM PDT Station ID: [id number]
--- OUTSIDE RECORDS SUMMARY | 2020-08-16 03:09 | EXTERNAL MEDICAL SUMMARY RPT | Continuity of Care Document ---
:1950 Demographics Phone Unavailable Preferred Language Unknown Marital Status Unknown Spiritism Affiliation Unknown Race Unknown Ethnic Group Unknown Author Organization [facility] Address [address] [phone] Phone Problems date description facility [id number] Unspecified fracture of left femur, [facility] initial encounter for closed fracture Social History date description facility [id number]
== END 2020-08-14 09:45 | disposition home or self-care (01) ==
LOC: DI 09:44
PROVIDERS: ATTEND Family Medicine
DX: M89.9 Disorder of bone, unspecified (principal)

== ENCOUNTER 2020-09-13 07:00 | Outpatient (CLI) | payer MEDICARE ==
[2020-09-13 12:12] LABS: HCT - HEMATOCRIT 36.3 % (37.0-47.0); HGB - HEMOGLOBIN 11.8 g/dL (12.0-16.0); MEAN CORPUSCULAR HEMOGLOBIN 30.6 pg (27.0-31.0); MEAN CORPUSCULAR HGB CONC 32.5 g/dL (32.0-36.0); MEAN CORPUSCULAR VOLUME 94.3 fL (81.0-99.0); MEAN PLATELET VOLUME 9.5 fL (7.9-10.8); RED BLOOD COUNT 3.85 10^6/uL (4.20-5.40); RED CELL DISTRIBUTION WIDTH 13.8 % (12.0-15.0)
[2020-09-13 12:50] LABS: CALCIUM 9.3 mg/dL (8.5-10.3); CREATININE 0.8 mg/dL (0.4-1.0); POTASSIUM 4.4 mmol/L (3.5-5.0)
== END 2020-09-13 23:59 | disposition home or self-care (01) ==
LOC: LAB.WCP 07:00
PROVIDERS: ATTEND Family Medicine
DX: D64.9 Anemia, unspecified (principal); E22.2 Syndrome of inappropriate secretion of antidiuretic hormone; E87.1 Hypo-osmolality and hyponatremia
CPT/HCPCS: 36415; 80048; 85027

== ENCOUNTER 2020-11-03 08:33 | Outpatient (CLI) | payer MEDICARE ==
[2020-11-03 11:56] LABS: BASOPHILS % (AUTO) 0.4 %; EOSINOPHILS # (AUTO) 0.2 10^3/uL (0.0-0.7); EOSINOPHILS % (AUTO) 3.3 %; HCT - HEMATOCRIT 34.6 % (37.0-47.0); HGB - HEMOGLOBIN 11.4 g/dL (12.0-16.0); LYMPHOCYTES # (AUTO) 2.5 10^3/uL (1.5-3.5); LYMPHOCYTES % (AUTO) 35.7 %; MEAN CORPUSCULAR HEMOGLOBIN 30.6 pg (27.0-31.0); MEAN CORPUSCULAR HGB CONC 32.9 g/dL (32.0-36.0); MEAN PLATELET VOLUME 9.6 fL (7.9-10.8); MONOCYTES # (AUTO) 0.7 10^3/uL (0.0-1.0); MONOCYTES % (AUTO) 9.6 %; NEUTROPHILS # (AUTO) 3.5 10^3/uL (1.5-6.6); NEUTROPHILS % (AUTO) 50.7 %; PLT - PLATELET COUNT 294 10^3/uL (130-450); RED BLOOD COUNT 3.72 10^6/uL (4.20-5.40); RED CELL DISTRIBUTION WIDTH 13.3 % (12.0-15.0)
[2020-11-03 12:29] LABS: THYROID STIMULATING HORMONE 2.85 uIU/mL (0.34-5.60)
[2020-11-03 12:33] LABS: CREATININE,URINE 16.6 mg/dL; ESTIMATED AVERAGE GLUCOSE 126 mg/dL (70-100); MICROALBUM/CREATININE RATIO,UR 120.5 ug/mg (<30.0)
[2020-11-03 12:48] LABS: % IRON SATURATION 15 % (20-50); ALBUMIN 4.3 g/dL (3.2-5.5); ALBUMIN/GLOBULIN RATIO 1.4 (1.0-2.2); ALKALINE PHOSPHATASE 72 IU/L (42-121); ALT ALANINE AMINOTRANSFERASE 14 IU/L (10-60); AST ASPARTATE AMINOTRANSFERASE 16 IU/L (10-42); BILIRUBIN,TOTAL 0.5 mg/dL (0.2-1.0); BUN - BLOOD UREA NITROGEN 13 mg/dL (6-20); CALCIUM 9.4 mg/dL (8.5-10.3); CARBON DIOXIDE - CO2 27 mmol/L (21-32); CHLORIDE 86 mmol/L (101-111); CHOL/HDL RATIO 2.8 (<4.4); CHOLESTEROL 131 mg/dL; CREATININE 0.9 mg/dL (0.4-1.0); GFR - MDRD 62 (>89); GLUCOSE 122 mg/dL (70-100); HDL CHOLESTEROL 47 mg/dL; IRON 46 ug/dL (28-170); LDL CHOLESTEROL,CALCULATED 59 mg/dL; LDL/HDL RATIO 1.3 (<4.4); SODIUM 124 mmol/L (135-145); TOTAL IRON BINDING CAPACITY 315 ug/dL (250-450); TOTAL PROTEIN 7.4 g/dL (6.7-8.2); TRANSFERRIN 225 mg/dL (192-382); TRIGLYCERIDES 123 mg/dL; VLDL CHOLESTEROL 25 mg/dL
== END 2020-11-03 08:34 | disposition home or self-care (01) ==
LOC: LAB.N 08:33
PROVIDERS: ATTEND Family Medicine
DX: E87.1 Hypo-osmolality and hyponatremia (principal); E78.5 Hyperlipidemia, unspecified; E11.9 Type 2 diabetes mellitus without complications; D64.9 Anemia, unspecified
CPT/HCPCS: 36415; 80053; 80061; 82043; 82570; 82728; 83036; 83540; 83721; 84443; 84466; 85025

== ENCOUNTER 2020-11-03 08:43 | Outpatient (CLI) | payer MEDICARE ==
--- NOTE | 2020-11-03 10:04 | XRAY Report ---
PROCEDURE: Knee 4 View LT INDICATIONS: ARTHRITIS, LEFT KNEE TECHNIQUE: 4 views of the left knee(s) were acquired. COMPARISON: None. FINDINGS: Bones: No fractures or dislocations. Moderate tricompartmental osteoarthritis is seen more prominen t in lateral femoral tibial compartment. No patella subluxation. No suspicious bony lesions. Soft tissues: No significant joint effusion. No suspicious soft tissue calcifications. IMPRESSION: Moderate tricompartmental osteoarthritis more prominent in lateral femoral tibial compar tment. No fracture or dislocation. No significant joint effusion. Reviewed by: Francisco Suárez MD on 11/03/2020 10:02 AM PDT Approved by: Francisco Suárez MD on 11/03/2020 10:02 AM PDT Station ID: [id number]
== END 2020-11-03 08:44 | disposition home or self-care (01) ==
LOC: DI.N 08:43
PROVIDERS: ATTEND Family Medicine
DX: M17.12 Unilateral primary osteoarthritis, left knee (principal); E87.1 Hypo-osmolality and hyponatremia; E87.5 Hyperkalemia; E11.9 Type 2 diabetes mellitus without complications; D64.9 Anemia, unspecified
CPT/HCPCS: 36415; 80053; 80061; 82043; 82570; 82728; 83036; 83540; 83721; 84443; 84466; 85025

== ENCOUNTER 2020-11-14 07:22 | Outpatient (CLI) | payer MEDICARE ==
--- NOTE | 2020-11-14 14:28 | XRAY Report ---
PROCEDURE: Hip w/Pelvis 1V LT INDICATIONS: DISPLACED FX OF BASE OF NECK OF L FEMUR TECHNIQUE: AP pelvis with lateral view(s) of the left hip(s). COMPARISON: X-ray hip/pelvis 07/14/2020 FINDINGS: Bones: No fractures or dislocations. Pelvic ring appears intact. No suspicious bony lesions. Stab le appearance of left femoral pin fixation. Hardware is intact without evidence of hardware fracture or periprosthetic lucency. Moderate bilateral degenerative hip joint space narrowing is present. Prev iously noted left sacral Sravanthi fracture is again better appreciated on prior CT. Soft tissues: The visualized bowel gas pattern is normal. No suspicious soft tissue calcifications. IMPRESSION: Stable appearance of left hip fixation. No superimposed acute fractures identified. Reviewed by: Sarah Vallejo MD on 11/14/2020 2:27 PM PDT Approved by: Sarah Vallejo MD on 11/14/2020 2:27 PM PDT Station ID: [id number]
== END 2020-11-14 23:59 | disposition home or self-care (01) ==
LOC: DI.N 07:22
PROVIDERS: ATTEND Physician Assistant
DX: S72.92XE Unspecified fracture of left femur, subsequent encounter for open fracture type I or II with routine healing (principal)

== ENCOUNTER 2021-03-29 09:44 | Outpatient (CLI) | payer MEDICARE ==
--- NOTE | 2021-03-29 12:33 | CT Report ---
PROCEDURE: Low Dose Lung Cancer Screen INDICATIONS: NICOTINE ADDICTION IN REMISSION TECHNIQUE: Noncontrast low-dose 5 mm thick sections acquired from the pulmonary apices to the posterior costophr enic angles. 7 mm thick coronal and sagittal MIP reformats were then acquired. For radiation dose r eduction, the following was used: automated exposure control, adjustment of mA and/or kV according t o patient size. COMPARISON: None. FINDINGS: Lungs and pleura: Diffuse peribronchial cuffing suggestive of nonspecific bronchitis and/or reactive airways disease. Scattered subsegmental scarring/atelectasis. No acute consolidation. Bilateral uppe r lobe scattered pleural blebs. Diffuse reticular subpleural opacities. Possible early honeycombing s een in the anterior left upper lobe although technically indeterminate at this time. Pleura: No pleural effusion or pneumothorax. Heart: Normal size. No pericardial effusion. There is moderate coronary artery calcification Lymph nodes: Normal. Thyroid: Unremarkable Aorta: Normal Pulmonary arteries: Normal. Esophagus: Normal. Bones: Diffuse spondolytic changes and facet arthropathy. No compression fracture. Upper abdomen: Normal. IMPRESSION: No suspicious pulmonary nodules. Lung-RADS 1. Recommend screening lung CT in 12 months. Moderate coronary atherosclerosis. Reviewed by: Jayden Gonzalez MD on 03/29/2021 12:32 PM PST Approved by: Jayden Gonzalez MD on 03/29/2021 12:32 PM PST Station ID: [id number]
== END 2021-03-29 09:45 | disposition home or self-care (01) ==
LOC: DI 09:44
PROVIDERS: ATTEND Family Medicine
DX: Z12.2 Encounter for screening for malignant neoplasm of respiratory organs (principal); F17.201 Nicotine dependence, unspecified, in remission; I25.10 Atherosclerotic heart disease of native coronary artery without angina pectoris

== ENCOUNTER 2021-05-22 08:00 | Outpatient (CLI) | payer MEDICARE ==
[2021-05-22 12:02] LABS: BASOPHILS % (AUTO) 0.5 %; EOSINOPHILS # (AUTO) 0.4 10^3/uL (0.0-0.7); HGB - HEMOGLOBIN 12.1 g/dL (12.0-16.0); LYMPHOCYTES # (AUTO) 2.5 10^3/uL (1.5-3.5); LYMPHOCYTES % (AUTO) 39.4 %; MEAN CORPUSCULAR HEMOGLOBIN 30.7 pg (27.0-31.0); MEAN CORPUSCULAR HGB CONC 32.7 g/dL (32.0-36.0); MEAN CORPUSCULAR VOLUME 93.9 fL (81.0-99.0); MEAN PLATELET VOLUME 9.8 fL (7.9-10.8); MONOCYTES # (AUTO) 0.6 10^3/uL (0.0-1.0); NEUTROPHILS # (AUTO) 2.9 10^3/uL (1.5-6.6); NEUTROPHILS % (AUTO) 44.8 %; PLT - PLATELET COUNT 234 10^3/uL (130-450); RED BLOOD COUNT 3.94 10^6/uL (4.20-5.40); RED CELL DISTRIBUTION WIDTH 13.4 % (12.0-15.0); WHITE BLOOD COUNT 6.5 x10^3/uL (4.8-10.8)
[2021-05-22 12:22] LABS: ALBUMIN 3.9 g/dL (3.2-5.5); ALBUMIN/GLOBULIN RATIO 1.2 (1.0-2.2); ALKALINE PHOSPHATASE 52 IU/L (42-121); ALT ALANINE AMINOTRANSFERASE 13 IU/L (10-60); AST ASPARTATE AMINOTRANSFERASE 14 IU/L (10-42); BILIRUBIN,TOTAL 0.5 mg/dL (0.2-1.0); BUN - BLOOD UREA NITROGEN 9 mg/dL (6-20); CALCIUM 9.5 mg/dL (8.5-10.3); CARBON DIOXIDE - CO2 27 mmol/L (21-32); CHLORIDE 93 mmol/L (101-111); CHOL/HDL RATIO 2.4 (<4.4); CHOLESTEROL 123 mg/dL; CREATININE 0.9 mg/dL (0.4-1.0); GFR - MDRD 62 (>89); GLUCOSE 135 mg/dL (70-100); HDL CHOLESTEROL 52 mg/dL; LDL CHOLESTEROL,CALCULATED 48 mg/dL; LDL/HDL RATIO 0.9 (<4.4); POTASSIUM 4.1 mmol/L (3.5-5.0); SODIUM 129 mmol/L (135-145); TOTAL PROTEIN 7.1 g/dL (6.7-8.2); TRIGLYCERIDES 114 mg/dL; VLDL CHOLESTEROL 23 mg/dL
[2021-05-22 12:40] LABS: ESTIMATED AVERAGE GLUCOSE 140 mg/dL (70-100); HEMOGLOBIN A1c% 6.5 % (4.27-6.07)
[2021-05-22 13:13] LABS: CREATININE,URINE 235.4 mg/dL; MICROALBUMIN,URINE 7.3 mg/dL (0-300.0)
== END 2021-05-22 08:01 | disposition home or self-care (01) ==
LOC: LAB.WCP 08:00
PROVIDERS: ATTEND Family Medicine
DX: E87.1 Hypo-osmolality and hyponatremia (principal); E11.9 Type 2 diabetes mellitus without complications
CPT/HCPCS: 36415; 80053; 80061; 82043; 82570; 83036; 83721; 85025

== ENCOUNTER 2021-05-31 13:39 | Outpatient (CLI) | payer MEDICARE ==
--- NOTE | 2021-05-31 22:15 | XRAY Report ---
PROCEDURE: Lumbar Spine 2 View INDICATIONS: LOW BACK PX TECHNIQUE: 3 views of the lumbar spine were acquired. COMPARISON: None. FINDINGS: Bones: 5 [id number] vertebrae are present. There is mild levoscoliosis centered at L3 level. G rade 1 retrolisthesis at L1-2 and L2-3 levels are seen. Grade 1 anterolisthesis is seen at L4-5 and L 5-S1 levels.. No vertebral body compression fractures. Degenerative endplate changes and bilateral f acet arthrosis throughout lumbar spine is seen more prominent at L4-5 and L5-S1 levels. No suspicious bony lesions. There is prior fixation of left femoral neck. Soft tissues: Overlying bowel gas pattern is normal. No suspicious soft tissue calcifications. 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 No ac [place] compression fracture. Reviewed by: Francisco Suárez MD on 05/31/2021 10:14 PM PST Approved by: Francisco Suárez MD on 05/31/2021 10:14 PM PST Station ID: [id number]
== END 2021-05-31 13:40 | disposition home or self-care (01) ==
LOC: DI.N 13:39
PROVIDERS: ATTEND Family Medicine
DX: M43.16 Spondylolisthesis, lumbar region (principal); M47.816 Spondylosis without myelopathy or radiculopathy, lumbar region; M47.817 Spondylosis without myelopathy or radiculopathy, lumbosacral region; M51.36 Other intervertebral disc degeneration, lumbar region; M51.37 Other intervertebral disc degeneration, lumbosacral region

== ENCOUNTER 2022-02-08 07:09 | Outpatient (CLI) | payer MEDICARE ==
[2022-02-08 12:31] LABS: BASOPHILS % (AUTO) 0.4 %; EOSINOPHILS # (AUTO) 0.5 10^3/uL (0.0-0.7); EOSINOPHILS % (AUTO) 6.7 %; LYMPHOCYTES # (AUTO) 2.5 10^3/uL (1.5-3.5); LYMPHOCYTES % (AUTO) 36.7 %; MEAN CORPUSCULAR HEMOGLOBIN 29.8 pg (27.0-31.0); MEAN CORPUSCULAR HGB CONC 32.4 g/dL (32.0-36.0); MEAN CORPUSCULAR VOLUME 91.8 fL (81.0-99.0); MEAN PLATELET VOLUME 9.5 fL (7.9-10.8); MONOCYTES # (AUTO) 0.7 10^3/uL (0.0-1.0); MONOCYTES % (AUTO) 10.5 %; NEUTROPHILS # (AUTO) 3.1 10^3/uL (1.5-6.6); PLT - PLATELET COUNT 256 10^3/uL (130-450); RED BLOOD COUNT 4.03 10^6/uL (4.20-5.40); RED CELL DISTRIBUTION WIDTH 14.1 % (12.0-15.0); WHITE BLOOD COUNT 6.8 x10^3/uL (4.8-10.8)
[2022-02-08 12:42] LABS: CREATININE,URINE 158.6 mg/dL; MICROALBUM/CREATININE RATIO,UR 76.3 ug/mg (<30.0); MICROALBUMIN,URINE 12.1 mg/dL (0-300.0)
[2022-02-08 12:47] LABS: ESTIMATED AVERAGE GLUCOSE 137 mg/dL (70-100); HEMOGLOBIN A1c% 6.4 % (4.27-6.07)
[2022-02-08 12:54] LABS: ALBUMIN 4.2 g/dL (3.2-5.5); ALBUMIN/GLOBULIN RATIO 1.3 (1.0-2.2); ALKALINE PHOSPHATASE 59 IU/L (42-121); ALT ALANINE AMINOTRANSFERASE 13 IU/L (10-60); AST ASPARTATE AMINOTRANSFERASE 15 IU/L (10-42); BILIRUBIN,TOTAL 0.5 mg/dL (0.2-1.0); BUN - BLOOD UREA NITROGEN 13 mg/dL (6-20); CALCIUM 9.3 mg/dL (8.5-10.3); CARBON DIOXIDE - CO2 29 mmol/L (21-32); CHLORIDE 89 mmol/L (101-111); CHOL/HDL RATIO 2.8 (<4.4); CHOLESTEROL 146 mg/dL; CREATININE 0.9 mg/dL (0.4-1.0); GFR - MDRD 62 (>89); GLUCOSE 118 mg/dL (70-100); HDL CHOLESTEROL 52 mg/dL; LDL CHOLESTEROL,CALCULATED 76 mg/dL; LDL/HDL RATIO 1.5 (<4.4); POTASSIUM 4.1 mmol/L (3.5-5.0); SODIUM 128 mmol/L (135-145); TOTAL PROTEIN 7.4 g/dL (6.7-8.2); TRIGLYCERIDES 92 mg/dL; VLDL CHOLESTEROL 18 mg/dL
== END 2022-02-08 07:10 | disposition home or self-care (01) ==
LOC: LAB.N 07:09
PROVIDERS: ATTEND Nurse Practitioner Family
DX: E11.9 Type 2 diabetes mellitus without complications (principal); E78.5 Hyperlipidemia, unspecified; I10 Essential (primary) hypertension
CPT/HCPCS: 36415; 80053; 80061; 82043; 82570; 83036; 83721; 85025

== ENCOUNTER 2022-05-07 13:46 | Outpatient (CLI) | payer MEDICARE ==
--- NOTE | 2022-05-07 15:05 | XRAY Report ---
PROCEDURE: Chest 2 View X-Ray INDICATIONS: COUGH TECHNIQUE: 2 views of the chest were acquired. COMPARISON: 05/25/2020. FINDINGS: Surgical changes and devices: None. Lungs and pleura: No pleural effusions or pneumothorax. Lungs are clear of acute opacities.. Mediastinum: Mediastinal contours are normal. Heart size is normal. Bones and chest wall: No suspicious bony abnormalities. Soft tissues appear unremarkable. IMPRESSION: No acute cardiopulmonary disease process. Reviewed by: Bridget Bahena MD, PhD on 05/07/2022 3:03 PM PST Approved by: Bridget Bahena MD, PhD on 05/07/2022 3:03 PM PST Station ID: [id number]
== END 2022-05-07 23:59 | disposition home or self-care (01) ==
LOC: DI.N 13:46
PROVIDERS: ATTEND Registered Nurse
DX: R05.1 Acute cough (principal); R09.02 Hypoxemia

== ENCOUNTER 2022-06-12 08:43 | Outpatient (CLI) | payer MEDICARE ==
--- NOTE | 2022-06-13 12:42 | Mammography Report ---
BILATERAL DIGITAL SCREENING MAMMOGRAM 3D/2D: 06/12/2022 CLINICAL: Routine screening. Comparison is made to exams dated: 05/17/2020 mammogram, 04/13/2019 mammogram, 04/01/2018 mammogram, mammogram, 10/24/2015 mammogram, and 10/20/2014 mammogram - [facility]. Both breasts are heterogeneously dense, which may obscure small masses (category c / 51-75% glandular tissue). There are new grouped heterogeneous calcifications in the left breast central to the nipple middle de pth. No other significant masses, calcifications, or other findings are seen in either breast. IMPRESSION: INCOMPLETE: NEEDS ADDITIONAL IMAGING EVALUATION The new grouped heterogeneous calcifications in the left breast are indeterminate. Diagnostic mammogram for additional views to include mediolateral and spot magnification views is rec ommended. Based on the Tyrer Cuzick model (a risk assessment model) the patients lifetime risk is 6.1% and her 10 year risk is 3.9%. According to the ACR, ACS, and NCCN guidelines, an annual breast MRI exam paulina g with mammogram is recommended if the patients lifetime risk is 20% or greater. This exam was interpreted at Station ID: [id number]. NOTE: For mammograms, a report in lay terms will be sent to the patient. Approximately 15% of breast malignancies will not be visualized mammographically. In the management of a palpable breast mass, a negative mammogram must not discourage biopsy of a clinically suspicious lesion. Electronically Signed By: Santhosh Garcia M.D. aty/:06/12/2022 17:42:10 ACR BI-RADS Category 0: Incomplete 3340F PARENCHYMAL PATTERN: (D) - The breast(s) demonstrate(s) heterogeneously dense fibroglandular parenchy ma. BI-RADS CATEGORY: (0) - 0 RECOMMENDATION: (ADDMAM) - Recommend additional mammographic views. [id number] Immediate follow-up LATERALITY: (L)
== END 2022-06-12 08:44 | disposition home or self-care (01) ==
LOC: DI.N 08:43
DX: Z12.31 Encounter for screening mammogram for malignant neoplasm of breast (principal); R92.1 Mammographic calcification found on diagnostic imaging of breast

== ENCOUNTER 2022-06-27 08:15 | Outpatient (CLI) | payer MEDICARE ==
--- NOTE | 2022-06-28 15:28 | Mammography Report ---
UNILATERAL LEFT DIGITAL DIAGNOSTIC MAMMOGRAM 3D/2D WITH MAGNIFICATION: 06/27/2022 CLINICAL: Patient returns for magnification views of microcalcifications in the left breast. Comparison is made to exams dated: 06/12/2022 mammogram, 05/17/2020 mammogram, 04/13/2019 mammogram, and 04/01/2018 mammogram - [facility]. The left breast is heterogeneously dense, which may obscure small masses (category c / 51-75% glandul ar tissue). There is a 3 mm area of grouped heterogeneous calcifications in the left breast central to the nipple middle depth. These are seen in additional views. These calcifications may have been present on p rior exams, but appear more prominent on the most recent exam, possibly due to differences in digital mammography and tomosynthesis. No other significant masses or calcifications are seen in the breast. IMPRESSION: PROBABLY BENIGN The 3 mm area of grouped heterogeneous calcifications in the left breast are probably benign. A follow-up left mammogram in 6 months is recommended to demonstrate stability. Based on the Tyrer Cuzick model (a risk assessment model) the patients lifetime risk is 6.1% and her 10 year risk is 3.9%. According to the ACR, ACS, and NCCN guidelines, an annual breast MRI exam paulina g with mammogram is recommended if the patients lifetime risk is 20% or greater. This exam was interpreted at Station ID: [id number]. NOTE: For mammograms, a report in lay terms will be sent to the patient. Approximately 15% of breast malignancies will not be visualized mammographically. In the management of a palpable breast mass, a negative mammogram must not discourage biopsy of a clinically suspicious lesion. Electronically Signed By: Kel elw/velma:06/27/2022 12:27:28 ACR BI-RADS Category 3: Probably benign 3343F PARENCHYMAL PATTERN: (D) - The breast(s) demonstrate(s) heterogeneously dense fibroglandular parhariy ema. BI-RADS CATEGORY: (3) - 3 Mammogram [id number] 6 month follow-up LATERALITY: (L)
== END 2022-06-27 08:16 | disposition home or self-care (01) ==
LOC: DI 08:15
PROVIDERS: ATTEND Nurse Practitioner Family
DX: R92.1 Mammographic calcification found on diagnostic imaging of breast (principal)

== ENCOUNTER 2022-08-16 08:12 | Outpatient (CLI) | payer MEDICARE ==
--- NOTE | 2022-08-16 13:09 | DEXA Report ---
PROCEDURE: Dexa Spine and/or Hip INDICATIONS: POST MENOPAUSAL TECHNIQUE: Dual energy x-ray absorptiometry (DXA) was performed on a [employer] System. Regions measur ed are the AP Spine, femoral neck, and if needed forearm. COMPARISON: None. FINDINGS: Lumbar Spine: Bone Mineral Density 1.203 g/cm/cm,T score 0.2, previous bone mineral density 1.117 Left Femoral Neck: Bone Mineral Density 0.908 g/cm/cm, T score -0.9, normal Left Hip: Bone Mineral Density 0.897 g/cm/cm,T score -0.9, previous bone mineral density 0.970 (T score greater or equal to -1.0: NORMAL) (T score from -1.1 to -2.4: OSTEOPENIA) (T score less than or equal to -2.5 to: OSTEOPOROSIS) Impression: Normal bone mineral density Interval decrease in bone mineral density noted in the left hip Patients with diagnosis of osteoporosis or osteopenia should have regular bone mineral density assess ment. For those eligible for Medicare, routine testing is allowed once every 2 years. Testing frequ ency can be increased for patients who have rapidly progressing disease or for those who are receivin g medical therapy to restore bone mass. Reviewed by: Chidi Delgado MD on 08/16/2022 12:08 PM DAVID Approved by: Chidi Delgado MD on 08/16/2022 12:08 PM DAVID Station ID: [id number]
== END 2022-08-16 08:13 | disposition home or self-care (01) ==
LOC: DI 08:12
PROVIDERS: ATTEND Nurse Practitioner
DX: Z78.0 Asymptomatic menopausal state (principal)

== ENCOUNTER 2023-01-14 09:02 | Outpatient (CLI) | payer MEDICARE ==
[2023-01-14 09:20] LABS: BASOPHILS % (AUTO) 0.5 %; EOSINOPHILS # (AUTO) 0.3 10^3/uL (0.0-0.7); EOSINOPHILS % (AUTO) 4.5 %; HCT - HEMATOCRIT 37.7 % (37.0-47.0); HGB - HEMOGLOBIN 12.2 g/dL (12.0-16.0); LYMPHOCYTES # (AUTO) 2.2 10^3/uL (1.5-3.5); LYMPHOCYTES % (AUTO) 33.7 %; MEAN CORPUSCULAR HEMOGLOBIN 30.8 pg (27.0-31.0); MEAN CORPUSCULAR HGB CONC 32.4 g/dL (32.0-36.0); MEAN CORPUSCULAR VOLUME 95.2 fL (81.0-99.0); MEAN PLATELET VOLUME 8.7 fL (7.9-10.8); MONOCYTES # (AUTO) 0.5 10^3/uL (0.0-1.0); MONOCYTES % (AUTO) 8.3 %; NEUTROPHILS # (AUTO) 3.4 10^3/uL (1.5-6.6); NEUTROPHILS % (AUTO) 52.5 %; PLT - PLATELET COUNT 227 10^3/uL (130-450); RED BLOOD COUNT 3.96 10^6/uL (4.20-5.40); RED CELL DISTRIBUTION WIDTH 13.5 % (12.0-15.0); WHITE BLOOD COUNT 6.5 x10^3/uL (4.8-10.8)
[2023-01-14 09:50] LABS: ALBUMIN 4.4 g/dL (3.2-5.5); ALBUMIN/GLOBULIN RATIO 1.8 (1.0-2.2); BILIRUBIN,TOTAL 0.5 mg/dL (0.2-1.0); CALCIUM 9.6 mg/dL (8.5-10.3); CREATININE 0.9 mg/dL (0.6-1.3); POTASSIUM 4.2 mmol/L (3.5-4.5); TOTAL PROTEIN 6.9 g/dL (6.4-8.9)
[2023-01-14 11:16] LABS: ESTIMATED AVERAGE GLUCOSE 140 mg/dL (70-100); HEMOGLOBIN A1c% 6.5 % (4.27-6.07)
== END 2023-01-14 09:03 | disposition home or self-care (01) ==
LOC: LAB 09:02
PROVIDERS: ATTEND Nurse Practitioner
DX: E87.1 Hypo-osmolality and hyponatremia (principal); E11.9 Type 2 diabetes mellitus without complications; D64.9 Anemia, unspecified
CPT/HCPCS: 36415; 80053; 83036; 85025

== ENCOUNTER 2023-02-19 09:13 | Outpatient (CLI) | payer MEDICARE ==
--- NOTE | 2023-02-20 10:08 | Mammography Report ---
UNILATERAL LEFT DIGITAL DIAGNOSTIC MAMMOGRAM 3D/2D WITH MAGNIFICATION: 02/19/2023 CLINICAL: Patient returns for a 6 month follow up of the left breast calcifications. Comparison is made to exams dated: 06/27/2022 mammogram, 06/12/2022 mammogram, 04/13/2019 mammogram, 05/17 mammogram, 04/01/2018 mammogram, and 12/31/2016 mammogram - [facility]. The left breast is heterogeneously dense, which may obscure small masses (category c / 51-75% glandul ar tissue). There is a stable 3 mm area of grouped heterogeneous calcifications in the left breast central to the nipple middle depth. These calcifications may have been present on prior exams, but appear more pr ominent on the most recent exam, possibly due to differences in digital mammography and tomosynthesis . No other significant masses or calcifications are seen in the breast. IMPRESSION: PROBABLY BENIGN The stable 3 mm area of grouped heterogeneous calcifications in the left breast are probably benign. A follow-up mammogram in 6 months is recommended to demonstrate stability. Patient will be due for right mammogram at that time. Exam findings were conveyed to the patient. Based on the Tyrer Cuzick model (a risk assessment model) the patients lifetime risk is 5.8% and her 10 year risk is 4.0%. According to the ACR, ACS, and NCCN guidelines, an annual breast MRI exam paulina g with mammogram is recommended if the patients lifetime risk is 20% or greater. This exam was interpreted at Station ID: [id number]. NOTE: For mammograms, a report in lay terms will be sent to the patient. Approximately 15% of breast malignancies will not be visualized mammographically. In the management of a palpable breast mass, a negative mammogram must not discourage biopsy of a clinically suspicious lesion. Electronically Signed By: David Vásquez M.D. slc/:02/19/2023 11:02:42 ACR BI-RADS Category 3: Probably benign 3343F PARENCHYMAL PATTERN: (D) - The breast(s) demonstrate(s) heterogeneously dense fibroglandular parenchy ma. BI-RADS CATEGORY: (3) - 3 Mammogram [id number] 6 month follow-up LATERALITY: (B)
== END 2023-02-19 09:14 | disposition home or self-care (01) ==
LOC: DI 09:13
PROVIDERS: ATTEND Nurse Practitioner
DX: R92.332 Mammographic heterogeneous density, left breast (principal); R92.1 Mammographic calcification found on diagnostic imaging of breast

== ENCOUNTER 2023-03-25 12:51 | Outpatient (CLI) | payer MEDICARE | END 2023-03-25 12:52 | disposition EMS.NT | LOC: EMS 12:51 | DX: Z03.89 Encounter for observation for other suspected diseases and conditions ruled out (principal) ==

== ENCOUNTER 2023-04-14 08:02 | Outpatient (CLI) | payer MEDICARE ==
[2023-04-14 12:11] LABS: CREATININE,URINE 12.2 mg/dL; MICROALBUM/CREATININE RATIO,UR 139.3 ug/mg (<30.0); MICROALBUMIN,URINE 1.7 mg/dL
[2023-04-14 12:39] LABS: THYROID STIMULATING HORMONE 4.05 uIU/mL (0.34-5.60)
[2023-04-14 12:45] LABS: FERRITIN 68.7 ng/mL (11.0-306.8)
[2023-04-14 12:52] LABS: % IRON SATURATION 20 % (20-50); ALBUMIN 4.3 g/dL (3.2-5.5); ALBUMIN/GLOBULIN RATIO 1.9 (1.0-2.2); ALKALINE PHOSPHATASE 68 IU/L (42-121); ALT ALANINE AMINOTRANSFERASE 8 IU/L (10-60); AST ASPARTATE AMINOTRANSFERASE 12 IU/L (10-42); BILIRUBIN,TOTAL 0.5 mg/dL (0.2-1.0); BUN - BLOOD UREA NITROGEN 10 mg/dL (6-20); CALCIUM 9.2 mg/dL (8.5-10.3); CARBON DIOXIDE - CO2 29 mmol/L (21-32); CHLORIDE 92 mmol/L (101-111); CHOL/HDL RATIO 2.1 (<4.4); CHOLESTEROL 113 mg/dL; CREATININE 0.9 mg/dL (0.6-1.3); GFR - MDRD 62 (>89); GLUCOSE 108 mg/dL (74-104); HDL CHOLESTEROL 55 mg/dL; IRON 58 ug/dL (50-212); LDL CHOLESTEROL,CALCULATED 43 mg/dL; LDL/HDL RATIO 0.8 (<4.4); POTASSIUM 4.5 mmol/L (3.5-4.5); SODIUM 127 mmol/L (135-145); TOTAL IRON BINDING CAPACITY 294 ug/dL (250-450); TOTAL PROTEIN 6.6 g/dL (6.4-8.9); TRANSFERRIN 210 mg/dL (203-362); TRIGLYCERIDES 76 mg/dL (48-352); VLDL CHOLESTEROL 15 mg/dL
[2023-04-14 12:59] LABS: ESTIMATED AVERAGE GLUCOSE 131 mg/dL (70-100); HEMOGLOBIN A1c% 6.2 % (4.27-6.07)
== END 2023-04-14 08:03 | disposition home or self-care (01) ==
LOC: LAB.N 08:02
PROVIDERS: ATTEND Nurse Practitioner
DX: E22.2 Syndrome of inappropriate secretion of antidiuretic hormone (principal); E78.5 Hyperlipidemia, unspecified; E11.9 Type 2 diabetes mellitus without complications; R53.83 Other fatigue; G25.81 Restless legs syndrome; Z51.81 Encounter for therapeutic drug level monitoring
CPT/HCPCS: 36415; 80053; 80061; 82043; 82570; 82607; 82728; 83036; 83540; 83721; 84443; 84466

== ENCOUNTER 2023-05-06 10:36 | Outpatient (CLI) | payer MEDICARE ==
--- NOTE | 2023-05-06 16:12 | MRI Report ---
PROCEDURE: LUMBAR SPINE WO INDICATIONS: BILATERALLEG WEAKNESS, LUMBAGO TECHNIQUE: Noncontrast sagittal T1 spin echo and T2 fast echo, sagittal STIR, axial T1 and T2 fast spin echo thr ough the lumbar spine. In cases with scoliosis, additional coronal T2 fast spin echo may be performe d. COMPARISON: None. FINDINGS: Image quality: Excellent. Alignment and Curvature: Mild levocurvature lumbar spine. Grade I anterolisthesis of L4 on L5.. Bone Marrow: Marrow is of normal overall signal. No acute vertebral body compression fractures. Spinal Cord: Conus medullaris terminates at the L1 level. Visualized cord demonstrates normal signa l and size. Paraspinous Soft Tissues: No paravertebral masses. Bilateral peripelvic renal cysts. T12-L1: No central canal or neuroforaminal stenosis. L1-L2: Disc desiccation, height loss and a posterior disc bulge. Mild facet arthropathy. No centra l canal or neuroforaminal stenosis. L2-L3: Disc desiccation, height loss and a posterior disc bulge. Facet arthropathy and thickening of ligamentum flavum. Epidural lipomatosis. Mild central canal stenosis. Mild bilateral neuroforamina l stenosis. L3-L4: Disc desiccation and minimal disc bulge. Facet arthropathy and thickening of ligamentum flav um. No central canal stenosis. Mild bilateral neuroforaminal stenosis. L4-L5: Anterolisthesis. Disc desiccation. Facet arthropathy. Mild central canal stenosis. Moderate bilateral neuroforaminal stenosis. L5-S1: Disc desiccation. Facet arthropathy. No central canal stenosis. Mild bilateral neuroforamina l stenosis. IMPRESSION: 1.Multilevel degenerative changes of the lumbar spine with grade 1 anterolisthesis of L4 on L5. 2.Mild central canal stenosis at L2-L3 and L4-L5. 3.Moderate bilateral neuroforaminal stenosis at L4-5. Mild neuroforaminal stenosis at other levels. Reviewed by: Jose Jacome MD on 05/06/2023 4:11 PM PST Approved by: Jose Jacome MD on 05/06/2023 4:11 PM PST Station ID: [id number]
== END 2023-05-06 10:37 | disposition home or self-care (01) ==
LOC: DI 10:36
PROVIDERS: ATTEND Nurse Practitioner
DX: R29.898 Other symptoms and signs involving the musculoskeletal system (principal); M47.816 Spondylosis without myelopathy or radiculopathy, lumbar region; M43.16 Spondylolisthesis, lumbar region; M48.061 Spinal stenosis, lumbar region without neurogenic claudication; M48.07 Spinal stenosis, lumbosacral region

== ENCOUNTER 2023-10-15 07:33 | Outpatient (CLI) | payer MEDICARE ==
[2023-10-15 13:21] LABS: ESTIMATED AVERAGE GLUCOSE 128 mg/dL (70-100); HEMOGLOBIN A1c% 6.1 % (4.27-6.07)
== END 2023-10-15 07:34 | disposition home or self-care (01) ==
LOC: LAB.N 07:33
PROVIDERS: ATTEND Nurse Practitioner
DX: E11.9 Type 2 diabetes mellitus without complications (principal)
CPT/HCPCS: 36415; 83036